=== PATIENT | male | born 1975 | race Caucasian/White ===

== ENCOUNTER → 2016-11-10 | Emergency (ER) | payer BC, OTHER ==
[~2016-11-10] VITALS: Ht 177.8 cm; Wt 83.0 kg
[~2016-11-10] MED LIST: BSS 15 ML IR ONE; FLUORESCEIN (FLUOR-I-STRIPS) 1 MG STRP OU ONE; TETRACAINE 0.5% OPHTH SOLN 4 ML BTL (SINGLE DOSE ONLY) OP ONE
[2016-11-10 23:15] VITALS: BP 141/96
--- OUTSIDE RECORDS SUMMARY | 2016-11-10 23:17 | XMS REPORT | Continuity of Care Document ---
Author Author [facility] Address Unknown Phone Unavailable Allergies Medications Problems Date Dx Coded Attending Type Code Diagnosis Diagnosed By 02/19/2014 ANGELINE SHEFFIELD APRN 296.90 MOOD DISORDER 02/19/2014 ANGELINE SHEFFIELD APRN 719.41 PAIN- SHOULDER 02/19/2014 ANGELINE SHEFFIELD APRN 296.90 MOOD DISORDER 02/19/2014 ANGELINE SHEFFIELD APRN 719.41 PAIN- SHOULDER Procedures Results Encounters ACCT No. Visit Date/Time Discharge Status Pt. Type Provider Facility Loc./Unit Complaint [id number] 03/23/2014 16:19:00 03/23/2014 23: 59:59 CLS Outpatient ANGELINE SHEFFIELD APRN [id number] 02/19/2014 15:59:00 02/19/2014 23: 59:59 CLS Outpatient ANGELINE SHEFFIELD APRN
--- OUTSIDE RECORDS SUMMARY | 2016-11-10 23:17 | XMS REPORT ---
Author OUSMANE Landaverde [facility] eClinicalWorks Address Unknown Phone Unavailable Care Team Providers Care Community Marketing Manager Name Role Phone OUSMANE LAM CP Unavailable Allergies, Adverse Reactions, Alerts Substance Reaction Event Type N.K.D.A. Info Not Available Non Drug Allergy Problems Problem Type Condition Code Onset Dates Condition Status Problem Pain in joint, shoulder region 719.41 Active Assessment Unspecified mood [affective] disorder F39 Active Problem Unspecified episodic mood disorder 296.90 Active Assessment Joint pain M25.50 Active Medications Medication Code System Code Instructions Start Date End Date Status Dosage Prozac [facility] [address]-04 20 mg Once a day Jun 28, 2014 1 capsule by Oral route 1 time per day Meloxicam [facility] [address]-63 15 MG Orally Once a day Jun 28, 2014 take 1 tablet by Oral route 1 time per day Procedures Procedure Coding System Code Date Office Visit, Est Pt., Level 4 CPT-4 33037 August 26, 2015 Vital Signs Date/Time: August 26, 2015 Temperature 98.0 F Weight 205 lbs Height 70 in BMI 29.41 Index Blood Pressure Diastolic 62 mmHg Blood Pressure Systolic 118 mmHg Cardiac Monitoring Heart Rate 72 bpm Results No Known Results Summary Purpose eClinicalWorks Submission
--- NOTE | 2016-11-10 23:59 | ED EENT ---
History of Present Illness General Chief Complaint: Eye Problems Stated Complaint: F O IN RT EYE Nursing Triage Note: PT TO ED 5 W/ C/O POSS FB TO RT EYE ONSET TODAY WHILE WORKING ON HIS TRUCK AT HOME. REPORTS HE ATTEMPTED TO FLUSH HIS EYE BUT DENIES IMPROVEMENT Source: patient Exam Limitations: no limitations History of Present Illness Time seen by provider: 23:38 Initial Comments This 41-year-old gentleman presents to the emergency room with complaints of foreign-body sensation in the right eye. Patient was working on his car when a piece of brittle plastic broke off and debris hit his eye. He attempted flushing the eye out with tap water. However, he still has a foreign body sensation. He denies any significant sensitivity to light or changes in vision. Sensation is migratory but seems to be focused behind the upper eyelid. The incident happened around 17:00. Allergies and Home Medications Allergies Coded Allergies: No Known Drug Allergies (Unverified , 11/10/16) Review of Systems Constitutional: no symptoms reported Eyes: See HPI Ears: No Symptoms Reported Nose: no symptoms reported Mouth: no symptoms reported Skin: no symptoms reported Neurological: No Symptoms Reported Past Srqciyt-Tsqlmh-Ftxehx Hx Patient Social History Alcohol Use: Denies Use Recreational Drug Use: No Smoking Status: Current Everyday Smoker Type Used: Cigarettes Recent Foreign Travel: No Contact w/Someone Who Travel: No Recent Infectious Disease Expo: No Recent Hopitalizations: No Surgeries HX Surgeries: No Respiratory Hx Respiratory Disorders: No Cardiovascular Hx Cardiac Disorders: No Neurological Hx Neurological Disorders: No Genitourinary Hx Genitourinary Disorders: No Gastrointestinal Hx Gastrointestinal Disorders: No Musculoskeletal Hx Musculoskeletal Disorders: No Endocrine Hx Endocrine Disorders: No HEENT HX ENT Disorders: No Cancer Hx Cancer: No Psychosocial Hx Psychiatric Problems: No Physical Exam Vital Signs Vital Sign - Last 12Hours 11/10/16 23:15 Temp 98.3 Pulse 75 Resp 20 B/P (MAP) 141/96 Pulse Ox 99 O2 Delivery Room Air General Appearance: WD/WN, no apparent distress Eyes: right eye other (Minor conjunctival edema), left eye normal inspection, bilateral eye EOMI, bilateral eye PERRL Nose: normal inspection Neck: normal inspection Cardiovascular: regular rate, rhythm, no edema, no murmur Respiratory: lungs clear, normal breath sounds, no respiratory distress, no accessory muscle use Neurologic/Psychiatric: credit representative II-XII nml as tested, no motor/sensory deficits, alert, normal mood/affect, oriented x 3 Skin: normal color, warm/dry Additional Procedures : Progress Fluorescein exam was performed on the right eye. Tetracaine was first applied for anesthesia. No foreign bodies or corneal abrasions were identified with exam. The eye was irrigated with balanced saline. Progress/Results/Core Measures Results/Orders My Orders Orders - REUBEN CHAVARRIA MD Fluorescein Strips (Fcnwy-X-Hauabg) (11/10/16 23:45) Balanced Salt Irrigation Soln (Bss Irrig (11/10/16 23:45) Tetracaine 0.5% Ophth Matilda Sdv (Tetracai (11/10/16 23:45) Medications Given in ED Current Medications Medications Dose Ordered Sig/Yu Route Start Time Stop Time Status Last Admin Dose Admin Balanced Salt Solution 15 ml ONCE ONCE IR 11/10/16 23:45 11/10/16 23:46 DC 11/10/16 23:45 15 ML Fluorescein Sodium 1 mg ONCE ONCE OU 11/10/16 23:45 11/10/16 23:46 DC 11/10/16 23:45 1 MG Tetracaine HCl 1 OR 2 DROPS INTO AFFEC... ONCE ONCE OP 11/10/16 23:45 11/10/16 23:46 DC 11/10/16 23:45 4 ML Vital Signs/I&O Vital Sign - Last 12Hours 11/10/16 23:15 Temp 98.3 Pulse 75 Resp 20 B/P (MAP) 141/96 Pulse Ox 99 O2 Delivery Room Air Blood Pressure Mean: 111 Departure Impression Impression: Primary Impression: Irritation of right eye Disposition: HOME, SELF-CARE Condition: Improved Departure-Patient Inst. Decision time for Depature: 23:57 Referrals: [facility] (PCP) Primary Care Physician WANDA GALAN OD Patient Instructions: NO INSTRUCTIONS GIVEN Add. Discharge Instructions: You may use artificial tears purchased [id number] for moisturizing comfort. You may use Tylenol and/or ibuprofen for pain if needed. Contact Dr. Galan's office or the eye doctor of your choice tomorrow morning if symptoms are still present. Return to the ER if you have worsening symptoms. All discharge instructions reviewed with patient and/or family. Voiced understanding. REUBEN CHAVARRIA MD Nov 10, 2016 23:59
== END | disposition home or self-care (01) ==
LOC: ER 23:14
DX: H57.8 Other specified disorders of eye and adnexa (principal); F17.210 Nicotine dependence, cigarettes, uncomplicated
CPT/HCPCS: 99282

== ENCOUNTER → 2016-11-29 | Outpatient (CLI) | payer BC ==
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
== END ==
LOC: RAD 14:58
PROVIDERS: ATTEND Nurse Practitioner Family
DX: R07.81 Pleurodynia (principal)
CPT/HCPCS: 71100

== ENCOUNTER 2019-03-01 09:04 | Emergency (ER) | payer BC, OTHER ==
[~2019-03-01] VITALS: Ht 177.8 cm; Wt 95.4 kg
[2019-03-01] MEDS ORDERED: NS IV 1000 ML 1,000 ML IV ONE (09:17)
[2019-03-01 09:24] LABS: BASOPHILS % (AUTO) 0 % (0-10); EOSINOPHILS # (AUTO) 0.3 10^3/uL (0.0-0.3); EOSINOPHILS % (AUTO) 1 % (0-10); HEMATOCRIT 47 % (40-54); HEMOGLOBIN 15.5 G/DL (13.3-17.7); LYMPHOCYTES # (AUTO) 2.6 X 10^3 (1.0-4.0); LYMPHOCYTES % (AUTO) 13 % (12-44); MEAN CORPUSCULAR HEMOGLOBIN 29 PG (25-34); MEAN CORPUSCULAR HGB CONC 33 G/DL (32-36); MEAN CORPUSCULAR VOLUME 87 FL (80-99); MEAN PLATELET VOLUME 11.1 FL (7.4-10.4); MONOCYTES # (AUTO) 1.4 X 10^3 (0.0-1.0); MONOCYTES % (AUTO) 7 % (0-12); NEUTROPHILS # (AUTO) 15.3 X 10^3 (1.8-7.8); NEUTROPHILS % (AUTO) 78 % (42-75); PLATELET COUNT 246 10^3/uL (130-400); RED CELL DISTRIBUTION WIDTH 12.8 % (10.0-14.5); WHITE BLOOD COUNT 19.6 10^3/uL (4.3-11.0)
[2019-03-01] MEDS ORDERED: DILTIAZEM 25 MG/5 ML INJ (CARDIZEM) VIAL IVP ONE (09:30)
[2019-03-01] MEDS ORDERED: DILTIAZEM IV FOR DRIP 125 MG in NS (IVPB) 100 ML IV SCH (09:30)
[2019-03-01] MEDS ORDERED: LORazepam INJ 2 MG/ML (ATIVAN) VIAL IVP ONE ×3 (09:30→12:00)
[2019-03-01] MEDS ORDERED: ONDANSETRON 4 MG/2 ML (SDV) Z0FRAN IVP ONE (09:30)
[2019-03-01] MEDS ORDERED: fentaNYL INJECTION 100 MCG/2 ML AMP IVP ONE (09:30)
[2019-03-01 09:40] LABS: PROTHROMBIN TIME PATIENT 13.4 SEC (12.2-14.7)
[2019-03-01 09:48] LABS: ALANINE AMINOTRANSFERASE 82 U/L (0-55); ALBUMIN 4.5 GM/DL (3.2-4.5); ALKALINE PHOSPHATASE 148 U/L (40-136); BILIRUBIN,TOTAL 0.7 MG/DL (0.1-1.0); BUN/CREATININE RATIO 10; CALCIUM 9.8 MG/DL (8.5-10.1); CARBON DIOXIDE 18 MMOL/L (21-32); CHLORIDE 104 MMOL/L (98-107); CREATININE SERUM 1.03 MG/DL (0.60-1.30); GFR ESTIMATED > 60; GLUCOSE 182 MG/DL (70-105); MAGNESIUM 1.8 MG/DL (1.6-2.4); POTASSIUM 3.5 MMOL/L (3.6-5.0); SODIUM 140 MMOL/L (135-145); TOTAL PROTEIN 7.9 GM/DL (6.4-8.2)
--- NOTE | 2019-03-01 09:53 | NUR ---
TO CT ACCOMPIED BY CT NURSE COOKIE
[2019-03-01] MEDS ORDERED: FLUO40CA (10:05)
--- NOTE | 2019-03-01 10:05 | NUR ---
BACK FROM CT.
--- NOTE | 2019-03-01 10:14 | NUR ---
PATIENT CON'T TO C/O HEADACHE. NOTIFIED.
--- NOTE | 2019-03-01 10:21 | NUR ---
CONVERTED TO NSR.
--- NOTE | 2019-03-01 10:37 | Diagnostic Imaging Report ---
PROCEDURE: CT head wo r/o stroke. TECHNIQUE: Multiple contiguous axial images were obtained through the brain without the use of intravenous contrast. Auto Exposure Controls were utilized during the CT exam to meet ALARA standards for radiation dose reduction. INDICATION: Weakness and headache. No prior studies are available for comparison. Lateral ventricles are normal in size. There is some mild prominence of the temporal horns bilaterally. Acute subarachnoid hemorrhage is present. There is acute subarachnoid blood identified in the suprasellar cistern as well as the pre-pontine cistern. There is a small amount of acute blood identified within the 4th ventricle as well as the 3rd ventricle. There is a small focus of hyperdensity in the region of the basilar tip. No midline shift is identified. No intraparenchymal hemorrhage is detected. There is some mucosal thickening of the ethmoid air cells. IMPRESSION: Findings consistent with acute subarachnoid hemorrhage, as described. Findings favor ruptured aneurysm. There is a small focus of hyperdensity in the region of the basilar tip and this could be secondary to basilar tip aneurysm. Correlation with conventional or CT angiography is recommended for further evaluation. Findings were discussed Dr. Martínez of the emergency Department prior to this dictation. Dictated by: Dictated on workstation # [id number]
--- NOTE | 2019-03-01 10:38 | Diagnostic Imaging Report ---
INDICATION: Nausea and vomiting and headache. Time of exam 10:07 AM The heart size is normal. The pulmonary vascularity is unremarkable. The lungs are clear. No infiltrate, effusion or pneumothorax is detected. Impression: No acute cardiopulmonary process is detected. Dictated by: Dictated on workstation # [id number]
[2019-03-01] MEDS ORDERED: morphine INJ 10 MG/ML 1ML (SYR OR VIAL) IVP STA (10:48)
--- NOTE | 2019-03-01 10:48 | ED General ---
General Chief Complaint: Head/Cervical Problems Stated Complaint: WEAKNESS;N/V;ANDINO Nursing Triage Note: TO ED PER EMS C/O HEAD AND NECK PAIN FOR 3 DAYS DENIES CHEST PAIN.ALSO REPORTS FEEING NUMB ALL OVER. MONITOR SHOW'S A FIB WITH RATE OF 150 DENIES ANY HX OF A FIB. PALE AND DIAPHORETIC. PMH OF DRINKING DAILY LAST DRINK YESTERDAY. Nursing Sepsis Screen: No Definite Risk Source of Information: Patient Exam Limitations: No Limitations History of Present Illness Date Seen by Provider: Mar 01, 2019 Time Seen by Provider: 09:05 Initial Comments This 43-year-old gentleman presents to the emergency room with atrial fibrillation with RVR. He presents via EMS due to generally feeling quite ill and nausea and vomiting. He complains of feeling ill for a couple of weeks. Illness included a dry cough. He denies any fever. He has had head and neck pain over the past 2 days without any focal neurologic deficits. Patient's heart rate on arrival was around 150 and rhythm appears to be atrial fibrillation. Patient also admits to consuming alcohol daily. He has not had any alcohol since yesterday. He denies any prior history of atrial fibrillation. He denies any chest pain. Patient denies any trauma. Allergies and Home Medications Allergies Coded Allergies: No Known Drug Allergies (Unverified , 11/10/16) Patient Home Medication List Home Medication List Reviewed: Yes Review of Systems Review of Systems Constitutional: see HPI EENTM: no symptoms reported Respiratory: see HPI Cardiovascular: see HPI Gastrointestinal: no symptoms reported Genitourinary: no symptoms reported Musculoskeletal: no symptoms reported Skin: other (diaphoretic) Psychiatric/Neurological: See HPI, Headache Hematologic/Lymphatic: No Symptoms Reported Immunological/Allergic: no symptoms reported Past Godolyh-Uxakjy-Zjxhld Hx Past Med/Social Hx: Reviewed and Corrections made Patient Social History Alcohol Use: Regular Use Alcohol Beverage of Choice: Beer Recreational Drug Use: No Smoking Status: Current Everyday Smoker Type Used: Cigarettes Recent Foreign Travel: No Contact w/Someone Who Travel: No Recent Infectious Disease Expo: No Recent Hopitalizations: No Past Medical History Surgeries: No Respiratory: No Cardiac: No Neurological: No Genitourinary: No Gastrointestinal: No Musculoskeletal: No Endocrine: No HEENT: No Cancer: No Psychosocial: No Integumentary: No Blood Disorders: No Physical Exam Vital Signs Vital Signs - First Documented 03/01/19 03/01/19 09:05 12:05 Temp 36.4 Pulse 158 Resp 18 B/P (MAP) 150/95 (113) Pulse Ox 100 O2 Delivery Nasal Cannula O2 Flow Rate 2.00 Capillary Refill : Less Than 3 Seconds Height, Weight, BMI Height: 5'10.00" Weight: 183lbs. oz. 83.282822jf; 30.00 BMI Method:Stated General Appearance: WD/WN, Moderate Distress HEENT: PERRL/EOMI, Normal ENT Inspection, Pharynx Normal Neck: Normal Inspection Respiratory: Lungs Clear, Normal Breath Sounds, No Accessory Muscle Use, No Respiratory Distress Cardiovascular: No Edema, No Murmur, Irregularly Irregular, Tachycardia Gastrointestinal: Normal Bowel Sounds, Non Tender, Soft Extremity: Normal Inspection, No Pedal Edema Neurologic/Psychiatric: Alert, Oriented x3, No Motor/Sensory Deficits, safety trainer II- XII Norm as Tested, Other (cognition dulled but alert and oriented) Skin: Diaphoresis, Pallor Progress/Results/Core Measures Suspected Sepsis Recent Fever Within 48 Hours: No Infection Criteria Present: Suspected New Infection New/Unexplained Altered Menta: No Sepsis Screen: No Definite Risk SIRS Temperature: Pulse: 158 Respiratory Rate: 18 Laboratory Tests 03/01/19 09:15: White Blood Count 19.6H Blood Pressure 143 /109 Mean: 120 Laboratory Tests 03/01/19 09:15: Creatinine 1.03, INR Comment 1.0, Platelet Count 246, Total Bilirubin 0.7 Results/Orders Lab Results Laboratory Tests Test 03/01/19 09:15 03/01/19 11:12 Range/Units White Blood Count 19.6 H 4.3-11.0 10^3/uL Red Blood Count 5.36 4.35-5.85 10^6/uL Hemoglobin 15.5 13.3-17.7 G/DL Hematocrit 47 40-54 % Mean Corpuscular Volume 87 80-99 FL Mean Corpuscular Hemoglobin 29 25-34 PG Mean Corpuscular Hemoglobin Concent 33 32-36 G/DL Red Cell Distribution Width 12.8 10.0-14.5 % Platelet Count 246 130-400 10^3/uL Mean Platelet Volume 11.1 H 7.4-10.4 FL Neutrophils (%) (Auto) 78 H 42-75 % Lymphocytes (%) (Auto) 13 12-44 % Monocytes (%) (Auto) 7 0-12 % Eosinophils (%) (Auto) 1 0-10 % Basophils (%) (Auto) 0 0-10 % Neutrophils # (Auto) 15.3 H 1.8-7.8 X 10^3 Lymphocytes # (Auto) 2.6 1.0-4.0 X 10^3 Monocytes # (Auto) 1.4 H 0.0-1.0 X 10^3 Eosinophils # (Auto) 0.3 0.0-0.3 10^3/uL Basophils # (Auto) 0.0 0.0-0.1 10^3/uL Neutrophils % (Manual) 74 % Lymphocytes % (Manual) 13 % Monocytes % (Manual) 6 % Eosinophils % (Manual) 2 % Basophils % (Manual) 0 % Band Neutrophils 5 % Blood Morphology Comment NORMAL Erythrocyte Sedimentation Rate 4 0-15 MM/HR Prothrombin Time 13.4 12.2-14.7 SEC INR Comment 1.0 0.8-1.4 Activated Partial Thromboplast Time 33 24-35 SEC Sodium Level 140 135-145 MMOL/L Potassium Level 3.5 L 3.6-5.0 MMOL/L Chloride Level 104 98-107 MMOL/L Carbon Dioxide Level 18 L 21-32 MMOL/L Anion Gap 18 H 5-14 MMOL/L Blood Urea Nitrogen 10 7-18 MG/DL Creatinine 1.03 0.60-1.30 MG/DL Estimat Glomerular Filtration Rate > 60 BUN/Creatinine Ratio 10 Glucose Level 182 H 70-105 MG/DL Calcium Level 9.8 8.5-10.1 MG/DL Corrected Calcium 9.4 8.5-10.1 MG/DL Magnesium Level 1.8 1.6-2.4 MG/DL Total Bilirubin 0.7 0.1-1.0 MG/DL Aspartate Amino Transf (AST/SGOT) 38 H 5-34 U/L Alanine Aminotransferase (ALT/SGPT) 82 H 0-55 U/L Alkaline Phosphatase 148 H 40-136 U/L Myoglobin 48.4 10.0-92.0 NG/ML Troponin I < 0.028 <0.028 NG/ML C-Reactive Protein High Sensitivity 1.08 H 0.00-0.50 MG/DL Total Protein 7.9 6.4-8.2 GM/DL Albumin 4.5 3.2-4.5 GM/DL Serum Alcohol < 10 <10 MG/DL Urine Color YELLOW Urine Clarity CLEAR Urine pH 8 5-9 Urine Specific [place] 1.010 L 1.016-1.022 Urine Protein 1+ H NEGATIVE Urine Glucose (UA) 4+ H NEGATIVE Urine Ketones 3+ H NEGATIVE Urine Nitrite NEGATIVE NEGATIVE Urine Bilirubin NEGATIVE NEGATIVE Urine Urobilinogen NORMAL NORMAL MG/DL Urine Leukocyte Esterase NEGATIVE NEGATIVE Urine RBC (Auto) NEGATIVE NEGATIVE Urine RBC NONE /HPF Urine WBC 0-2 /HPF Urine Crystals NONE /LPF Urine Bacteria NEGATIVE /HPF Urine Casts NONE /LPF Urine Mucus NEGATIVE /LPF Urine Culture Indicated NO Urine Opiates Screen NEGATIVE NEGATIVE Urine Oxycodone Screen NEGATIVE NEGATIVE Urine Methadone Screen NEGATIVE NEGATIVE Urine Propoxyphene Screen NEGATIVE NEGATIVE Urine Barbiturates Screen NEGATIVE NEGATIVE Ur Tricyclic Antidepressants Screen NEGATIVE NEGATIVE Urine Phencyclidine Screen NEGATIVE NEGATIVE Urine Amphetamines Screen NEGATIVE NEGATIVE Urine Methamphetamines Screen NEGATIVE NEGATIVE Urine Benzodiazepines Screen NEGATIVE NEGATIVE Urine Cocaine Screen NEGATIVE NEGATIVE Urine Cannabinoids Screen POSITIVE H NEGATIVE Micro Results Microbiology 03/01/19 Influenza Types A,B Antigen (GEETA) - Final, Complete My Orders Orders - REUBEN MARTÍNEZ MD Cbc With Automated Diff (03/01/19 09:16) Magnesium (03/01/19 09:16) Chest 1 View, Ap/Pa Only (03/01/19 09:16) Ekg Tracing (03/01/19 09:16) Cardiac Profile 1 (03/01/19 09:16) Comprehensive Metabolic Panel (03/01/19 09:16) Myoglobin Serum (03/01/19 09:16) Protime With Inr (03/01/19 09:16) Partial Thromboplastin Time (03/01/19 09:16) O2 (03/01/19 09:16) Monitor-Rhythm Ecg Trace Only (03/01/19 09:16) Ed Iv/Invasive Line Start (03/01/19 09:16) Ct Head Wo-R/O Stroke (03/01/19 09:16) Hs C Reactive Protein (03/01/19 09:16) Ua Culture If Indicated (03/01/19 09:16) Erythrocyte Sedimentation Rate (03/01/19 09:16) Fentanyl Injection (Sublimaze Injection (03/01/19 09:30) Ondansetron Injection (Zofran Injectio (03/01/19 09:30) Ns Iv 1000 Ml (Sodium Chloride 0.9%) (03/01/19 09:17) Ns (Ivpb) (Sodium C... W/Diltiazem Iv Fo (03/01/19 09:30) Diltiazem Injection (Cardizem Injection) (03/01/19 09:30) Influenza A And B Antigens (03/01/19 09:17) Alcohol (03/01/19 09:20) Drug Screen Stat (Urine) (03/01/19 09:20) Lorazepam Injection (Ativan Injection) (03/01/19 09:30) Manual Differential (03/01/19 09:15) Lorazepam Injection (Ativan Injection) (03/01/19 10:15) Ekg Tracing (03/01/19 10:26) Morphine Injection (Morphine Injection (03/01/19 10:48) Tranexamic Acid Injection (Cyklokapron I (03/01/19 11:45) Tranexamic Acid Injection (Cyklokapron I (03/01/19 11:45) Lorazepam Injection (Ativan Injection) (03/01/19 12:00) Hydromorphone Injection (Dilaudid Inject (03/01/19 12:00) Ns (Ivpb) (Sodium C... W/Tranexamic Acid (03/01/19 12:00) Labetalol Injection (Normodyne Injection (03/01/19 12:30) Medications Given in ED Current Medications Medications Dose Ordered Sig/Yu Route Start Time Stop Time Status Last Admin Dose Admin Diltiazem HCl 10 mg ONCE ONCE IVP 03/01/19 09:30 03/01/19 09:31 DC 03/01/19 09:30 10 MG Fentanyl Citrate 50 mcg ONCE ONCE IVP 03/01/19 09:30 03/01/19 09:31 DC 03/01/19 09:34 50 MCG Hydromorphone HCl 0.5 mg ONCE ONCE IV 03/01/19 12:00 03/01/19 12:01 DC 03/01/19 12:05 0.5 MG Lorazepam 1 mg ONCE ONCE IVP 03/01/19 09:30 03/01/19 09:31 DC 03/01/19 09:32 1 MG Lorazepam 1 mg ONCE ONCE IVP 03/01/19 10:15 03/01/19 10:16 DC 03/01/19 10:21 1 MG Lorazepam 1 mg ONCE ONCE IVP 03/01/19 12:00 03/01/19 12:01 DC 03/01/19 12:06 1 MG Ondansetron HCl 4 mg ONCE ONCE IVP 03/01/19 09:30 03/01/19 09:31 DC 03/01/19 09:29 4 MG Sodium Chloride 1,000 ml @ 0 mls/hr Q0M ONCE IV 03/01/19 09:17 03/01/19 09:20 DC 03/01/19 09:35 1,000 MLS/HR Tranexamic Acid 1000 mg/Sodium Chloride 110 ml @ 330 mls/hr ONCE ONCE IV 03/01/19 11:45 03/01/19 12:04 DC 03/01/19 11:49 330 MLS/HR Vital Signs/I&O 03/01/19 03/01/19 03/01/19 03/01/19 09:05 09:46 12:05 12:42 Temp 36.4 Pulse 158 58 Resp 18 18 B/P (MAP) 150/95 (113) 143/109 124/62 Pulse Ox 100 97 97 O2 Delivery Nasal Cannula O2 Flow Rate 2.00 Capillary Refill : Less Than 3 Seconds Blood Pressure Mean: 120 POS Progress Note #1: Time: 10:59 Progress Note Patient's atrial fibrillation with RVR was treated with Cardizem 10 mg bolus followed by a drip. He has since converted to sinus rhythm with a rate between 50 and 100. Headache was evaluated with CT scan and revealed a subarachnoid bleed. This is symmetrical and is likely from the basilar artery. He is neurologically intact. Pain has been treated with fentanyl and morphine. EMS administered Zofran 4 mg in route. We have administered an additional 4 mg of Zofran. There is concern for alcohol withdrawal as well. 2 doses of Ativan 1 mg each have been administered. Arrangements are currently being made for transfer to [facility] which is the nearest facility felt to have comprehensive services including IR therapy appropriate for this patient. A leukocytosis of 19,000 was noted on the CBC. However, ESR and CRP are low suggesting infectious complication is unlikely. Patient is stable at this time and normotensive. Progress Note #2: Time: 12:09 Progress Note Transfer was accepted by Dr. Lee, neurosurgeon at [facility]. He recommends systolic blood pressure he kept below 140. Patient's blood pressure has elevated again as his pain is rebounding. We will give another dose of Ativan 1 mg and treat pain with Dilaudid 0.5 mg. If this does not improve his blood pressure, we will treat with labetalol. We are awaiting EMS for transport. He continues on the Cardizem drip. Progress Note #3: Time: 12:25 Progress Note Blood pressure is still elevated at 161/97 after the Dilaudid and Ativan. Labetalol 10 mg IV is being administered for treatment of hypertension. Progress Note #4: Progress Note Blood pressure actually trended down into the 120s systolic before labetalol could be given. Labetalol was not administered. Patient was then transferred to [facility]. ECG EKG #1: EKG Time: 09:16 Rate: 58 Rhythm: A Fib/Flutter Comment Atrial fibrillation or flutter with a heart rate of 157. Possibly atrial flutter with a 2-1 conduction. Repolarization abnormality could suggest ischemia. EKG #2: EKG Time: 11:01 Rate: 58 Rhythm: Normal Sinus Intervals: Normal ECG Impression: Normal Comment Normal sinus rhythm with no ST elevation or depression. No abnormal intervals or axis deviation. This is a conversion to sinus rhythm from an atrial tachycardia. Diagnostic Imaging Diagonstic Imaging: Xray Plain Films/CT/US/NM/MRI: chest Comments Chest x-ray viewed by me and report reviewed. See report below: NAME: SUSAN WARNER [facility] REC#: [id number] PT STATUS: REG ER : 1975 PHYSICIAN: REUBEN MARTÍNEZ MD ADMIT DATE: 03/01/19/ER Draft Date of Exam:03/01/19 CHEST 1 VIEW, AP/PA ONLY INDICATION: Nausea and vomiting and headache. Time of exam 10:07 AM The heart size is normal. The pulmonary vascularity is unremarkable. The lungs are clear. No infiltrate, effusion or pneumothorax is detected. Impression: No acute cardiopulmonary process is detected. Dictated on workstation # [id number] Dict: 03/01/19 1035 Trans: 03/01/19 1037 [id number] Interpreted by: JORGE L GATICA MD Diagonstic Imaging: CT Plain Films/CT/US/NM/MRI: head Comments CT head viewed by me, discussed with the radiologist, and report reviewed. See report below: NAME: SUSAN WARNER [facility] REC#: [id number] PT STATUS: REG ER : 1975 PHYSICIAN: REUBEN MARTÍNEZ MD ADMIT DATE: 03/01/19/ER Draft Date of Exam:03/01/19 CT HEAD WO-R/O STROKE PROCEDURE: CT head wo r/o stroke. TECHNIQUE: Multiple contiguous axial images were obtained through the brain without the use of intravenous contrast. Auto Exposure Controls were utilized during the CT exam to meet ALARA standards for radiation dose reduction. INDICATION: Weakness and headache. No prior studies are available for comparison. Lateral ventricles are normal in size. There is some mild prominence of the temporal horns bilaterally. Acute subarachnoid hemorrhage is present. There is acute subarachnoid blood identified in the suprasellar cistern as well as the pre-pontine cistern. There is a small amount of acute blood identified within the 4th ventricle as well as the 3rd ventricle. There is a small focus of hyperdensity in the region of the basilar tip. No midline shift is identified. No intraparenchymal hemorrhage is detected. There is some mucosal thickening of the ethmoid air cells. IMPRESSION: Findings consistent with acute subarachnoid hemorrhage, as described. Findings favor ruptured aneurysm. There is a small focus of hyperdensity in the region of the basilar tip and this could be secondary to basilar tip aneurysm. Correlation with conventional or CT angiography is recommended for further evaluation. Findings were discussed Dr. Martínez of the emergency Department prior to this dictation. Dictated on workstation # [id number] Dict: 03/01/19 1018 Trans: 03/01/19 1037 [id number] [id number] Interpreted by: JORGE L GATICA MD Departure Impression Primary Impression: Subarachnoid hemorrhage Additional Impressions: Atrial fibrillation with RVR Alcohol withdrawal Qualified Codes: F10.239 - Alcohol dependence with withdrawal, unspecified Leukocytosis Qualified Codes: D72.829 - Elevated white blood cell count, unspecified Disposition: SHT-TRM HOSP Condition: Stable Transfer Transfer Reason: Exceeds level of care Time Spoke to Accepting Phy: 10:52 Transfer Time: 12:47 Transfer Facility: [facility] Method of Transfer: EMS Departure-Patient Inst. Referrals: [facility] (PCP/Family) Primary Care Physician REUBEN MARTÍNEZ MD Mar 01, 2019 10:48 POS
--- NOTE | 2019-03-01 10:53 | NUR ---
[facility] NOTIFIED OF TRANSFER.
--- NOTE | 2019-03-01 11:04 | NUR ---
MONITOR SR RATE 46
--- NOTE | 2019-03-01 11:04 | NUR ---
CT REPORT FAXED TO [facility]
--- NOTE | 2019-03-01 11:06 | NUR ---
DR LUNDBERG HAS TALKED TO WAITING FOR CALL BACK.
[2019-03-01 11:18] LABS: BILIRUBIN,URINE NEGATIVE (NEGATIVE); CLARITY,URINE CLEAR; COLOR,URINE YELLOW; GLUCOSE, URINE (UA) 4+ (NEGATIVE); KETONES,URINE 3+ (NEGATIVE); LEUKOCYTE ESTERASE ,URINE NEGATIVE (NEGATIVE); NITRITE,URINE NEGATIVE (NEGATIVE); PH,URINE 8 (5-9); PROTEIN,URINE 1+ (NEGATIVE)
--- NOTE | 2019-03-01 11:24 | NUR ---
REMAINS IN SR GCS 15
[2019-03-01 11:34] LABS: AMPHETAMINE SCREEN, URINE NEGATIVE (NEGATIVE); BARBITURATE SCREEN URINE NEGATIVE (NEGATIVE); BENZODIAZEPINES SCREEN URINE NEGATIVE (NEGATIVE); CANNABINOID SCREEN, URINE POSITIVE (NEGATIVE); COCAINE SCREEN URINE NEGATIVE (NEGATIVE); METHADONE STAT NEGATIVE (NEGATIVE); METHAMPHETAMINE SCREEN URINE S NEGATIVE (NEGATIVE); OPIATE SCREEN URINE NEGATIVE (NEGATIVE); OXYCODONE STAT NEGATIVE (NEGATIVE); PROPOXYPHENE STAT NEGATIVE (NEGATIVE); TRICYCLIC ANTIDEPRESSANTS SCRE NEGATIVE (NEGATIVE)
[2019-03-01 11:36] LABS: BACTERIA,URINE NEGATIVE /HPF; WBC,URINE 0-2 /HPF
[2019-03-01] MEDS ORDERED: TRANEXAMIC ACID INJECTION 1,000 MG in NS (IVPB) 100 ML IV ONE (11:45)
[2019-03-01] MEDS ORDERED: TRANEXAMIC ACID 100 MG/ML 10 ML INJECTION IV ONE (11:45)
[2019-03-01 12:00] LABS: BAND NEUTROPHILS 5 %; BASOPHILS % (MANUAL) 0 %; EOSINOPHILS % (MANUAL) 2 %; LYMPHOCYTES % (MANUAL) 13 %; MONOCYTES % (MANUAL) 6 %; NEUTROPHILS % (MANUAL) 74 %
[2019-03-01] MEDS ORDERED: TRANEXAMIC ACID INJECTION 1,000 MG in NS (IVPB) 250 ML IV SCH (12:00)
[2019-03-01] MEDS ORDERED: HYDROmorphone 2 MG/ML VIAL (DILAUDID) IV ONE (12:00)
[2019-03-01 12:01] LABS: RBC MORPH NORMAL
[2019-03-01] MEDS ORDERED: LABETALOL HCL 20 MG/4 ML VIAL IV ONE (12:30)
--- NOTE | 2019-03-01 12:35 | NUR ---
EMS HERE. FOR TRANSFER
[2019-03-01 12:42] VITALS: BP 124/62
== END 2019-03-01 12:47 | disposition short-term general hospital (02) ==
LOC: EDUNIT# 09:04 → ER 09:05
DX: I60.9 Nontraumatic subarachnoid hemorrhage, unspecified (principal); I48.91 Unspecified atrial fibrillation; F10.239 Alcohol dependence with withdrawal, unspecified; D72.829 Elevated white blood cell count, unspecified; F17.210 Nicotine dependence, cigarettes, uncomplicated
CPT/HCPCS: 36415; 70450; 71045; 80053; 80306; 80320; 81000; 83735; 83874; 84484; 85007; 85027; 85610; 85652; 85730; 86141; 87804; 93005; 93041; 96361; 96365; 96366; 96367; 96375; 96376

== ENCOUNTER 2019-03-23 09:22 | Inpatient (IN) | payer OTHER ==
[~2019-03-23] VITALS: Ht 177.8 cm; Wt 88.1 kg
[~2019-03-23 09:22] MED LIST changes: -BSS 15 ML IR ONE; +FLUO40CA; -FLUORESCEIN (FLUOR-I-STRIPS) 1 MG STRP OU ONE; -TETRACAINE 0.5% OPHTH SOLN 4 ML BTL (SINGLE DOSE ONLY) OP ONE
[2019-03-23] MEDS ORDERED: LOPERAMIDE 2 MG (IMODIUM) TABLET PO PRN (10:30)
[2019-03-23] MEDS ORDERED: CALCIUM CARBONATE 500 MG (TUMS) TAB.CHEW PO PRN (10:30)
[2019-03-23] MEDS ORDERED: DOCUSATE SODIUM 100 MG (COLACE) CAP PO PRN (10:30)
[2019-03-23] MEDS ORDERED: ALPRAZolam 0.25 MG (XANAX) TAB PO PRN (10:30)
[2019-03-23] MEDS ORDERED: BISACODYL 10 MG SUPP (DULCOLAX) PR PRN (10:30)
[2019-03-23] MEDS ORDERED: ONDANSETRON 4 MG (ZOFRAN) ORAL DISSOLVE TAB PO PRN (10:30)
[2019-03-23] MEDS ORDERED: MELATONIN 3 MG TABLET PO PRN (10:30)
[2019-03-23] MEDS ORDERED: FLEET ENEMA ADULT 1 EA BTL PR PRN (10:30)
[2019-03-23] MEDS ORDERED: diphenhydrAMINE 25 MG TAB (BENADRYL) PO PRN (10:30)
[2019-03-23] MEDS ORDERED: LACTULOSE SYRUP 10GM/15ML (ENULOSE) 30ML UDC PO PRN (10:30)
[2019-03-23] MEDS ORDERED: guaiFENesin/CODEINE (ROBITUSSIN AC) 10ML UDC PO PRN (10:30)
--- NOTE | 2019-03-23 12:40 | NUR ---
Received pt information on current EN order. As we do not carry Isosource, would recommend the following: Jevity 1.5 @ goal rate of 55 ml/hr. As pt had been receiving TF at a higher rate, recommend beginning at 30 ml and increase by 10 ml/hr q6h as tolerated. Add 2 packets of Beneprotein (1 in AM, 1 in PM) per day for added protein. At goal rate, provides 2130 kcal (23 kcal/kg); 96 g Pro (1.0 g Pro/kg), and 1003 ml free water. Flush with 150 ml H2O q4h. With flushes, provides 1903 ml free water. Will continue to follow and reassess as pt needs and status change. Ric Gregg MS, RD, LD [phone]
[2019-03-23 12:50] VITALS: BP 126/85
--- NOTE | 2019-03-23 12:50 | NUR ---
TIMMYSUSAN Saravia admitted to room 227-1, with an admitting diagnosis of SUBARACHNOID HEMORRHAGE, on 03/23/19 from [facility] via EMS, accompanied by EMS STAFF AND X-. SUSAN WARNER introduced to surroundings, call light, bed controls, phone, TV, temperature control, lights, meal times, smoking policy, visitor policy, side rail policy, bathrooms and showers. Patient Rights given to patient in the handbook. SUSAN WARNER verbalizes understanding that [facility] is not responsible for the loss or damage to any personal effects or valuables that are kept in the patients posession during their hospitalization. The following Patient Care Plans were discussed with the PATIENT: Discharge Planning and DYSPHAGIA. SUSAN WARNER verbalizes understanding of Interdisciplinary Patient Education. Patient received Patient Rights Booklet, which includes Privacy Act Statement and Data Collection Information Summary.
[2019-03-23] MEDS ORDERED: MAG355OR16 PO (13:27)
[2019-03-23] MEDS ORDERED: FLUO20CA42 PO (13:27)
[2019-03-23] MEDS ORDERED: FOLI1TAB24 PO (13:27)
[2019-03-23] MEDS ORDERED: MELA3TAB PO (13:27)
[2019-03-23] MEDS ORDERED: DOCU50LI NG (13:27)
[2019-03-23] MEDS ORDERED: HEPA50002 SC (13:27)
[2019-03-23] MEDS ORDERED: MECL-106 PO (13:27)
[2019-03-23] MEDS ORDERED: OXC5T PO (13:27)
[2019-03-23] MEDS ORDERED: LEVE100S16 NG (13:27)
[2019-03-23] MEDS ORDERED: PANTOPRAZOLE NG (13:27)
[2019-03-23] MEDS ORDERED: DOXA4TAB2 NG (13:27)
[2019-03-23] MEDS ORDERED: GUAI100L13 PO (13:27)
[2019-03-23] MEDS ORDERED: ACET160L29 PO (13:27)
[2019-03-23] MEDS ORDERED: METH500T7 PO (13:27)
--- NOTE | 2019-03-23 13:32 | NUR ---
UPDATED MED REC WITH DISCHARGE ORDERS FROM . THERE WERE 13 NEW MEDS ORDERED AT DISCHARGE AND HE WAS TO CHANGE HIS FLUOXETINE 40M DAILY TO 20MG DAILY. I WILL UPDATE THE MED REC BACK TO THE HOME MEDICATIONS THE PATIENT WAS TAKING PRIOR TO DISCHARGE FROM FOR PROPER DISCHARGE TO HOME ORDERS AT A LATER DATE. Addendum: 03/23/19 at 1635 by DOUG MORAN [facility] REMOVED THE 13 NEW MEDICATIONS THAT WERE ORDERED UPON DISCHARGE FROM . I CHANGED THE FLUOXETINE 20MG DAILY BACK TO THE 40MG DAILY HOME DOSE THE PATIENT WAS TAKING UPON ADMISSION TO .
--- NOTE | 2019-03-23 14:59 | ST Cognitive Linguistic Eval ---
Speech Evaluation-General Medical Diagnosis Subarrachnoid Hemorrhage Onset Date: Mar 23, 2019 Therapy Diagnosis Therapy Diagnosis: Cognitive-communication Referral Referring Physician: Dr. Garcia Medical History Reviewed History: Yes Social History Home: Single Level Current Living Status: Friend Speech PLF-Current Status Prior Level of Function The patient lived in a home with a roomate. 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 Patient was independent with all of his daily needs. Subjective Patient was pleasant and cooperative with the cognitive assessment. Language Eval: Auditory Comprehends Simple Yes/No Ques: Functional Indent/Objects Multiple Estrada: Functional Ident/Pics in Multiple Estrada: Functional Follows 1-Step Commands: Functional Follows Complex Directions: Mild Follows General Conversations: Functional Language Eval: Verbal Language Completes Spontaneous Greeting: Functional Produces Auto, Serial Info: Functional Imitates Simple Words/Phrases: Functional Word Finding: Mild Requests Basic Needs: Functional States Basic Personal Info: Functional Expresses Complex Ideas: Mild Objective Cognitive Domain Attention: WNL Memory: Mild Problem Solving: Mild Executive Functions: Mild Visuospatial Skills: WNL Composite Severity Rating: WNL Clock Drawing Severity Rating: WNL Objective Formal/Standardized Tests [facility] Status ([facility]) Results /, Mild Neurocognitive Disorder range of function Oral Motor/Speech Production WIthin Functional Limits Impression The patient is a pleasant 44 year old male who was transferred to the ARU from due to Subarrachnoid Hemorrhage. Patient was given the SLUMS with a score of 21/30 obtained. The patient will receive skilled ST for cognitive improvement with focus on safety awareness and independence. The patient will also be followed with dysphagia due to having a PEG placed on 03/20/19. Speech Patient Assess Expression of Ideas/Wants: Exhibits (3) Understanding Verbal Content: Usually Understands (3) Brief Interview-Mental Status: Yes Repetition of Three Words: Three (3) Temporal Orientation: Year: Correct (3) Temporal Orientation: Month: Accurate within 5 days(2) Temporal Orientation: Day: Correct (1) Recall : Wear to say "Sock": Yes, no cue required (2) Recall : Color: Yes, after cueing (1) Recall : Bed: No, could not recall (0) Memory/Recall Ability: Current season, That he or she is in a hsp/hsp unit Speech Short Term Goals Short Term Goals Short Term Goals 1) The patient will complete memory tasks related to his daily needs at 90% or greater. 2) The patient will complete safety awareness tasks related to his daily needs at 90% or greater. 3) The patient will complete problem solving tasks related to his daily needs at 90% or greater. Speech Files Supervisor Goals Mcc Goals The patient will improve cognitive-communication necessary for safety and daily living tasks with minimal assist. Speech-Plan Patient/Family Goals Patient/Family Goals: The patient plans on moving in with his ex- upon discharge until he is able to safely return to his home. Treatment Plan Speech Therapy Treatment Plan: Continue Plan of Care Patient will receive skilled ST services for cognition and dysphagia as indicated. Treatment Duration: Mar 31, 2019 Frequency: 5 times per week Estimated Hrs Per Day: .5 hour per day Rehab Potential: Good Barriers to Learning: Patient has residual affects of Subarrachnoid Hemmorhage Pt/Family Agrees to Plan: Yes Safety Risks/Education Teaching Recipient: Patient Teaching Methods: Discussion Response to Teaching: Verbalize Understanding Education Topics Provided: Safety within his room and communication of his wants/needs. Time Speech Therapy Time In: 14:40 Speech Therapy Time Out: 14:55 Total Billed Time: 15 Billed Treatment Time 1, SPSNDCOMELIZABETH Morales Mar 23, 2019 14:59 POS
[2019-03-23] MEDS ORDERED: ACETAMINOPHEN PO SCH (15:00)
[2019-03-23] MEDS ORDERED: NON-FORMULARY MEDICATION 1 EA EA (Mag Hydrox/Aluminum Hyd/Simeth (Maalox Advanced Suspensi PO PRN (15:00)
[2019-03-23] MEDS ORDERED: MECLIZINE 25 MG (ANTIVERT) TAB PO PRN (15:00)
[2019-03-23] MEDS ORDERED: guaiFENesin SYRUP 100 MG/5 ML 10 ML (ROBITUSSIN SF) PO PRN (15:00)
[2019-03-23] MEDS ORDERED: NON-FORMULARY MEDICATION 1 EA EA (Heparin Sodium,Porcine/Pf (Heparin Sod 5,000 Unit/0.5 ml SC SCH (15:00)
[2019-03-23] MEDS ORDERED: ANTACID SUSP 30 ML UDC (MYLANTA) PO PRN (15:15)
--- NOTE | 2019-03-23 15:26 | Physical Therapy Evaluation ---
PT Evaluation-General Medical Diagnosis Admission Date Mar 23, 2019 at 12:24 Medical Diagnosis: Subarrachnoid Hemorrhage Onset Date: Mar 23, 2019 Therapy Diagnosis Therapy Diagnosis: abnormal gait Height/Weight Height (Feet): 5 Height (Inches): 10.00 Weight (Pounds): 183 Precautions Precautions/Isolations: Standard Precautions Referral Physician: Radha Reason for Referral: Evaluation/Treatment Medical History Additional Medical History anxiety, depression Current History Pt transferred to this facility after a 3 week stay at [facility] due to a subara chnoid hemorrhage. He had a lengthy and complicated medical stay that included being ventilated and subsequent peg tube placement. He has transferred to this facility for continued medical management and skilled therapy services to return to home as before and work. Reviewed History: Yes Social History Home: Single Level Current Living Status: Friend Entry Into Home: Stairs With Railing PT Steps Into Home: 3 Prior Prior Level of Function SCALE: Activities may be completed with or without assistive devices. 5-Svpgcghhva-fisywbc completes the activity by him/herself with no assistance from a helper. 5-Set-up or Clean-up Assistance-helper sets up or cleans up; patient completes activity. Redwood assists only prior to or following the activity. 4-Supervision or Touching Assistance-helper provides verbal cues and/or touching/steadying and/or contact guard assistance as patient completes activity. Assistance may be provided throughout the activity or intermittently. 3-Partial/Moderate Assistance-helper does LESS THAN HALF the effort. Redwood lifts, holds or supports trunk or limbs, but provides less than half the effort. 2-Substantial/Maximal Assistance-helper does MORE THAN HALF the effort. Redwood lifts or holds trunk or limbs and provides more than half the effort. 2-Cmhmzneez-suvhgp does ALL the effort. Patient does none of the effort to complete the activity. Or, the assistance of 2 or more helpers is required for the patient to complete the activity. If activity was not attempted, code reason: 7-Patient Refused. 9-Not Applicable-not attempted and the patient did not perform the activity before the current illness, exacerbation or injury. 10-Not Attempted due to Environmental Limitations-(lack of equipment, weather restraints, etc.). 88-Not Attempted due to Medical Conditions or Safety Concerns. 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 PT Evaluation-Current Subjective Pt agreeable to PT. Reports he has been walking on his own at . Reports he is anxious to start therapy to improve his functional balance and activity tolerance. Pain Numeric Pain Scale: 0-No Pain Objective Patient Orientation: Person, Place, Time, Situation Attachments: PEG Tube ROM/Strength ROM Lower Extremities WNL Strength Lower Extremities WNL Integumentary/Posture Integumentary intact Bowel Incontinence: No Bladder Incontinence: No Posture normal and symmetrical Neuromuscular (Tone, Coordination, Reflexes) no noted functional deficits Sensory Vision: Functional (reports eye fatigue/achey at times. ) Hearing: Functional Hand Dominance: Right Sensation Right Lower Extremit: Intact Sensation Left Lower Extremity: Intact Transfers Roll Left to Right (QC): 6 Sit to Lying (QC): 6 Lying to Sitting/Side of Bed(Q: 6 Sit to Stand (QC): 6 Chair/Nik-ri-Odzhe Xfer(QC): 6 Car Transfer (QC): 5 Pt is indep with all functional transfers and completes safely Pt scored a 5 on toilet transfer Gait Does the Patient Walk?: Yes Mode of Locomotion: Walk Anticipated Mode of Locomotion: Walk Walk 10 feet (QC): 5 Walk 50 ft with 2 Turns(QC): 5 Walk 150 ft (QC): 5 Walking 10ft/uneven surface-QC: 5 Distance: >200 ft Gait Assistive Device: None Comments/Gait Description Patient's gait is safe and steady with a normal pattern. Wheelchair Training Does the Pt Use a Wheelchair?: No Wheel 50 ft with 2 turns (QC): 9 Wheel 150 ft (QC): 9 Type of Wheelchair: Manual Stairs 1 Step (curb) (QC): 5 4 Steps (QC): 5 12 Steps (QC): 5 Balance Sitting Static: Normal Sitting Dynamic: Normal Standing Dynamic: Fair Picking up an Object (QC): 4 Special Test Comments Pt completed the FAIR balance test and scored 46/56 Treatment Co treatment with OT due to the need of 2 skilled clinicians to complete thorough assessment; as OT addressed self care and functional needs PT addressed functional safety, static and dynamic balance in standing and with transfers as well as joint discussion on safety and optimal skills needed to return home safely. Assessment/Needs Pt presents post lengthy acute hospital stay due to a subarachnoid hemorrhage. 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 He has good potential and expect him to make excellent progress. 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 [employer] Goals Nursing Home Goals PT Supervisor [employer] Goals Time Frame: Apr 03, 2019 Roll Left & Right (QC): 6 Sit to Lying (QC): 6 Lying-Sitting on Side/Bed(QC): 6 Sit to Stand (QC): 6 Chair/Qyt-uv-Taysj Xfer(QC): 6 Toilet Transfer (QC): 6 Car Transfer (QC): 6 Does the Patient Walk: Yes Walk 10 feet (QC): 6 Walk 50ft with 2 Turns (QC): 6 Walk 150 ft (QC): 6 Walking 10ft on Uneven Surface: 6 1 Step (curb) (QC): 6 4 Steps (QC): 6 12 Steps (QC): 6 Picking up an Object (QC): 6 Does the Pt use WC or Scooter?: No Type: N/A Type: N/A PT to score 52/56 on the FAIR PT Plan Problem List Problem List: Activity Tolerance, Functional Strength, Safety, Balance, Gait, Transfer Treatment/Plan Treatment Plan: Continue Plan of Care Treatment Plan: Bed Mobility, Education, Functional Activity Karo, Functional Strength, Group Therapy, Gait, Safety, Therapeutic Exercise, Transfers Treatment Duration: Apr 03, 2019 Frequency: Modified Program (IRF) Estimated Hrs Per Day: 1.5 hours per day Patient and/or Family Agrees t: Yes Safety Risks/Education Patient Education: Safety Issues Teaching Recipient: Patient Teaching Methods: Discussion Response to Teaching: Verbalize Understanding Time/GCodes Time In: 1255 Time Out: 1305 ([id number] (co treat with OT)) Total Billed Treatment Time: 65 Total Billed Treatment visit EVM 10 Visit FA 55 (co treat with OT) TARA CARVALHO PT Mar 23, 2019 15:26 POS
--- NOTE | 2019-03-23 15:49 | Occupational Therapy Eval ---
OT Evaluation-General/PLF Medical Diagnosis Admission Date Mar 23, 2019 at 12:24 Medical Diagnosis: Subarrachnoid Hemorrhage Onset Date: Mar 01, 2019 Therapy Diagnosis Therapy Diagnosis: Weakness Height/Weight Height (Feet): 5 Height (Inches): 10.00 Weight (Pounds): 183 Precautions Precautions/Isolations: Standard Precautions Weight Bear Status Weight Bearing Restriction: Weight Bearing/Tolerated Referral Physician: Radha Referral Reason: Activity Tolerance, Self Care, Evaluation/Treatment, Strengthening/ROM Medical History Additional Medical History Anxiety, depression Current History Pt. began having a headache that progressed. Came to ER and found to have an intracranial subarachnoid hemorrhage. Reviewed History: Yes Social History Home: Single Level Current Living Status: Friend Entry Into Home: Stairs With Railing Steps Into Home: 3 ADL-Prior Level of Function SCALE: Activities may be completed with or without assistive devices. 9-Jxyfmurswz-jfknawv completes the activity by him/herself with no assistance from a helper. 5-Set-up or Clean-up Assistance-helper sets up or cleans up; patient completes activity. [place]oggon assists only prior to or following the activity. 4-Supervision or Touching Assistance-helper provides verbal cues and/or touching/steadying and/or contact guard assistance as patient completes activity. Assistance may be provided throughout the activity or intermittently. 3-Partial/Moderate Assistance-helper does LESS THAN HALF the effort. Coggon lifts, holds or supports trunk or limbs, but provides less than half the effort. 2-Substantial/Maximal Assistance-helper does MORE THAN HALF the effort. Coggon lifts or holds trunk or limbs and provides more than half the effort. 1-Emrkipefg-wcmihw does ALL the effort. Patient does none of the effort to complete the activity. Or, the assistance of 2 or more helpers is required for the patient to complete the activity. If activity was not attempted, code reason: 7-Patient Refused. 9-Not Applicable-not attempted and the patient did not perform the activity before the current illness, exacerbation or injury. 10-Not Attempted due to Environmental Limitations-(lack of equipment, weather restraints, etc.). 88-Not Attempted due to Medical Conditions or Safety Concerns. ADL PLOF Comments Pt. was independent with daily tasks. 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 Lives with a roommate but plans to stay with his ex- at discharge. 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 Appearance Pt. sitting on chair. Alert and oriented. Mental Status/Objective Patient Orientation: Person, Place, Time, Situation Current Hand Dominance: Right Upper Extremity ROM WFL Upper Extremity Strength Not tested due to fresh PEG tube placement. ADL-Treatment Eating (QC): 88 (PEG tube) Oral Hygiene (QC): 7 Shower/Bathe Self (QC): 7 Upper Body Dressing (QC): 6 (Independent while seated in chair to doff/don shirt.) Lower Body Dressing (QC): 7 On/Off Footwear (QC): 5 (Set up) Toileting Hygiene (QC): 7 Toilet Transfer (QC): 7 Pt. dressed when he arrived and declined bathing and further dressing at this time. Agreed to work with OT/PT for co-treatment due to fatigue level of transport from . OT facilitated UE ROM testing, ADL skills, and visual assessment. PT focused on transfers, balance, and functional mobility testing. Pt. verbalizes that his eyes "fatigue" easily. Does not wear glasses. Pt's ex with him and reports that she has noticed that he is quicker to anger than usual. Pt. and friend are educated about rehab goals, OT goals, and overall process including possibly of becoming over stimulated with visitors. Both verbalize understanding. Pt. has PEG tube at this time and is unable to eat by mouth. He is able to have ice chips. All needs met in room. Education OT Patient Education: Correct positioning, Modified ADL techniques, Progress toward Goal/Update tx plan, Purpose of tx/functional activities, Reviewed precautions, Rehab process, Transfer techniques Teaching Recipient: Patient Teaching Methods: Demonstration, Discussion Response to Teaching: Verbalize Understanding, Return Demonstration OT Chcf Goals Chcf Goals Time Frame: Apr 06, 2019 Eating (QC): 6 Oral Hygiene (QC): 6 Toileting Hygiene (QC): 6 Shower/Bathe Self (QC): 6 Upper Body Dressing (QC): 6 Lower Body Dressing (QC): 6 On/Off Footwear (QC): 6 Additional Goals: 1-Demonstrate ADL Tasks, 2-Verbalize Understanding, 3- ImproveStrength/Karo 1=Demonstrate adherence to instructed precautions during ADL tasks. 2=Patient will verbalize/demonstrate understanding of assistive devices/modifications for ADL. 3=Patient will improve strength/tolerance for activity to enable patient to perform ADL's. OT Education/Plan Problem List/Assessment Assessment: Decreased Activ Tolerance, Impaired I ADL's, Impaired Self-Care Skills Discharge Recommendations Plan/Recommendations: Continue POC Comment Equipment needs to be determined. OT will also complete visual assessment with goals to be determined and follow up to be completed as necessary. Treatment Plan/Plan of Care Treatment,Training & Education: Yes Patient would benefit from OT for education, treatment and training to promote independence in ADL's, mobility, safety and/or upper extremity function for ADL's. Plan of Care: ADL Retraining, Functional Mobility, UE Funct Exercise/Act Treatment Duration: Apr 06, 2019 Frequency: At least 5 of 7 days/Wk (IRF) Estimated Hrs Per Day: 1.5 hours per day Agreement: Yes Rehab Potential: Good Time/GCodes Start Time: 12:45 Stop Time: 14:00 Total Time Billed (hr/min): 65 Billed Treatment Time [id number] 1, EVL x 10minutes [id number] PT eval, no charge [id number] ADL x 20minutes, FA x 35minutes SHAYY WINKLER OT Mar 23, 2019 15:49 POS
[2019-03-23 15:53] VITALS: BP 126/85
--- NOTE | 2019-03-23 16:02 | Progress Note ---
[facility]AR[facility] 03/23/19 1602: Progress Note CC: SAH, Dysphagia HPI: 43yo male with a history of subarachnoid hemorrhage, intraventricular hemorrhage, obstructive hydrocephalous, and dysphagia. 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 He also required an external ventricular drain placement for the obstructive hydrocephalus. He had a long recovery period associated with some cognitive decline and oral dysphagia to solids and liquids with high risk for aspiration. He underwent EGD with placement of percutaneous gastrotomy tube on 03/20/19 after having failed trial of liquid diet indicated by video swallow assessment on 03/14/19. He currently reports having to clear hi s throat often, but states his pain around the G-tube is much better not requiring as much pain medication. He denies any headache, throat pain, dizziness, double vision, chest pain, trouble breathing, nausea, vomiting, diarrhea, but has positives for coughing mouth secretions stuck in his throat, some blurry vision in his peripheral visions randomly, and he denies bowel movements due to limited amount of oral food intake. He reports that he had trouble initially with bladder retention, but states this has improved. He states he was on Prozac prior to admission and would like to begin taking that for his anxiety and depression. 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[employer], that does require some multitasking, customer service, and memory in daily tasks * SLUMS: 21 (mild cognitive impairment) * Primarily appeared to be difficulty with short term memory (remembering 5 items, details of short story, etc) He does not complain about any difficulty with walking or mobility currently, but does feel shaky at times He is planning to live with his Ex- for a short period after his stay in rehab because she works director of partner marketing and would be able to help him get adjusted before returning to live with his roommate and his roommates two 10yo children as he was before the SAH His house with the roommate does have about 10 steps that would be required, but he stated he was not as concerned about the steps AMBREEN RODRIGUEZ DO 03/23/199: Supervisory-Addendum Brief Verification & Attestation Participated in pt care: history, MDM, physical Personally performed: exam, history, MDM, supervision of care Care discussed with: Medical Student Procedures: n/a Results interpretation: Verified all documentation Verification and Attestation of Medical Student E/M Service A medical student performed and documented this service in my presence. I reviewed and verified all information documented by the medical student and made modifications to such information, when appropriate. I personally performed the physical exam and medical decision making. Ambreen Rodriguez, Mar 23, 2019,21:39 [facility] Mar 23, 2019 16:02 AMBREEN MATHEWS DO Mar 23, 2019 21:39 POS
[2019-03-23 16:33] VITALS: BP 109/68
[2019-03-23] MEDS ORDERED: FLUO40CA12 PO (16:33)
[2019-03-23] MEDS: APAP 325 MG/10.15 ML LIQ (TYLENOL) UDC PO SCH ×2 (17:34→23:17)
[2019-03-23] MEDS: DOCUSATE SODIUM 10 MG/ML 10 ML UDC (COLACE) NG SCH (19:28)
[2019-03-23] MEDS: POLYETHYLENE GLYCOL 17 GM (MIRALAX) PACK PO SCH (19:28)
[2019-03-23] MEDS: SENNA W/DOCUSATE (SENOKOT S) TABLET PO SCH (19:28)
[2019-03-23] MEDS ORDERED: METHOCARBAMOL 500 MG PO SCH (21:00)
[2019-03-23] MEDS ORDERED: NON-FORMULARY MEDICATION 1 EA EA (Melatonin 6 MG) PO SCH (21:00)
[2019-03-23] MEDS ORDERED: LEVETIRACETAM 1000 MG NG SCH (21:00)
--- NOTE | 2019-03-23 21:05 | NUR ---
Pt kemar tube feeding with no c/o's nausea and only 10cc residual. Rate increased to 40cc/hr.
[2019-03-23] MEDS: METHOCARBAMOL 500 MG (ROBAXIN) TABLET PO SCH (21:12)
[2019-03-23] MEDS: MELATONIN 3 MG TABLET PO SCH (21:12)
[2019-03-23] MEDS: LEVETIRACETAM 500 MG/ 5 ML UDC ORAL SOLN (KEPPRA) NG SCH (21:12)
--- NOTE | 2019-03-23 21:46 | PM&R Post Admission Assessment ---
PM&R HP Date of Visit: Mar 23, 2019 Time of Visit: 12:45 History of Present Illness Chief complaint: Subarachnoid hemorrhage debility HPI: This is a 43yoWM clinic Pt of [facility] who presented following a hospital stay for subarachnoid hemorrhage with subsequent cognitive deficits along with ADL deficits. Pt does have a supportive family and is currently in need of aggressive therapies in order to return home. 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 He is previously ambulating without assistive devices and did not require any assistance with ADLs. Per medical student Marek Martin,, MSIII CC: SAH, Dysphagia HPI: 43yo male with a history of subarachnoid hemorrhage, intraventricular hemorrhage, obstructive hydrocephalous, and dysphagia. 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 He also required an external ventricular drain placement for the obstructive hydrocephalus. He had a long recovery period associated with some cognitive decline and oral dysphagia to solids and liquids with high risk for aspiration. He underwent EGD with placement of percutaneous gastrotomy tube on 03/20/19 after having failed trial of liquid diet indicated by video swallow assessment on 03/14/19. He currently reports having to clear his throat often, but states his pain around the G-tube is much better not requiring as much pain medication. He denies any headache, throat pain, dizziness, double vision, chest pain, trouble breathing, nausea, vomiting, diarrhea, but has positives for coughing mouth secretions stuck in his throat, some blurry vision in his peripheral visions randomly, and he denies bowel movements due to limited amount of oral food intake. He reports that he had trouble initially with bladder retention, but states this has improved. He states he was on Prozac prior to admission and would like to begin taking that for his anxiety and depression. 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, that does require some multitasking, customer service, and memory in daily tasks * SLUMS: 21 (mild cognitive impairment) * Primarily appeared to be difficulty with short term memory (remembering 5 items, details of short story, etc) He does not complain about any difficulty with walking or mobility currently, but does feel shaky at times He is planning to live with his Ex- for a short period after his stay in rehab because she works plastic parts designer and would be able to help him get adjusted before returning to live with his roommate and his roommates two 10yo children as he was before the [facility] His house with the roommate does have about 10 steps that would be required, but he stated he was not as concerned about the steps Past Qaxpspk-Vmzqbc-Zafunv Hx Past Med/Social Hx: Reviewed Nursing Past Med/Soc Hx, Reviewed and Corrections made Patient Social History Marrital Status: Employed/Student: employed Alcohol Beverage of Choice: Beer Smoking Status: Former Smoker Type Used: Cigarettes Recent Foreign Travel: No Contact w/other who traveled: No Recent Hopitalizations: Yes Recent Infectious Disease Expo: No Immunizations Up To Date Date of Pneumonia Vaccine: Mar 03, 2018 Past Medical History Neurological: Stroke Psychosocial: Depression History of Blood Disorders: No Prior Level of Function Bed Mobility: 6 Transfers: 6 Gait: 6 Stairs: 6 Wheelchair Mobility: 9 Indoor Mobility (Ambulation): Independent Stairs: Independent Self Care: Independent Functional Cognition: Independent 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 Drive Self: Yes Current Level of Fuctioning Roll Left to Right: 6 Sit to Lyin Lying to Sitting/Side of Bed: 6 Sit to Stand: 6 Chair/Vby-kb-Mmqdm Xfer: 6 Car Transfer: 5 Does the Patient Walk: Yes Mode of Locomotion: Walk Anticipated Mode of Locomotion: Walk Walk 10 feet: 5 Walk 50 ft with 2 Turns: 5 Walk 150 ft: 5 Walking 10ft on uneven surface: 5 Gait Assistive Device: None Does the Pt Use a Wheelchair: No Wheel 50 ft with 2 turns: 9 Wheel 150 ft: 9 Type of Wheelchair: Manual 1 Step (curb): 5 4 Steps: 5 12 Steps: 5 Picking up an Object: 4 Eatin (PEG tube) Oral Hygiene: 7 Shower/Bathe Self: 7 Upper Body Dressin (Independent while seated in chair to doff/don shirt.) Lower Body Dressin On/Off Footwear: 5 (Set up) Toileting Hygiene: 7 Toilet Transfer: 7 PM&R Allergy/Meds/Data Review Allergies Coded Allergies: No Known Drug Allergies (Unverified , 11/10/16) Home Medications Scheduled Fluoxetine HCl (Prozac), 40 MG PO DAILY, (Reported) Discontinued Medications Fluoxetine HCl (Fluoxetine HCl), (Reported) Discontinued Reason: No Longer Taking Current Medications Current Medications Reviewed Review of Systems Constitutional: see HPI, malaise, weakness EENTM: throat pain, throat swelling Respiratory: no symptoms reported Cardiovascular: no symptoms reported Gastrointestinal: no symptoms reported Genitourinary: no symptoms reported Musculoskeletal: no symptoms reported Skin: no symptoms reported Psychiatric/Neurological: Anxiety, Depressed, Emotional Problems, Headache, Numbness, Paresthesia, Tingling, Tremors, Weakness All Other Systems Reviewed Negative Unless Noted: Yes Physical Exam Physical Exam Vital Signs Vital Signs - First Documented 03/23/19 12:50 Temp 36.6 Pulse 74 Resp 18 B/P (MAP) 126/85 (99) Pulse Ox 100 O2 Delivery Room Air Capillary Refill : Height, Weight, BMI Height: 5'10.00" Weight: 183lbs. oz. 83.748814ix; 28.97 BMI Method:Stated General Appearance: No Apparent Distress, WD/WN Eyes: Bilateral Eye Normal Inspection, Bilateral Eye PERRL HEENT: PERRL/EOMI, Normal ENT Inspection, Pharynx Normal Neck: Full Range of Motion, Normal Inspection, Non Tender, Supple, Carotid Bruit Respiratory: Chest Non Tender, Lungs Clear, Normal Breath Sounds, No Accessory Muscle Use, No Respiratory Distress Cardiovascular: Regular Rate, Rhythm, No Edema, No Gallop, No JVD, No Murmur, Normal Peripheral Pulses Gastrointestinal: Normal Bowel Sounds, No Organomegaly, No Pulsatile Mass, Non Tender, Soft Back: Normal Inspection, No CVA Tenderness, No Vertebral Tenderness Extremity: Normal Capillary Refill, Normal Inspection, Normal Range of Motion, Non Tender, No Calf Tenderness, No Pedal Edema Neurologic/Psychiatric: Alert, Oriented x3, No Motor/Sensory Deficits, fish icer II- XII Norm as Tested, Depressed Affect, Motor Weakness (fine motor skills), Other (memory loss noted) Skin: Normal Color, Warm/Dry Lymphatic: No Adenopathy PM&R Medical Assessment & Plan REHAB/MEDICAL ASSESSMENT AND PLAN: REHAB IMPAIRMENT GROUP: SAH ETIOLOGIC DIAGNOSIS: SAH The comorbidities that impact the patients function and/or functional outcome by: PEG due to dysphagia and aspiration risk, memory loss, depression REHAB PLAN: The patient is being admitted to our comprehensive inpatient rehabilitation facility and can tolerate the intensity of service consisting of at least: 180 minutes of therapy a day, 5 out of 7 days a week Rehab treatment will consist of: PT/OT will focus on increasing independence with focused therapy to improve ability to live independently The patient/family has a good understanding of our discharge process and will benefit from an interdisciplinary inpatient rehabilitation program. The patient has potential to make improvement and is in need of at least two of the following multidisciplinary therapies including but not limited to physical, occupational, speech, and prosthetics and orthotics. Additionally the patient will need services from respiratory, nutritional services, wound care, psychology, etc. (Customize this to each patient). Given the patients complex condition and risk of further medical complications, rehabilitation services cannot be safely or effectively provided at a lower level of care such as a assisted facility. BARRIERS TO DISCHARGE: Dysphagia, ex- will help ESTIMATED LOS: 10 days DISPOSITION: Home RELEVANT CHANGES SINCE PREADMISSION SCREENING: I have compared the patients medical and functional status at the time of the preadmission screening and there are: no changes PROGNOSIS: Good REHABILITATION GOALS: 1. PT/OT will help regain independence with focused therapy along with ST to help cognition and dysphagia All the above goals were reviewed with the patient and he/she is in agreement. By signing this document, I acknowledge that I have personally performed a full physical examination on this patient within 24 hours of admission to this inpatient rehabilitation facility and have determined the patient to be able to tolerate the above course of treatment at an intensive level for a reasonable period of time. I will be completing a detailed individualized Plan of Care for this patient by day #4 of the patients stay based upon the Preadmission Screen, the Post-Admission Evaluation, and the therapy evaluations. 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
--- NOTE | 2019-03-23 21:58 | Individualized Plan of Care ---
Individualized Plan of Care Rehab Nursing IPOC Order Admission Date Mar 23, 2019 at 12:24 Current Orders Orders Admission Order(Inpt,Obs,Sdc) (03/23/19 10:30) Vital Signs: Per Unit Policy ( 08,16,00 (03/23/19 10:30) Roney Spaulding (03/23/19 10:30) Sequential Compression Device Q4H (03/23/19 10:30) Board Liner Operator-Inpt Rehab Con (03/23/19 10:30) Rehab Nursing Orders-Ipoc (03/23/19 10:30) Physical Therapy Rehab Orders (03/23/19 10:30) Occupational Therapy Rehab Ord (03/23/19 10:30) Speech Therapy Rehab Orders (03/23/19 10:30) Cbc With Automated Diff (03/24/19 06:00) Comprehensive Metabolic Panel (03/24/19 06:00) Intake & Output 06,14,22 (03/23/19 10:30) Precautions (Aru) (03/23/19 10:30) Weekly Weight WEEK (03/23/19 10:30) Rehab-Intensity Of Therapy (03/23/19 10:30) Initiate Admission Nursing Pro .admission (03/23/19 10:30) Alprazolam Tablet (Xanax Tablet) (03/23/19 10:30) Calcium Carbonate Chew Tablet (Antacid C (03/23/19 10:30) Diphenhydramine Tablet (Benadryl Tablet) (03/23/19 10:30) Docusate Sodium Capsule (Colace Capsule) (03/23/19 10:30) Bisacodyl Suppository (Dulcolax Supposit (03/23/19 10:30) Lactulose Oral Solution (Enulose Oral So (03/23/19 10:30) Na Phos/Na Biphos Enema (Fleet Enema [place] (03/23/19 10:30) Guaifenesin/Codeine Syrup (Robitussin Ac (03/23/19 10:30) Loperamide Tablet (Imodium Tablet) (03/23/19 10:30) Melatonin Tablet (Melatonin Tablet) (03/23/19 10:30) Polyethylene Glycol Powder Pkt (Miralax (03/23/19 21:00) Ondansetron Oral Dissolve Tab (Zofran (03/23/19 10:30) Senna S Tablet (Senokot S Tablet) (03/23/19 21:00) Code/Resuscitation (03/23/19 10:30) Initiate Admission Nursing Pro .admission (03/23/19 10:30) Ambulate 08,12,20 (03/23/19 13:09) Follow-Up Appointment (03/23/19 13:40) Nothing By Mouth (03/23/19 Lunch) Patient Visit (03/23/19 ) Speech Sound Lang Comp (03/23/19 ) Tube Feeding (Diet) (03/23/19 13:52) Docusate Sodium Oral Solution (Colace Or (03/23/19 21:00) Doxazosin Tablet (Cardura Tablet) (03/24/19 09:00) Folic Acid Tablet (Folic Acid Tablet) (03/24/19 09:00) Guaifenesin Sf Syrup (Robitussin Sf Syru (03/23/19 15:00) Meclizine Tablet (Antivert Tablet) (03/23/19 15:00) Oxycodone Immediate Rel Tablet (Oxyir Ta (03/23/19 15:00) (Nf) Acetaminophen (03/23/19 15:00) (Nf) Fluoxetine Hcl (Prozac) (03/24/19 09:00) (Nf) Heparin Sodium,Porcine/Pf (Heparin (03/23/19 15:00) (Nf) Levetiracetam (Keppra) (03/23/19 21:00) (Nf) Mag Hydrox/Aluminum Hyd/Simeth (Maa (03/23/19 15:00) (Nf) Melatonin (03/23/19 21:00) (Nf) Methocarbamol (03/23/19 21:00) (Nf) [Pantoprazole 2mg/Ml] (03/24/19 09:00) Melatonin Tablet (Melatonin Tablet) (03/23/19 21:00) Fluoxetine Capsule (Prozac Capsule) (03/24/19 09:00) Levetiracetam Oral Solution (Keppra Oral (03/23/19 21:00) Methocarbamol Tablet (Robaxin Tablet) (03/23/19 21:00) Heparin Injection (Heparin Injection) (03/23/19 15:00) Antacid Suspension (Mylanta Suspension (03/23/19 15:15) Water, Sterile For Irrigation (Sterile W (03/24/19 07:00) Patient Visit (03/23/19 ) Pt Eval Moderate Complexity (03/23/19 ) Functional Activities, Ea 15 (03/23/19 ) Acetaminophen Oral Solution (Tylenol Ora (03/23/19 18:00) Beneprotein (03/24/19 Dinner) (Nf) Fluoxetine Hcl (Prozac) (03/24/19 09:00) Rehab Nursing Orders: Ongoing Assess. of Cognitive Status, Ongoing Assess. of Function Status, Bladder Training, Bowel Management, Disease Management & Educaiton, DVT Prophylaxis, Fall Prevention, Fluid/Electrolyte/Nutrition Mgmt, Infection Prevention, Medication Management & Education, Management of Risks & Complications, Nutrition Management, Pain Management, Patient/Family Support, Safety Management, Swallow Precautions Intensity of Therapy to be met Patient to be seen: Min.3h per day/5 of 7d PT IPOC Problem List: Activity Tolerance, Functional Strength, Safety, Balance, Gait, Transfer Treatment Plan: Continue Plan of Care Bed Mobility, Education, Functional Activity [place], Functional Strength, Group Therapy, Gait, Safety, Therapeutic Exercise, Transfers Treatment Duration: Apr 03, 2019 Frequency: Modified Program (IRF) Estimated Hrs Per Day: 1.5 hours per day OT IPOC Problems: Decreased Activ Tolerance, Impaired I ADL's, Impaired Self-Care Skills OT Treatment, Training and Edu: Yes Plan of Care: ADL Retraining, Functional Mobility, UE Funct Exercise/Act Treatment Duration: Apr 06, 2019 Frequency: At least 5 of 7 days/Wk (IRF) Estimated Hrs Per Day: 1.[address] IPOC Speech Therapy Treatment Plan: Continue Plan of Care Treatment Duration: Mar 31, 2019 Frequency: 5 times per week Estimated Hrs Per Day: .5 hour per day Board Liner Operator/Case Mgmt Board Liner Operator/Case Managemen: Discharge Planning Dietitian/Game Trapper Dietitian/Game Trapper to monitor nutritional status and make changes and/or recommendations as needed and work with speech pathology on dietary upgrades as the occur. Physician IPOC Medical Issues being managed closely and that require the 24 hour availability of a physician: Patient with severe dysphagia with aspiration risk and in need of slow titration of tube feedings to maintain tolerability will require close observation Medical Issues: Bowel/Bladder Function, DVT Prophylaxis, Falls Precautions, Fluid/Electrolyte/Nutrition Balance, Infection Protection, Pain Management, Swallowing Precautions Brief Synthesis of Preadmission Screen, Post-Admission Evaluation, and Therapy Evaluations: PT will help maintain strength and ambulation OT will help provide ADL skills to compensate for cognitive deficit from subarachnoid hemorrhage Speech therapy will focus on swallowing techniques in order to regain the ability to swallow nutrition Medical Prognosis: Good Anticipated Length of Stay: 10 days MERRY RODRIGUEZ DO Mar 23, 2019 21:58 POS
--- NOTE | 2019-03-24 01:50 | NUR ---
Pt currently c/o's nausea. TF residual 100cc. Rate decreased back to 30cc/hr. Zofran given at this time also.
[2019-03-24 05:55] VITALS: BP 96/65
[2019-03-24] MEDS: APAP 325 MG/10.15 ML LIQ (TYLENOL) UDC PO SCH ×4 (06:01→23:02)
[2019-03-24 06:10] LABS: BASOPHILS % (AUTO) 0 % (0-10); EOSINOPHILS # (AUTO) 0.2 10^3/uL (0.0-0.3); EOSINOPHILS % (AUTO) 2 % (0-10); HEMATOCRIT 36 % (40-54); HEMOGLOBIN 11.7 G/DL (13.3-17.7); LYMPHOCYTES # (AUTO) 1.8 X 10^3 (1.0-4.0); LYMPHOCYTES % (AUTO) 24 % (12-44); MEAN CORPUSCULAR HGB CONC 33 G/DL (32-36); MEAN CORPUSCULAR VOLUME 94 FL (80-99); MEAN PLATELET VOLUME 11.4 FL (7.4-10.4); MONOCYTES # (AUTO) 0.8 X 10^3 (0.0-1.0); MONOCYTES % (AUTO) 11 % (0-12); NEUTROPHILS # (AUTO) 4.7 X 10^3 (1.8-7.8); NEUTROPHILS % (AUTO) 63 % (42-75); PLATELET COUNT 232 10^3/uL (130-400); RED CELL DISTRIBUTION WIDTH 12.8 % (10.0-14.5); WHITE BLOOD COUNT 7.5 10^3/uL (4.3-11.0)
[2019-03-24 06:14] LABS: MEAN CORPUSCULAR HEMOGLOBIN 30 PG (25-34)
--- NOTE | 2019-03-24 06:15 | NUR ---
Pt kemar tube feeding at 30cc/hr with residual of 50cc. Rate increased to 40cc/hr. Cont to monitor.
[2019-03-24] MEDS: PANTOPRAZOLE 2 MG/ML LIQUID 200 ML (PROTONIX) NG SCH ×3 (06:25)
[2019-03-24 06:37] LABS: ALANINE AMINOTRANSFERASE 86 U/L (0-55); ALBUMIN 3.6 GM/DL (3.2-4.5); ALKALINE PHOSPHATASE 106 U/L (40-136); BILIRUBIN,TOTAL 0.2 MG/DL (0.1-1.0); BUN/CREATININE RATIO 11; CALCIUM 9.4 MG/DL (8.5-10.1); CARBON DIOXIDE 28 MMOL/L (21-32); CHLORIDE 106 MMOL/L (98-107); CREATININE SERUM 0.73 MG/DL (0.60-1.30); GFR ESTIMATED > 60; GLUCOSE 122 MG/DL (70-105); POTASSIUM 3.7 MMOL/L (3.6-5.0); SODIUM 143 MMOL/L (135-145); TOTAL PROTEIN 6.1 GM/DL (6.4-8.2)
[2019-03-24] MEDS ORDERED: PANTOPRAZOLE NG SCH (09:00)
[2019-03-24] MEDS ORDERED: NON-FORMULARY MEDICATION 1 EA EA (Fluoxetine HCl (Prozac) 40 MG) PO SCH (09:00)
[2019-03-24] MEDS ORDERED: NON-FORMULARY MEDICATION 1 EA EA (Fluoxetine HCl (Prozac) 20 MG) PO SCH (09:00)
[2019-03-24 09:22] VITALS: BP 122/74
[2019-03-24] MEDS: doxAzosin 4 MG (CARDURA) TAB NG SCH (09:24)
[2019-03-24] MEDS: FLUoxetine HCL 20 MG (PROzac) CAP PO SCH (09:25)
[2019-03-24] MEDS: FOLIC ACID 1 MG TAB PO SCH (09:25)
[2019-03-24] MEDS: POLYETHYLENE GLYCOL 17 GM (MIRALAX) PACK PO SCH ×2 (09:25→21:17)
[2019-03-24] MEDS: METHOCARBAMOL 500 MG (ROBAXIN) TABLET PO SCH ×2 (09:25→21:17)
[2019-03-24] MEDS: LEVETIRACETAM 500 MG/ 5 ML UDC ORAL SOLN (KEPPRA) NG SCH ×2 (09:25→21:17)
[2019-03-24] MEDS: SENNA W/DOCUSATE (SENOKOT S) TABLET PO SCH ×2 (09:25→10:31)
[2019-03-24] MEDS: DOCUSATE SODIUM 10 MG/ML 10 ML UDC (COLACE) NG SCH ×2 (09:26→10:31)
--- NOTE | 2019-03-24 10:15 | PM&R Progress Note ---
Subjective HPI/CC On Admission Date Seen by Provider: Mar 24, 2019 Time Seen by Provider: 08:30 Subjective/Events-last exam Pt had a pretty good night Will set up a suction device because the saliva bag appears to be unsanitary Swallowing is a major issues Zofran was given at 2 am Tube feedings are at 30ccs now due to 100cc residual last night, now its going up to 40 and goal is 50 Last BM was 03/24/19 Conferred with RN Reviewed therapy notes Checked meds and labs Review of Systems General: Fatigue HEENT: Dysphasia Neurological: Confusion Objective Exam Vital Signs Vital Signs Date Time Temp Pulse Resp B/P (MAP) Pulse Ox O2 Delivery O2 Flow Rate FiO2 03/24/19 16:32 36.6 70 16 101/60 (74) 97 Room Air Capillary Refill : General Appearance: No Apparent Distress, WD/WN HEENT: PERRL/EOMI, Normal ENT Inspection, Pharynx Normal Neck: Full Range of Motion, Normal Inspection, Non Tender, Supple, Carotid Bruit Respiratory: Chest Non Tender, Lungs Clear, Normal Breath Sounds, No Accessory Muscle Use, No Respiratory Distress Cardiovascular: Regular Rate, Rhythm, No Edema, No Gallop, No JVD, No Murmur, Normal Peripheral Pulses Gastrointestinal: Normal Bowel Sounds, No Organomegaly, No Pulsatile Mass, Non Tender, Soft Back: Normal Inspection, No CVA Tenderness, No Vertebral Tenderness Extremity: Normal Capillary Refill, Normal Inspection, Normal Range of Motion, Non Tender, No Calf Tenderness, No Pedal Edema Neurologic/Psychiatric: Alert, Oriented x3, No Motor/Sensory Deficits, real estate accountant II- XII Norm as Tested, Depressed Affect, Motor Weakness (fine motor skills), Other (memory loss noted) Skin: Normal Color, Warm/Dry Lymphatic: No Adenopathy Results/Procedures Lab Laboratory Tests 03/24/19 05:40 Patient resulted labs reviewed. FIM Transfers Therapy Code Descriptions/Definitions Functional [place] Measure: 0=Not Assessed/NA 4=Minimal Assistance 1=Total Assistance 5=Supervision or Setup 2=Maximal Assistance 6=Modified [place] 3=Moderate Assistance 7=Complete IndependenceSCALE: Activities may be completed with or without assistive devices. 5-Fxnnhpaqqw-vgectkl completes the activity by him/herself with no assistance from a helper. 5-Set-up or Clean-up Assistance-helper sets up or cleans up; patient completes activity. [place] assists only prior to or following the activity. 4-Supervision or Touching Assistance-helper provides verbal cues and/or touching/steadying and/or contact guard assistance as patient completes activity. Assistance may be provided throughout the activity or intermittently. 3-Partial/Moderate Assistance-helper does LESS THAN HALF the effort. [place] lifts, holds or supports trunk or limbs, but provides less than half the effort. 2-Substantial/Maximal Assistance-helper does MORE THAN HALF the effort. [place] lifts or holds trunk or limbs and provides more than half the effort. 9-Smawugsba-myqxgb does ALL the effort. Patient does none of the effort to complete the activity. Or, the assistance of 2 or more helpers is required for the patient to complete the activity. If activity was not attempted, code reason: 7-Patient Refused. 9-Not Applicable-not attempted and the patient did not perform the activity before the current illness, exacerbation or injury. 10-Not Attempted due to Environmental Limitations-(lack of equipment, weather restraints, etc.). 88-Not Attempted due to Medical Conditions or Safety Concerns. Roll Left to Right (QC): 6 Sit to Lying (QC): 6 Sit to Stand (QC): 6 Chair/Hso-rt-Qgilm Xfer(QC): 6 Car Transfer (QC): 5 Gait Training Does the Patient Walk?: Yes Walk 10 feet (QC): 5 Walk 50 ft with 2 Turns(QC): 5 Walk 150 ft (QC): 5 Walking 10ft/uneven surface-QC: 5 Gait Assistive Device: None Wheelchair Training Does the Pt Use a Wheelchair?: No Wheel 50 ft with 2 turns (QC): 9 Wheel 150 ft (QC): 9 Type of Wheelchair: Manual Stair Training 1 Step (curb) (QC): 5 4 Steps (QC): 5 12 Steps (QC): 5 Balance Picking up an Object (QC): 4 ADL-Treatment Eating (QC): 88 (PEG tube) Oral Hygiene (QC): 7 Shower/Bathe Self (QC): 7 Upper Body Dressing (QC): 6 (Independent while seated in chair to doff/don dexter t.) Lower Body Dressing (QC): 7 On/Off Footwear (QC): 5 (Set up) Toileting Hygiene (QC): 7 Toilet Transfer (QC): 7 Assessment/Plan Assessment and Plan Assess & Plan/Chief Complaint Assessment: SAH Dysphagia Aspiration risk PEG Depression Former smoker Plan: IRF protocol ST Suction device (1) Nontraumatic subarachnoid hemorrhage, unspecified (2) S/P percutaneous endoscopic gastrostomy (PEG) tube placement (3) Dysphagia (4) At risk for aspiration (5) 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
--- NOTE | 2019-03-24 11:45 | Physical Therapy Daily Note ---
PT Daily Note-Current Subjective pt in recliner with ex , ex father in-law, and daughter and agrees to therapy. Pt denies pain at this time. Appearance pt in recliner with family still present. call light, room phone, tray table in reach with all needs met at this time. Mental Status Patient Orientation: Person, Place, Time, Situation Attachments: PEG Tube RN disconnected tube feed for duration of therapy. Transfers SCALE: Activities may be completed with or without assistive devices. 4-Uyoebabfuu-tfzsvfc completes the activity by him/herself with no assistance from a helper. 5-Set-up or Clean-up Assistance-helper sets up or cleans up; patient completes activity. [place] assists only prior to or following the activity. 4-Supervision or Touching Assistance-helper provides verbal cues and/or touching/steadying and/or contact guard assistance as patient completes activity. Assistance may be provided throughout the activity or intermittently. 3-Partial/Moderate Assistance-helper does LESS THAN HALF the effort. [place] lifts, holds or supports trunk or limbs, but provides less than half the effort. 2-Substantial/Maximal Assistance-helper does MORE THAN HALF the effort. [place] lifts or holds trunk or limbs and provides more than half the effort. 1-Gzkvgspkq-rywsae does ALL the effort. Patient does none of the effort to complete the activity. Or, the assistance of 2 or more helpers is required for the patient to complete the activity. If activity was not attempted, code reason: 7-Patient Refused. 9-Not Applicable-not attempted and the patient did not perform the activity before the current illness, exacerbation or injury. 10-Not Attempted due to Environmental Limitations-(lack of equipment, weather restraints, etc.). 88-Not Attempted due to Medical Conditions or Safety Concerns. Sit to Stand (QC): 6 Gait Training Does the Patient Walk?: Yes Distance: 1200' Walk 10 feet (QC): 6 Walk 50 ft with 2 Turns(QC): 6 Walk 150 ft (QC): 6 Gait Assistive Device: None Wheelchair Training Does the Pt Use a Wheelchair?: No Exercises Standing: Step-ups (onto aerex) Standing Reps: 20 NuStep Minutes: 10 NuStep Workload: 4 Neuromuscular For NMR and balance training, pt stood on Aerex balancing for 30 seconds with feet apart, then eyes closed, then feet together, and then eyes closed. with ankle strategy but no LOB. Pt stood on Aerex and played catch with daughter for 3 minutes for each sets with: feet apart, then feet close, then feet close and throwing back over head. Treatments pt performed skilled ambulation training, transfer training, balance training, and education. Assessment Current Status: Good Progress Pt demonstrates high use of ankle strategy when challenging balance with eyes closed. Pt choosing safety by letting balls pass him instead of reaching too far and putting himself in unsafe positions. Pt has once instance of coughing up mucus and needing to spit it out. PT Short Term Goals Short Term Goals Time Frame: Mar 27, 2019 Walk 150 feet: 5 12 steps: 5 PT Skilled Nursing Goals Wire Wrapper Machine Operator Goals PT Skilled Nursing Goals Time Frame: Apr 03, 2019 Roll Left & Right (QC): 6 Sit to Lying (QC): 6 Lying-Sitting on Side/Bed(QC): 6 Sit to Stand (QC): 6 Chair/Akb-fu-Lfghe Xfer(QC): 6 Toilet Transfer (QC): 6 Car Transfer (QC): 6 Does the Patient Walk: Yes Walk 10 feet (QC): 6 Walk 50ft with 2 Turns (QC): 6 Walk 150 ft (QC): 6 Walking 10ft on Uneven Surface: 6 1 Step (curb) (QC): 6 4 Steps (QC): 6 12 Steps (QC): 6 Picking up an Object (QC): 6 Does the Pt use WC or Scooter?: No Type: N/A Type: N/A PT Plan Problem List Problem List: Activity Tolerance, Functional Strength, Safety, Balance, Gait Treatment/Plan Treatment Plan: Continue Plan of Care Treatment Plan: Bed Mobility, Education, Functional Activity Karo, Functional Strength, Group Therapy, Gait, Safety, Therapeutic Exercise, Transfers Treatment Duration: Apr 03, 2019 Frequency: Modified Program (IRF) Estimated Hrs Per Day: 1.5 hours per day Patient and/or Family Agrees t: Yes Safety Risks/Education Patient Education: Gait Training, Transfer Techniques, Correct Positioning, Safety Issues Teaching Recipient: Patient Teaching Methods: Demonstration, Discussion Response to Teaching: Return Demonstration, Reinforcement Needed Time/GCodes Time In: 1100 Time Out: 1200 Total Billed Treatment Time: 60 Total Billed Treatment 1 visit GT 15' FA 45' ADILENE YU PT Mar 24, 2019 11:45 POS
--- NOTE | 2019-03-24 13:01 | Occupational Ther Daily Note ---
OT Current Status-Daily Note Subjective Pt in bed, states he is "exhausted". Agrees to therapy. Mental Status/Objective Attachments: PEG Tube ADL-Treatment Pt supine to sit without assist. Agrees to shower this morning. Sit to stand without assist. Pt ambulated to restroom without assist. Transferred to toilet and completed toileting independently. RN present and disconnected tube feeding for shower. Pt gathered clothing and performed gait to shower room without LOB. Transfer to shower chair without assist. Pt doffed clothing independently. Pt c ompleted all bathing tasks after set up. Increased time for shower. Don pullover shirt without assist. Pt donned underwear, pants, and slip on shoes without assist. Pt returned to room and completed oral care without assist. Pt transferred to chair, sitting with needs met after session. Therapy Code Descriptions/Definitions Functional [place] Measure: 0=Not Assessed/NA 4=Minimal Assistance 1=Total Assistance 5=Supervision or Setup 2=Maximal Assistance 6=Modified [place] 3=Moderate Assistance 7=Complete IndependenceSCALE: Activities may be completed with or without assistive devices. 6-Qcishrcjqb-fozgkbv completes the activity by him/herself with no assistance from a helper. 5-Set-up or Clean-up Assistance-helper sets up or cleans up; patient completes activity. [place] assists only prior to or following the activity. 4-Supervision or Touching Assistance-helper provides verbal cues and/or touching /steadying and/or contact guard assistance as patient completes activity. Assistance may be provided throughout the activity or intermittently. 3-Partial/Moderate Assistance-helper does LESS THAN HALF the effort. [place] lifts, holds or supports trunk or limbs, but provides less than half the effort. 2-Substantial/Maximal Assistance-helper does MORE THAN HALF the effort. [place] lifts or holds trunk or limbs and provides more than half the effort. 3-Qpqakjztq-inzqzz does ALL the effort. Patient does none of the effort to complete the activity. Or, the assistance of 2 or more helpers is required for the patient to complete the activity. If activity was not attempted, code reason: 7-Patient Refused. 9-Not Applicable-not attempted and the patient did not perform the activity before the current illness, exacerbation or injury. 10-Not Attempted due to Environmental Limitations-(lack of equipment, weather restraints, etc.). 88-Not Attempted due to Medical Conditions or Safety Concerns. Oral Hygiene (QC): 6 Shower/Bathe Self (QC): 5 (set up) Upper Body Dressing (QC): 6 Lower Body Dressing (QC): 6 (Footwear QC:6) Toileting Hygiene (QC): 6 Toilet Transfer (QC): 6 OT Turbine Room Attendant Goals Senior Care Goals Time Frame: Apr 06, 2019 Eating (QC): 6 Oral Hygiene (QC): 6 Toileting Hygiene (QC): 6 Shower/Bathe Self (QC): 6 Upper Body Dressing (QC): 6 Lower Body Dressing (QC): 6 On/Off Footwear (QC): 6 Additional Goals: 1-Demonstrate ADL Tasks, 2-Verbalize Understanding, 3- ImproveStrength/Karo 1=Demonstrate adherence to instructed precautions during ADL tasks. 2=Patient will verbalize/demonstrate understanding of assistive devices/modifications for ADL. 3=Patient will improve strength/tolerance for activity to enable patient to perform ADL's. OT Education/Plan Discharge Recommendations Plan/Recommendations: Continue POC Treatment Plan/Plan of Care Patient would benefit from OT for education, treatment and training to promote independence in ADL's, mobility, safety and/or upper extremity function for ADL's. Plan of Care: ADL Retraining, Functional Mobility, UE Funct Exercise/Act Treatment Duration: Apr 06, 2019 Frequency: At least 5 of 7 days/Wk (IRF) Estimated Hrs Per Day: 1.5 hours per day Agreement: Yes Rehab Potential: Good Time/GCodes Start Time: 09:00 Stop Time: 10:15 Total Time Billed (hr/min): 75 Billed Treatment Time 1 visit, ADLx5(75minutes) SANNA BATES OT Mar 24, 2019 13:01 POS
--- NOTE | 2019-03-24 14:14 | Speech Therapy Daily Note ---
Speech Daily Progress Note Subjective Date Seen by Provider: Mar 24, 2019 Time Seen by Provider: 00:30 Patient was watching a movie on his computer with his ex present when I entered his room. Objective Patient completed memory tasks at 80% with 20% verbal cues. Assessment Assessment Current Status: Good Progress Treatment Plan Continue Plan of Care Speech Short Term Goals Short Term Goals Short Term Goals 1) The patient will complete memory tasks related to his daily needs at 90% or greater. 2) The patient will complete safety awareness tasks related to his daily needs at 90% or greater. 3) The patient will complete problem solving tasks related to his daily needs at 90% or greater. Speech Residential Goals Instrument Maintenance Supervisor Goals The patient will improve cognitive-communication necessary for safety and daily living tasks with minimal assist. Speech-Plan Patient/Family Goals Patient/Family Goals: Patient plans on moving in with his ex upon rehab discharge. Treatment Plan Speech Therapy Treatment Plan: Continue Plan of Care The patient and ex were educated on his MBS we will be scheduling prior to his discharge. Treatment Duration: Mar 31, 2019 Frequency: 5 times per week Estimated Hrs Per Day: .5 hour per day Rehab Potential: Good Barriers to Learning: Patient has mild cognitive deficits. Pt/Family Agrees to Plan: Yes Safety Risks/Education Teaching Recipient: Patient, Friend Teaching Methods: Discussion Response to Teaching: Verbalize Understanding Education Topics Provided: Continued safety with intake of ice chips and using the tooth sponge for oral care. Time Speech Therapy Time In: 13:30 Speech Therapy Time Out: 14:00 Total Billed Time: 30 Billed Treatment Time [address] Mar 24, 2019 14:14 POS
--- NOTE | 2019-03-24 14:37 | NUR ---
RD ASSESSMENT IMPRESSION: Pt was awake and pleasant during nutrition assessment. Note pt PMH of SAH and dysphagia, per chart review. Note pt currently TF order of Jevity 1.5 at goal rate of 55 ml/hr. Pt currently at 40 ml/hr and tolerating it well. Pt states some recent issues with n/v over the last few weeks, and had a recent episode of diarrhea. Pt states last BM was 2 days ago. Note pt currently on bowel regimen of miralax BID; senna BID; colace BID; and bisacodyl PRN, per chart review. Pt states he feels his swallow function returning and states he tolerates ice chips. INTERVENTION: Continue with current TF order of Jevity 1.5 at goal rate of 55 ml/hr. Continue increasing by 10 ml/hr as tolerated. Will continue to follow and reassess as pt needs and status change. Ric Gregg, MS, RD, LD
--- NOTE | 2019-03-24 14:46 | Physical Therapy Daily Note ---
PT Daily Note-Current Subjective pt in recliner pre-tx with ex in room. pt denies pain. agrees to therapy. Appearance pt in recliner post-tx with call light, room phone, tray table in reach with all needs met. Mental Status Patient Orientation: Person, Place, Time, Situation Attachments: PEG Tube Transfers SCALE: Activities may be completed with or without assistive devices. 4-Clhsfpppil-qkzovap completes the activity by him/herself with no assistance from a helper. 5-Set-up or Clean-up Assistance-helper sets up or cleans up; patient completes activity. [place] assists only prior to or following the activity. 4-Supervision or Touching Assistance-helper provides verbal cues and/or touching/steadying and/or contact guard assistance as patient completes activity. Assistance may be provided throughout the activity or intermittently. 3-Partial/Moderate Assistance-helper does LESS THAN HALF the effort. [place] lifts, holds or supports trunk or limbs, but provides less than half the effort. 2-Substantial/Maximal Assistance-helper does MORE THAN HALF the effort. [place] lifts or holds trunk or limbs and provides more than half the effort. 7-Rndiuxvns-jgwbmk does ALL the effort. Patient does none of the effort to complete the activity. Or, the assistance of 2 or more helpers is required for the patient to complete the activity. If activity was not attempted, code reason: 7-Patient Refused. 9-Not Applicable-not attempted and the patient did not perform the activity before the current illness, exacerbation or injury. 10-Not Attempted due to Environmental Limitations-(lack of equipment, weather restraints, etc.). 88-Not Attempted due to Medical Conditions or Safety Concerns. Sit to Stand (QC): 6 Gait Training Distance: 200' Walk 10 feet (QC): 6 Walk 50 ft with 2 Turns(QC): 6 Walk 150 ft (QC): 6 Gait Assistive Device: None pt ambulates obstacle course for balance training. Pt asked to kick 8 cones over for SLS, bend a chart picker 8 [place] bags for suspension strategy, ambulate across 2 foam surfaces, and step on 1 step. Exercises Seated Therapy Exercises: Ankle pumps, Long arc quads, Hip flexion Seated Reps: 30 (15reps 2 sets) LE strengthening with 2# ankle weights. Treatments balance training, functional LE strengthening, transfer training, skilled ambulation training. Assessment Current Status: Excellent Progress pt has no LOB with obstacle course this session and is able to complete indep. Pt states he is worn out after therapy today but isn't too tired. PT Short Term Goals Short Term Goals Time Frame: Mar 27, 2019 Walk 150 feet: 5 12 steps: 5 PT Manager Language Goals Senior Living Goals PT Manager Language Goals Time Frame: Apr 03, 2019 Roll Left & Right (QC): 6 Sit to Lying (QC): 6 Lying-Sitting on Side/Bed(QC): 6 Sit to Stand (QC): 6 Chair/Hno-xr-Prdhm Xfer(QC): 6 Toilet Transfer (QC): 6 Car Transfer (QC): 6 Does the Patient Walk: Yes Walk 10 feet (QC): 6 Walk 50ft with 2 Turns (QC): 6 Walk 150 ft (QC): 6 Walking 10ft on Uneven Surface: 6 1 Step (curb) (QC): 6 4 Steps (QC): 6 12 Steps (QC): 6 Picking up an Object (QC): 6 Does the Pt use WC or Scooter?: No Type: N/A Type: N/A PT Plan Problem List Problem List: Activity Tolerance, Functional Strength, Safety, Balance, Gait Treatment/Plan Treatment Plan: Continue Plan of Care Treatment Plan: Bed Mobility, Education, Functional Activity Karo, Functional Strength, Group Therapy, Gait, Safety, Therapeutic Exercise, Transfers Treatment Duration: Apr 03, 2019 Frequency: Modified Program (IRF) Estimated Hrs Per Day: 1.5 hours per day Patient and/or Family Agrees t: Yes Safety Risks/Education Patient Education: Gait Training, Transfer Techniques, Correct Positioning, Safety Issues Teaching Recipient: Patient Teaching Methods: Demonstration, Discussion Response to Teaching: Return Demonstration, Reinforcement Needed Time/GCodes Time In: 1400 Time Out: 1415 Total Billed Treatment Time: 15 Total Billed Treatment 1 visit EX Marlene RAHMANADILENE CHA PT Mar 24, 2019 14:46 POS
--- NOTE | 2019-03-24 15:58 | NUR ---
Initial assessment completed for patient admitted to ARU from [facility] 03/23/19 for subarachnoid Hemorrhage. 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 Patient identifies his primary support as his ex-, Beverly Oquendo, who is at bedside. Patient will return home with her upon discharge to stay until recovered enough to return to his prior living arrangement. DME: Patient had no impairment or disabilities prior to acute onset, he has no DME. He does not require a FWW at this time. Ex-/caregiver will explore tub transfer bench and hand held shower wand. HOME SERVICES: Home parenteral services may be required for nutrition through PEG. Patient states he is on continuous at this time. OTHER: Caregiver has requested exploration of a handicap placard, will see if patient meets criteria. INSURANCE: Through employer, [employer]. Patient and caregiver understand purpose of the weekly team conference. Answered questions to their satisfaction, continue process of post hospital care planning.
[2019-03-24 16:32] VITALS: BP 101/60
--- NOTE | 2019-03-24 19:45 | NUR ---
Pt in good spirits after family brought in his small dog to visit him. Smiling, walking in avendaño w steady gait. Tolerating ice chips well.
[2019-03-24] MEDS: MELATONIN 3 MG TABLET PO SCH (21:17)
[2019-03-25 06:00] VITALS: BP 103/68
[2019-03-25] MEDS: APAP 325 MG/10.15 ML LIQ (TYLENOL) UDC PO SCH ×4 (06:17→23:19)
[2019-03-25] MEDS: PANTOPRAZOLE 2 MG/ML LIQUID 200 ML (PROTONIX) NG SCH ×3 (06:18)
[2019-03-25] MEDS: doxAzosin 4 MG (CARDURA) TAB NG SCH (09:45)
[2019-03-25] MEDS: LEVETIRACETAM 500 MG/ 5 ML UDC ORAL SOLN (KEPPRA) NG SCH ×2 (09:49→21:03)
[2019-03-25] MEDS: FLUoxetine HCL 20 MG (PROzac) CAP PO SCH (09:50)
[2019-03-25] MEDS: FOLIC ACID 1 MG TAB PO SCH (09:51)
[2019-03-25] MEDS: DOCUSATE SODIUM 10 MG/ML 10 ML UDC (COLACE) NG SCH ×2 (09:52→21:04)
[2019-03-25] MEDS: SENNA W/DOCUSATE (SENOKOT S) TABLET PO SCH ×2 (09:53→21:04)
[2019-03-25] MEDS: POLYETHYLENE GLYCOL 17 GM (MIRALAX) PACK PO SCH ×2 (09:53→21:04)
[2019-03-25] MEDS: METHOCARBAMOL 500 MG (ROBAXIN) TABLET PO SCH ×2 (09:53→21:02)
--- NOTE | 2019-03-25 10:52 | Occupational Ther Daily Note ---
OT Current Status-Daily Note Subjective Pt seen in room up in bed, agreeable to OT. No pain mentioned. Appearance Alert, cooperative ADL-Treatment Therapy Code Descriptions/Definitions Functional [place] Measure: 0=Not Assessed/NA 4=Minimal Assistance 1=Total Assistance 5=Supervision or Setup 2=Maximal Assistance 6=Modified [place] 3=Moderate Assistance 7=Complete IndependenceSCALE: Activities may be completed with or without assistive devices. 0-Kpuyhnmyjk-jzcwepu completes the activity by him/herself with no assistance from a helper. 5-Set-up or Clean-up Assistance-helper sets up or cleans up; patient completes activity. [place] assists only prior to or following the activity. 4-Supervision or Touching Assistance-helper provides verbal cues and/or touching/steadying and/or contact guard assistance as patient completes activity. Assistance may be provided throughout the activity or intermittently. 3-Partial/Moderate Assistance-helper does LESS THAN HALF the effort. [place] lifts, holds or supports trunk or limbs, but provides less than half the effort. 2-Substantial/Maximal Assistance-helper does MORE THAN HALF the effort. [place] lifts or holds trunk or limbs and provides more than half the effort. 5-Vuyfecany-atpglp does ALL the effort. Patient does none of the effort to complete the activity. Or, the assistance of 2 or more helpers is required for the patient to complete the activity. If activity was not attempted, code reason: 7-Patient Refused. 9-Not Applicable-not attempted and the patient did not perform the activity before the current illness, exacerbation or injury. 10-Not Attempted due to Environmental Limitations-(lack of equipment, weather restraints, etc.). 88-Not Attempted due to Medical Conditions or Safety Concerns. Other Treatment Pt got up out of bed without assistance and walked to bathroom, managing tube feeding pole himself. Transferred on/off toilet without assistance, managed clothing and hygiene and stood at sink to wash hands without help. Pt walked to gym, managing pole himself, and with no observable LOB. Pt completed 12 minutes bilat UE exercise on arm bike set at 15W resistance, taking gone brief recovery break at midpoint. To strengthen arms to help with safe transfers and ADLs and help increase activity tolerance. Pt walked back to room, managing pole and with no LOB. Pt left up in recliner, all needs met. Education OT Patient Education: Exercise program, Progress toward Goal/Update tx plan, Purpose of tx/functional activities Teaching Recipient: Patient Teaching Methods: Discussion Response to Teaching: Verbalize Understanding OT Half-Way Goals Half-Way Goals Time Frame: Apr 06, 2019 Eating (QC): 6 Oral Hygiene (QC): 6 Toileting Hygiene (QC): 6 Shower/Bathe Self (QC): 6 Upper Body Dressing (QC): 6 Lower Body Dressing (QC): 6 On/Off Footwear (QC): 6 Additional Goals: 1-Demonstrate ADL Tasks, 2-Verbalize Understanding, 3-ImproveStrength/Karo 1=Demonstrate adherence to instructed precautions during ADL tasks. 2=Patient will verbalize/demonstrate understanding of assistive devices/modifications for ADL. 3=Patient will improve strength/tolerance for activity to enable patient to perform ADL's. OT Education/Plan Discharge Recommendations Plan/Recommendations: Continue POC Treatment Plan/Plan of Care Patient would benefit from OT for education, treatment and training to promote independence in ADL's, mobility, safety and/or upper extremity function for ADL's. Plan of Care: ADL Retraining, Functional Mobility, UE Funct Exercise/Act Treatment Duration: Apr 06, 2019 Frequency: At least 5 of 7 days/Wk (IRF) Estimated Hrs Per Day: 1.5 hours per day Agreement: Yes Rehab Potential: Good Time/GCodes Start Time: 10:00 Stop Time: 10:31 Total Time Billed (hr/min): 31 Billed Treatment Time visit, 5 minutes ADL, 26 minutes exercise TUNDE COLON OT Mar 25, 2019 10:52 POS
--- NOTE | 2019-03-25 11:12 | Physical Therapy Daily Note ---
PT Daily Note-Current Subjective Pt agreeable to PT session Pain Numeric Pain Scale: 0-No Pain Appearance Pt sitting up in chair awake and alert upon arrival. pt sitting up in recliner at end of session, call light, phone and bedside table within reach. Mental Status Patient Orientation: Person, Place, Time, Eyes Open, Situation, Normal For Age Attachments: NG Tube Transfers SCALE: Activities may be completed with or without assistive devices. 5-Krmibezzle-fkwzjpk completes the activity by him/herself with no assistance from a helper. 5-Set-up or Clean-up Assistance-helper sets up or cleans up; patient completes activity. [place] assists only prior to or following the activity. 4-Supervision or Touching Assistance-helper provides verbal cues and/or touching/steadying and/or contact guard assistance as patient completes activity. Assistance may be provided throughout the activity or intermittently. 3-Partial/Moderate Assistance-helper does LESS THAN HALF the effort. [place] lifts, holds or supports trunk or limbs, but provides less than half the effort. 2-Substantial/Maximal Assistance-helper does MORE THAN HALF the effort. [place] lifts or holds trunk or limbs and provides more than half the effort. 0-Ghyblbvug-ptjvcn does ALL the effort. Patient does none of the effort to complete the activity. Or, the assistance of 2 or more helpers is required for the patient to complete the activity. If activity was not attempted, code reason: 7-Patient Refused. 9-Not Applicable-not attempted and the patient did not perform the activity before the current illness, exacerbation or injury. 10-Not Attempted due to Environmental Limitations-(lack of equipment, weather restraints, etc.). 88-Not Attempted due to Medical Conditions or Safety Concerns. Sit to Stand (QC): 6 Gait Training Does the Patient Walk?: Yes Distance: >1200 Walk 10 feet (QC): 6 Walk 50 ft with 2 Turns(QC): 6 Walk 150 ft (QC): 6 Walking 10ft/uneven surface-QC: 4 Gait Assistive Device: None good pace, able to push iv pole I, no LOB or unsteadiness Stair Training 1 Step (curb) (QC): 6 Exercises NuStep Minutes: 15 NuStep Workload: 7 (seat 9, arms 9) Neuromuscular obstacle course, stepping over various sized objects, onto air disc, step, Airex with pillow under, area rug with pillow under, weaving while dribbling ball with feet x13 min Treatments education, safety, transfers, gait, high balance activities, strength, functi onal mobility, activity tolerance Assessment Current Status: Excellent Progress PT Short Term Goals Short Term Goals Time Frame: Mar 27, 2019 Walk 150 feet: 5 12 steps: 5 PT [facility] Goals Digital Director Goals PT [facility] Goals Time Frame: Apr 03, 2019 Roll Left & Right (QC): 6 Sit to Lying (QC): 6 Lying-Sitting on Side/Bed(QC): 6 Sit to Stand (QC): 6 Chair/Ldd-xl-Dgjce Xfer(QC): 6 Toilet Transfer (QC): 6 Car Transfer (QC): 6 Does the Patient Walk: Yes Walk 10 feet (QC): 6 Walk 50ft with 2 Turns (QC): 6 Walk 150 ft (QC): 6 Walking 10ft on Uneven Surface: 6 1 Step (curb) (QC): 6 4 Steps (QC): 6 12 Steps (QC): 6 Picking up an Object (QC): 6 Does the Pt use WC or Scooter?: No Type: N/A Type: N/A PT Plan Treatment/Plan Treatment Plan: Continue Plan of Care Treatment Plan: Bed Mobility, Education, Functional Activity [place], Functional Strength, Group Therapy, Gait, Safety, Therapeutic Exercise, Transfers Treatment Duration: Apr 03, 2019 Frequency: Modified Program (IRF) Estimated Hrs Per Day: 1.5 hours per day Patient and/or Family Agrees t: Yes Safety Risks/Education Patient Education: Gait Training, Transfer Techniques, Safety Issues Teaching Recipient: Patient Teaching Methods: Discussion Response to Teaching: Verbalize Understanding Time/GCodes Time In: 1043 Time Out: 1121 Total Billed Treatment Time: 38 Total Billed Treatment 1 visit, GT x10 min, NM x13 min, EX x15 min ZEFERINO COTTER [employer]AN Mar 25, 2019 11:12 POS
[2019-03-25] MEDS: SCOPOLAMINE 1.5 MG (TRANSDERM-SCOP) PATCH TD SCH (11:29)
--- NOTE | 2019-03-25 12:28 | PM&R Progress Note ---
Subjective HPI/CC On Admission Date Seen by Provider: Mar 25, 2019 Time Seen by Provider: 10:30 Subjective/Events-last exam Pt had a pretty good night last night the best he is slept for many weeks Maintain a suction device because the saliva bag appears to be unsanitary Swallowing is a major issue Zofran is available as needed Tube feedings are increasing per protocol Last BM was normal [place] will be held due to blood pressure less than 130 Will try scopolamine patch every 72 hours to dry up secretions Conferred with RN Reviewed therapy notes Checked meds and labs Review of Systems General: Fatigue HEENT: Dysphasia Neurological: Confusion Objective Exam Vital Signs Vital Signs Date Time Temp Pulse Resp B/P (MAP) Pulse Ox O2 Delivery O2 Flow Rate FiO2 03/25/19 09:00 Room Air 03/25/19 06:00 36.3 65 16 103/68 (80) 99 Capillary Refill : General Appearance: No Apparent Distress, WD/WN HEENT: PERRL/EOMI, Normal ENT Inspection, Pharynx Normal Neck: Full Range of Motion, Normal Inspection, Non Tender, Supple, Carotid Bruit Respiratory: Chest Non Tender, Lungs Clear, Normal Breath Sounds, No Accessory Muscle Use, No Respiratory Distress Cardiovascular: Regular Rate, Rhythm, No Edema, No Gallop, No JVD, No Murmur, Normal Peripheral Pulses Gastrointestinal: Normal Bowel Sounds, No Organomegaly, No Pulsatile Mass, Non Tender, Soft Back: Normal Inspection, No CVA Tenderness, No Vertebral Tenderness Extremity: Normal Capillary Refill, Normal Inspection, Normal Range of Motion, Non Tender, No Calf Tenderness, No Pedal Edema Neurologic/Psychiatric: Alert, Oriented x3, No Motor/Sensory Deficits, 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 FIM Transfers Therapy Code Descriptions/Definitions Functional [place] Measure: 0=Not Assessed/NA 4=Minimal Assistance 1=Total Assistance 5=Supervision or Setup 2=Maximal Assistance 6=Modified [place] 3=Moderate Assistance 7=Complete IndependenceSCALE: Activities may be completed with or without assistive devices. 1-Gdbctzsmei-wtpjsld completes the activity by him/herself with no assistance from a helper. 5-Set-up or Clean-up Assistance-helper sets up or cleans up; patient completes activity. [place] assists only prior to or following the activity. 4-Supervision or Touching Assistance-helper provides verbal cues and/or touching/steadying and/or contact guard assistance as patient completes activity. Assistance may be provided throughout the activity or intermittently. 3-Partial/Moderate Assistance-helper does LESS THAN HALF the effort. [place] lifts, holds or supports trunk or limbs, but provides less than half the effort. 2-Substantial/Maximal Assistance-helper does MORE THAN HALF the effort. [place] lifts or holds trunk or limbs and provides more than half the effort. 6-Iswochgmz-ntfosy does ALL the effort. Patient does none of the effort to complete the activity. Or, the assistance of 2 or more helpers is required for the patient to complete the activity. If activity was not attempted, code reason: 7-Patient Refused. 9-Not Applicable-not attempted and the patient did not perform the activity before the current illness, exacerbation or injury. 10-Not Attempted due to Environmental Limitations-(lack of equipment, weather restraints, etc.). 88-Not Attempted due to Medical Conditions or Safety Concerns. Roll Left to Right (QC): 6 Sit to Lying (QC): 6 Sit to Stand (QC): 6 Chair/Eza-gf-Rdxgg Xfer(QC): 6 Car Transfer (QC): 5 Gait Training Does the Patient Walk?: Yes Distance: >1200 Walk 10 feet (QC): 6 Walk 50 ft with 2 Turns(QC): 6 Walk 150 ft (QC): 6 Walking 10ft/uneven surface-QC: 4 Gait Assistive Device: None Wheelchair Training Does the Pt Use a Wheelchair?: No Wheel 50 ft with 2 turns (QC): 9 Wheel 150 ft (QC): 9 Type of Wheelchair: Manual Stair Training 1 Step (curb) (QC): 6 4 Steps (QC): 5 12 Steps (QC): 5 Balance Picking up an Object (QC): 4 ADL-Treatment Eating (QC): 88 (PEG tube) Oral Hygiene (QC): 6 Shower/Bathe Self (QC): 5 (set up) Upper Body Dressing (QC): 6 Lower Body Dressing (QC): 6 (Footwear QC:6) On/Off Footwear (QC): 5 (Set up) Toileting Hygiene (QC): 6 Toilet Transfer (QC): 6 Assessment/Plan Assessment and Plan Assess & Plan/Chief Complaint Assessment: SAH Dysphagia Aspiration risk PEG Depression Former smoker Plan: IRF protocol ST Suction device for excessive saliva Scopolamine patch trial Advance tube feedings (1) Nontraumatic subarachnoid hemorrhage, unspecified (2) S/P percutaneous endoscopic gastrostomy (PEG) tube placement (3) Dysphagia (4) At risk for aspiration (5) 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
[2019-03-25 16:14] VITALS: BP 118/71
[2019-03-25 18:00] VITALS: BP 98/58
[2019-03-25] MEDS: MELATONIN 3 MG TABLET PO SCH (21:05)
[2019-03-26] MEDS: APAP 325 MG/10.15 ML LIQ (TYLENOL) UDC PO SCH ×4 (05:24→23:18)
[2019-03-26] MEDS: PANTOPRAZOLE 2 MG/ML LIQUID 200 ML (PROTONIX) NG SCH ×3 (05:27)
[2019-03-26 05:50] VITALS: BP 89/54
[2019-03-26] MEDS: METHOCARBAMOL 500 MG (ROBAXIN) TABLET PO SCH ×2 (08:47→20:44)
[2019-03-26] MEDS: LEVETIRACETAM 500 MG/ 5 ML UDC ORAL SOLN (KEPPRA) NG SCH ×2 (08:47→20:44)
[2019-03-26] MEDS: FOLIC ACID 1 MG TAB PO SCH (08:47)
[2019-03-26] MEDS: FLUoxetine HCL 20 MG (PROzac) CAP PO SCH (08:48)
[2019-03-26] MEDS: DOCUSATE SODIUM 10 MG/ML 10 ML UDC (COLACE) NG SCH ×2 (09:05→20:45)
[2019-03-26] MEDS: SENNA W/DOCUSATE (SENOKOT S) TABLET PO SCH ×2 (09:05→20:45)
[2019-03-26] MEDS: POLYETHYLENE GLYCOL 17 GM (MIRALAX) PACK PO SCH ×2 (09:05→20:45)
[2019-03-26] MEDS: doxAzosin 4 MG (CARDURA) TAB NG SCH (09:05)
[2019-03-26 10:17] VITALS: BP 92/56
--- NOTE | 2019-03-26 11:48 | PM&R Progress Note ---
Subjective HPI/CC On Admission Date Seen by Provider: Mar 26, 2019 Time Seen by Provider: 11:45 Subjective/Events-last exam Pt had a pretty good night last night Maintained a suction device rather than the saliva bag Swallowing is a major issue and he is very concerned about this and will be working very hard to resolve this issue Zofran is available as needed Tube feedings are increasing per protocol and he is tolerating that well Last BM was normal [place] will be held due to blood pressure less than 130 Trial of scopolamine patch every 72 hours to dry up secretions of which he doesn't know if it is helping or not Conferred with RN Reviewed therapy notes Checked meds and labs Review of Systems General: Fatigue Gastrointestinal: Nausea Objective Exam Vital Signs Vital Signs Date Time Temp Pulse Resp B/P (MAP) Pulse Ox O2 Delivery O2 Flow Rate FiO2 03/26/19 10:17 81 92/56 (68) 03/26/19 09:00 Room Air 03/26/19 05:50 36.6 18 95 Capillary Refill : General Appearance: No Apparent Distress, WD/WN HEENT: PERRL/EOMI, Normal ENT Inspection, Pharynx Normal Neck: Full Range of Motion, Normal Inspection, Non Tender, Supple, Carotid Bruit Respiratory: Chest Non Tender, Lungs Clear, Normal Breath Sounds, No Accessory Muscle Use, No Respiratory Distress Cardiovascular: Regular Rate, Rhythm, No Edema, No Gallop, No JVD, No Murmur, Normal Peripheral Pulses Gastrointestinal: Normal Bowel Sounds, No Organomegaly, No Pulsatile Mass, Non Tender, Soft Back: Normal Inspection, No CVA Tenderness, No Vertebral Tenderness Extremity: Normal Capillary Refill, Normal Inspection, Normal Range of Motion, Non Tender, No Calf Tenderness, No Pedal Edema Neurologic/Psychiatric: Alert, Oriented x3, No Motor/Sensory Deficits, milieu coordinator II- XII Norm as Tested, Depressed Affect, Motor Weakness (fine motor skills), Other (memory loss noted) Skin: Normal Color, Warm/Dry Lymphatic: No Adenopathy Results/Procedures Lab Patient resulted labs reviewed. FIM Transfers Therapy Code Descriptions/Definitions Functional [place] Measure: 0=Not Assessed/NA 4=Minimal Assistance 1=Total Assistance 5=Supervision or Setup 2=Maximal Assistance 6=Modified [place] 3=Moderate Assistance 7=Complete IndependenceSCALE: Activities may be completed with or without assistive devices. 5-Qypoxhmflr-bqsvtex completes the activity by him/herself with no assistance from a helper. 5-Set-up or Clean-up Assistance-helper sets up or cleans up; patient completes activity. [place] assists only prior to or following the activity. 4-Supervision or Touching Assistance-helper provides verbal cues and/or touching/steadying and/or contact guard assistance as patient completes activity. Assistance may be provided throughout the activity or intermittently. 3-Partial/Moderate Assistance-helper does LESS THAN HALF the effort. [place] lifts, holds or supports trunk or limbs, but provides less than half the effort. 2-Substantial/Maximal Assistance-helper does MORE THAN HALF the effort. [place] lifts or holds trunk or limbs and provides more than half the effort. 9-Zdzreztrr-jaedyk does ALL the effort. Patient does none of the effort to complete the activity. Or, the assistance of 2 or more helpers is required for the patient to complete the activity. If activity was not attempted, code reason: 7-Patient Refused. 9-Not Applicable-not attempted and the patient did not perform the activity before the current illness, exacerbation or injury. 10-Not Attempted due to Environmental Limitations-(lack of equipment, weather restraints, etc.). 88-Not Attempted due to Medical Conditions or Safety Concerns. Roll Left to Right (QC): 6 Sit to Lying (QC): 6 Sit to Stand (QC): 6 Chair/Oky-ot-Twxjo Xfer(QC): 6 Car Transfer (QC): 5 Gait Training Does the Patient Walk?: Yes Distance: >1200 Walk 10 feet (QC): 6 Walk 50 ft with 2 Turns(QC): 6 Walk 150 ft (QC): 6 Walking 10ft/uneven surface-QC: 4 Gait Assistive Device: None Wheelchair Training Does the Pt Use a Wheelchair?: No Wheel 50 ft with 2 turns (QC): 9 Wheel 150 ft (QC): 9 Type of Wheelchair: Manual Stair Training 1 Step (curb) (QC): 6 4 Steps (QC): 5 12 Steps (QC): 5 Balance Picking up an Object (QC): 4 ADL-Treatment Eating (QC): 88 (PEG tube) Oral Hygiene (QC): 6 Shower/Bathe Self (QC): 5 (set up) Upper Body Dressing (QC): 6 Lower Body Dressing (QC): 6 (Footwear QC:6) On/Off Footwear (QC): 5 (Set up) Toileting Hygiene (QC): 6 Toilet Transfer (QC): 6 Assessment/Plan Assessment and Plan Assess & Plan/Chief Complaint Assessment: SAH Dysphagia Aspiration risk PEG Depression Former smoker Plan: IRF protocol ST Suction device for excessive saliva Scopolamine patch trial Advance tube feedings (1) Nontraumatic subarachnoid hemorrhage, unspecified (2) S/P percutaneous endoscopic gastrostomy (PEG) tube placement (3) Dysphagia (4) At risk for aspiration (5) 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
[2019-03-26 17:25] VITALS: BP 105/69
[2019-03-26] MEDS: MELATONIN 3 MG TABLET PO SCH (20:44)
[2019-03-27 05:17] LABS: BASOPHILS % (AUTO) 0 % (0-10); EOSINOPHILS # (AUTO) 0.1 10^3/uL (0.0-0.3); EOSINOPHILS % (AUTO) 2 % (0-10); HEMATOCRIT 40 % (40-54); HEMOGLOBIN 12.2 G/DL (13.3-17.7); LYMPHOCYTES # (AUTO) 1.5 X 10^3 (1.0-4.0); LYMPHOCYTES % (AUTO) 22 % (12-44); MEAN CORPUSCULAR HEMOGLOBIN 30 PG (25-34); MEAN CORPUSCULAR HGB CONC 31 G/DL (32-36); MEAN CORPUSCULAR VOLUME 95 FL (80-99); MEAN PLATELET VOLUME 11.6 FL (7.4-10.4); MONOCYTES # (AUTO) 0.9 X 10^3 (0.0-1.0); MONOCYTES % (AUTO) 14 % (0-12); NEUTROPHILS # (AUTO) 4.2 X 10^3 (1.8-7.8); NEUTROPHILS % (AUTO) 62 % (42-75); PLATELET COUNT 204 10^3/uL (130-400); RED CELL DISTRIBUTION WIDTH 12.6 % (10.0-14.5); WHITE BLOOD COUNT 6.8 10^3/uL (4.3-11.0)
[2019-03-27 05:37] VITALS: BP 118/74
[2019-03-27 05:46] LABS: ALANINE AMINOTRANSFERASE 72 U/L (0-55); ALBUMIN 3.8 GM/DL (3.2-4.5); ALKALINE PHOSPHATASE 111 U/L (40-136); BILIRUBIN,TOTAL 0.2 MG/DL (0.1-1.0); BUN/CREATININE RATIO 13; CALCIUM 9.2 MG/DL (8.5-10.1); CARBON DIOXIDE 28 MMOL/L (21-32); CHLORIDE 105 MMOL/L (98-107); CREATININE SERUM 0.77 MG/DL (0.60-1.30); GFR ESTIMATED > 60; GLUCOSE 70 MG/DL (70-105); POTASSIUM 4.4 MMOL/L (3.6-5.0); SODIUM 142 MMOL/L (135-145); TOTAL PROTEIN 6.4 GM/DL (6.4-8.2)
[2019-03-27] MEDS: APAP 325 MG/10.15 ML LIQ (TYLENOL) UDC PO SCH ×4 (06:28→23:16)
[2019-03-27] MEDS: PANTOPRAZOLE 2 MG/ML LIQUID 200 ML (PROTONIX) NG SCH ×3 (06:30)
[2019-03-27 08:31] VITALS: BP 128/78
[2019-03-27] MEDS: FOLIC ACID 1 MG TAB PO SCH (08:32)
[2019-03-27] MEDS: METHOCARBAMOL 500 MG (ROBAXIN) TABLET PO SCH ×2 (08:32→21:48)
[2019-03-27] MEDS: FLUoxetine HCL 20 MG (PROzac) CAP PO SCH (08:32)
[2019-03-27] MEDS: LEVETIRACETAM 500 MG/ 5 ML UDC ORAL SOLN (KEPPRA) NG SCH ×2 (08:32→21:48)
[2019-03-27] MEDS: doxAzosin 4 MG (CARDURA) TAB NG SCH (09:00)
--- NOTE | 2019-03-27 09:44 | PM&R Progress Note ---
Subjective HPI/CC On Admission Date Seen by Provider: Mar 27, 2019 Time Seen by Provider: 08:15 Subjective/Events-last exam Pt doing pretty well BP a bit low, systolic of 114 Scopolamine patch is difficult to say whether it is helping or not will maintain it every 3 days Denies any significant pain Tube feedings leaked last night onto his bed Conferred with RN Reviewed therapy notes Checked meds and labs Review of Systems General: Fatigue HEENT: Dysphasia Objective Exam Vital Signs Vital Signs Date Time Temp Pulse Resp B/P (MAP) Pulse Ox O2 Delivery O2 Flow Rate FiO2 03/27/19 16:01 35.4 83 16 108/71 (83) 98 Room Air Capillary Refill : General Appearance: No Apparent Distress, WD/WN HEENT: PERRL/EOMI, Normal ENT Inspection, Pharynx Normal Neck: Full Range of Motion, Normal Inspection, Non Tender, Supple, Carotid Bruit Respiratory: Chest Non Tender, Lungs Clear, Normal Breath Sounds, No Accessory Muscle Use, No Respiratory Distress Cardiovascular: Regular Rate, Rhythm, No Edema, No Gallop, No JVD, No Murmur, Normal Peripheral Pulses Gastrointestinal: Normal Bowel Sounds, No Organomegaly, No Pulsatile Mass, Non Tender, Soft Back: Normal Inspection, No CVA Tenderness, No Vertebral Tenderness Extremity: Normal Capillary Refill, Normal Inspection, Normal Range of Motion, Non Tender, No Calf Tenderness, No Pedal Edema Neurologic/Psychiatric: Alert, Oriented x3, No Motor/Sensory Deficits, 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 FIM Transfers Therapy Code Descriptions/Definitions Functional [place] Measure: 0=Not Assessed/NA 4=Minimal Assistance 1=Total Assistance 5=Supervision or Setup 2=Maximal Assistance 6=Modified [place] 3=Moderate Assistance 7=Complete IndependenceSCALE: Activities may be completed with or without assistive devices. 7-Bmsfutovry-ceovtaf completes the activity by him/herself with no assistance from a helper. 5-Set-up or Clean-up Assistance-helper sets up or cleans up; patient completes activity. [place] assists only prior to or following the activity. 4-Supervision or Touching Assistance-helper provides verbal cues and/or touching/steadying and/or contact guard assistance as patient completes activity. Assistance may be provided throughout the activity or intermittently. 3-Partial/Moderate Assistance-helper does LESS THAN HALF the effort. [place] lifts, holds or supports trunk or limbs, but provides less than half the effort. 2-Substantial/Maximal Assistance-helper does MORE THAN HALF the effort. [place] lifts or holds trunk or limbs and provides more than half the effort. 5-Qnypkfilv-gmnvxj does ALL the effort. Patient does none of the effort to complete the activity. Or, the assistance of 2 or more helpers is required for the patient to complete the activity. If activity was not attempted, code reason: 7-Patient Refused. 9-Not Applicable-not attempted and the patient did not perform the activity before the current illness, exacerbation or injury. 10-Not Attempted due to Environmental Limitations-(lack of equipment, weather restraints, etc.). 88-Not Attempted due to Medical Conditions or Safety Concerns. Roll Left to Right (QC): 6 Sit to Lying (QC): 6 Sit to Stand (QC): 6 Chair/Xdg-ld-Lqrzq Xfer(QC): 6 Car Transfer (QC): 5 Gait Training Does the Patient Walk?: Yes Distance: >1200 Walk 10 feet (QC): 6 Walk 50 ft with 2 Turns(QC): 6 Walk 150 ft (QC): 6 Walking 10ft/uneven surface-QC: 4 Gait Assistive Device: None Wheelchair Training Does the Pt Use a Wheelchair?: No Wheel 50 ft with 2 turns (QC): 9 Wheel 150 ft (QC): 9 Type of Wheelchair: Manual Stair Training 1 Step (curb) (QC): 6 4 Steps (QC): 5 12 Steps (QC): 5 Balance Picking up an Object (QC): 4 ADL-Treatment Eating (QC): 88 (PEG tube) Oral Hygiene (QC): 6 Shower/Bathe Self (QC): 5 (set up) Upper Body Dressing (QC): 6 Lower Body Dressing (QC): 6 (Footwear QC:6) On/Off Footwear (QC): 5 (Set up) Toileting Hygiene (QC): 6 Toilet Transfer (QC): 6 Assessment/Plan Assessment and Plan Assess & Plan/Chief Complaint Assessment: SAH Dysphagia Aspiration risk PEG Depression Former smoker Plan: IRF protocol ST Suction device for excessive saliva Scopolamine patch trial Advance tube feedings and transition to bolus feeds (1) Nontraumatic subarachnoid hemorrhage, unspecified (2) S/P percutaneous endoscopic gastrostomy (PEG) tube placement (3) Dysphagia (4) At risk for aspiration (5) 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
[2019-03-27] MEDS: DOCUSATE SODIUM 10 MG/ML 10 ML UDC (COLACE) NG SCH ×2 (09:48→21:48)
[2019-03-27] MEDS: SENNA W/DOCUSATE (SENOKOT S) TABLET PO SCH ×2 (09:49→21:48)
[2019-03-27] MEDS: POLYETHYLENE GLYCOL 17 GM (MIRALAX) PACK PO SCH ×2 (09:49→21:48)
--- NOTE | 2019-03-27 10:30 | Occupational Ther Daily Note ---
OT Current Status-Daily Note Subjective Pt alert and willing to participate with OT services. No complains of pain or dizziness. Mental Status/Objective Attachments: PEG Tube ADL-Treatment Therapy Code Descriptions/Definitions Functional [place] Measure: 0=Not Assessed/NA 4=Minimal Assistance 1=Total Assistance 5=Supervision or Setup 2=Maximal Assistance 6=Modified [place] 3=Moderate Assistance 7=Complete IndependenceSCALE: Activities may be completed with or without assistive devices. 5-Srlldipvqa-iiugyua completes the activity by him/herself with no assistance from a helper. 5-Set-up or Clean-up Assistance-helper sets up or cleans up; patient completes activity. [place] assists only prior to or following the activity. 4-Supervision or Touching Assistance-helper provides verbal cues and/or touching/steadying and/or contact guard assistance as patient completes activity. Assistance may be provided throughout the activity or intermittently. 3-Partial/Moderate Assistance-helper does LESS THAN HALF the effort. [place] lifts, holds or supports trunk or limbs, but provides less than half the effort. 2-Substantial/Maximal Assistance-helper does MORE THAN HALF the effort. [place] lifts or holds trunk or limbs and provides more than half the effort. 9-Rvemxzazo-iuhsai does ALL the effort. Patient does none of the effort to complete the activity. Or, the assistance of 2 or more helpers is required for the patient to complete the activity. If activity was not attempted, code reason: 7-Patient Refused. 9-Not Applicable-not attempted and the patient did not perform the activity before the current illness, exacerbation or injury. 10-Not Attempted due to Environmental Limitations-(lack of equipment, weather restraints, etc.). 88-Not Attempted due to Medical Conditions or Safety Concerns. Shower/Bathe Self (QC): 5 (Pt performed bathing tasks with SBA for safety. ) Upper Body Dressing (QC): 5 (SBA for safety. ) Lower Body Dressing (QC): 5 (SBA for safety.) Toileting Hygiene (QC): 5 (SBA for safety. ) Toilet Transfer (QC): 5 (SBA for safety. ) Pt participated in functional mobility throughout his environment, with SBA for safety without use of UE support. Pt demonstrated good safety awareness and did not experience LOB. Following ADLs, the pt participated in BUE ther ex with use of 6# free weight, through gross UE planes of motion, 1x15 reps. Pt required rest breaks and experienced mild shortness of breath, however pt was able to complete UE ther ex without difficulty. Education OT Patient Education: Exercise program Teaching Recipient: Patient Teaching Methods: Demonstration Response to Teaching: Verbalize Understanding, Return Demonstration OT [employer] Goals [facility] Goals Time Frame: Apr 06, 2019 Eating (QC): 6 Oral Hygiene (QC): 6 Toileting Hygiene (QC): 6 Shower/Bathe Self (QC): 6 Upper Body Dressing (QC): 6 Lower Body Dressing (QC): 6 On/Off Footwear (QC): 6 Additional Goals: 1-Demonstrate ADL Tasks, 2-Verbalize Understanding, 3- ImproveStrength/[place] 1=Demonstrate adherence to instructed precautions during ADL tasks. 2=Patient will verbalize/demonstrate understanding of assistive devices/modifications for ADL. 3=Patient will improve strength/tolerance for activity to enable patient to perform ADL's. OT Education/Plan Discharge Recommendations Plan/Recommendations: Continue POC Treatment Plan/Plan of Care Patient would benefit from OT for education, treatment and training to promote independence in ADL's, mobility, safety and/or upper extremity function for ADL' s. Plan of Care: ADL Retraining, Functional Mobility, UE Funct Exercise/Act Treatment Duration: Apr 06, 2019 Frequency: At least 5 of 7 days/Wk (IRF) Estimated Hrs Per Day: 1.5 hours per day Agreement: Yes Rehab Potential: Good Time/GCodes Start Time: 09:30 Stop Time: 10:30 Total Time Billed (hr/min): 60 Billed Treatment Time 1, ADL3, TE1 [place] OT Mar 27, 2019 10:29 POS
--- NOTE | 2019-03-27 11:54 | Physical Therapy Daily Note ---
PT Daily Note-Current Subjective pt in recliner pre-tx agrees to therapy, denies pain. RN in room holds Peg feeding for therapy. Appearance pt in recliner post-tx with call light, room phone, tray table in reach with all needs met at this time. Mental Status Patient Orientation: Person, Place, Time, Situation Attachments: PEG Tube Transfers SCALE: Activities may be completed with or without assistive devices. 6-Mwstkpkjpr-dfhoxly completes the activity by him/herself with no assistance from a helper. 5-Set-up or Clean-up Assistance-helper sets up or cleans up; patient completes activity. [place] assists only prior to or following the activity. 4-Supervision or Touching Assistance-helper provides verbal cues and/or touching/steadying and/or contact guard assistance as patient completes activity. Assistance may be provided throughout the activity or intermittently. 3-Partial/Moderate Assistance-helper does LESS THAN HALF the effort. [place] lifts, holds or supports trunk or limbs, but provides less than half the effort. 2-Substantial/Maximal Assistance-helper does MORE THAN HALF the effort. [place] lifts or holds trunk or limbs and provides more than half the effort. 5-Xvscrfnwe-kruqeh does ALL the effort. Patient does none of the effort to complete the activity. Or, the assistance of 2 or more helpers is required for the patient to complete the activity. If activity was not attempted, code reason: 7-Patient Refused. 9-Not Applicable-not attempted and the patient did not perform the activity before the current illness, exacerbation or injury. 10-Not Attempted due to Environmental Limitations-(lack of equipment, weather restraints, etc.). 88-Not Attempted due to Medical Conditions or Safety Concerns. Sit to Stand (QC): 6 Gait Training Distance: 4000' Walk 10 feet (QC): 6 Walk 50 ft with 2 Turns(QC): 6 Walk 150 ft (QC): 6 Gait Assistive Device: FWW pt ambulates up and down ramps outside, up and down stairs, around curves, and up and down curbs. Stair Training Stair Training: Handrails/: 1 handrail 1 Step (curb) (QC): 6 4 Steps (QC): 6 12 Steps (QC): 6 Stairs: Pattern: Reciprocal Exercises Standing: Braiding (20' B/L), Retro gait (20'), Step-ups (20x up onto curb) NuStep Minutes: 20 NuStep Workload: 7 Treatments pt performed transfer training, skilled ambulation training, high level balance training, step training, and education. Assessment Current Status: Excellent Progress pt has minor LOB with braiding but is able to self correct. Pt reports that he it feels very good to be outside for therapy and to get out in the sun. Pt feels like he is happy with where he is except for his fatigue after session and his high level balance. PT Short Term Goals Short Term Goals Time Frame: Mar 27, 2019 Walk 150 feet: 5 12 steps: 5 PT Group Home Goals Group Home Goals PT Program Medical Director Goals Time Frame: Apr 03, 2019 Roll Left & Right (QC): 6 Sit to Lying (QC): 6 Lying-Sitting on Side/Bed(QC): 6 Sit to Stand (QC): 6 Chair/Dbd-hv-Ekmnp Xfer(QC): 6 Toilet Transfer (QC): 6 Car Transfer (QC): 6 Does the Patient Walk: Yes Walk 10 feet (QC): 6 Walk 50ft with 2 Turns (QC): 6 Walk 150 ft (QC): 6 Walking 10ft on Uneven Surface: 6 1 Step (curb) (QC): 6 4 Steps (QC): 6 12 Steps (QC): 6 Picking up an Object (QC): 6 Does the Pt use WC or Scooter?: No Type: N/A Type: N/A PT Plan Problem List Problem List: Activity Tolerance, Functional Strength, Safety, Balance, Gait Treatment/Plan Treatment Plan: Continue Plan of Care Treatment Plan: Education, Functional Activity Karo, Functional Strength, Group Therapy, Gait, Safety, Therapeutic Exercise, Transfers Treatment Duration: Apr 03, 2019 Frequency: Modified Program (IRF) Estimated Hrs Per Day: 1.5 hours per day Patient and/or Family Agrees t: Yes Safety Risks/Education Patient Education: Gait Training, Transfer Techniques, Steps, Correct Positioning, Safety Issues Teaching Recipient: Patient Teaching Methods: Demonstration, Discussion Response to Teaching: Return Demonstration, Reinforcement Needed Time/GCodes Time In: 1100 Time Out: 1200 Total Billed Treatment Time: 60 Total Billed Treatment 1 visit GT 25' FA 35' SHARLA FISHMAN LABOR TRAINING MANAGER Mar 27, 2019 11:54 POS
--- NOTE | 2019-03-27 12:44 | NUR ---
After Peg tube being clamped for an hour for therapy, Residual volume is at [address] and Speech Therapy notified. Per Dr. Garcia, will get recommendation from RD and Speech Therapy and trial bolus feedings.
--- NOTE | 2019-03-27 12:56 | Physical Therapy Daily Note ---
PT Daily Note-Current Subjective pt in bed pre-tx agrees to therapy. Pt reports he is having a headache at this time with unrated pain. Appearance pt in bed post-tx with call light, room phone and tray in reach with all needs met at this time. Mental Status Patient Orientation: Person, Place, Time, Situation Attachments: PEG Tube Transfers SCALE: Activities may be completed with or without assistive devices. 9-Xafdfzpdtr-yrnwttx completes the activity by him/herself with no assistance from a helper. 5-Set-up or Clean-up Assistance-helper sets up or cleans up; patient completes activity. [place] assists only prior to or following the activity. 4-Supervision or Touching Assistance-helper provides verbal cues and/or touching/steadying and/or contact guard assistance as patient completes activity. Assistance may be provided throughout the activity or intermittently. 3-Partial/Moderate Assistance-helper does LESS THAN HALF the effort. [place] lifts, holds or supports trunk or limbs, but provides less than half the effort. 2-Substantial/Maximal Assistance-helper does MORE THAN HALF the effort. [place] lifts or holds trunk or limbs and provides more than half the effort. 0-Wynfxealg-hhrcvs does ALL the effort. Patient does none of the effort to complete the activity. Or, the assistance of 2 or more helpers is required for the patient to complete the activity. If activity was not attempted, code reason: 7-Patient Refused. 9-Not Applicable-not attempted and the patient did not perform the activity before the current illness, exacerbation or injury. 10-Not Attempted due to Environmental Limitations-(lack of equipment, weather restraints, etc.). 88-Not Attempted due to Medical Conditions or Safety Concerns. Roll Left & Right (QC): 6 Sit to Lying (QC): 6 Lying to Sitting/Side of Bed(Q: 6 Sit to Stand (QC): 6 Gait Training Distance: 2000' Walk 10 feet (QC): 6 Walk 50 ft with 2 Turns(QC): 6 Walk 150 ft (QC): 6 Walking 10ft/uneven surface-QC: 6 Gait Assistive Device: None pt ambulated outside the hospital where he encountered uneven surfaces (grass) with small hills, ramps, steps in which the pt has no difficulty. pt performed tandem walking for 75'x3 with no LOB. Stair Training Stair Training: Handrails/: No handrail #of Steps: 5 1 Step (curb) (QC): 6 4 Steps (QC): 6 Stairs: Pattern: Reciprocal Balance Picking up an Object (QC): 6 (pt reaches down to fix shoe and back up) Treatments pt performed high level balance training, skilled ambulation training, transfer training, step training, and education. Assessment Current Status: Excellent Progress pt has no LOB this session with grassy uneven surfaces which had hills, tandem walking, or ramps/stairs. Pt is fatigued after structured therapy. PT Short Term Goals Short Term Goals Time Frame: Mar 27, 2019 Walk 150 feet: 5 12 steps: 5 PT Longterm Goals Longterm Goals PT Longterm Goals Time Frame: Apr 03, 2019 Roll Left & Right (QC): 6 Sit to Lying (QC): 6 Lying-Sitting on Side/Bed(QC): 6 Sit to Stand (QC): 6 Chair/Uds-ic-Gctzt Xfer(QC): 6 Toilet Transfer (QC): 6 Car Transfer (QC): 6 Does the Patient Walk: Yes Walk 10 feet (QC): 6 Walk 50ft with 2 Turns (QC): 6 Walk 150 ft (QC): 6 Walking 10ft on Uneven Surface: 6 1 Step (curb) (QC): 6 4 Steps (QC): 6 12 Steps (QC): 6 Picking up an Object (QC): 6 Does the Pt use WC or Scooter?: No Type: N/A Type: N/A PT Plan Problem List Problem List: Activity Tolerance, Functional Strength, Safety, Balance, Gait, Transfer Treatment/Plan Treatment Plan: Continue Plan of Care Treatment Plan: Education, Functional Activity Karo, Functional Strength, Group Therapy, Gait, Safety, Therapeutic Exercise, Transfers Treatment Duration: Apr 03, 2019 Frequency: Modified Program (IRF) Estimated Hrs Per Day: 1.5 hours per day Patient and/or Family Agrees t: Yes Safety Risks/Education Patient Education: Gait Training, Transfer Techniques, Steps, Correct Positioning, Safety Issues Teaching Recipient: Patient Teaching Methods: Demonstration, Discussion Response to Teaching: Return Demonstration, Reinforcement Needed Time/GCodes Time In: 1235 Time Out: 1250 Total Billed Treatment Time: 15 Total Billed Treatment 1 visit FA 15' SHARLA FISHMAN TABLE GAMES DUAL RATE SUPERVISOR Mar 27, 2019 12:56 POS
--- NOTE | 2019-03-27 12:58 | NUR ---
Received dietary consult for updated TF recommendations for bolus feeds. Would recommend the followin can Jevity 1.5 x6 bolus feeds per day. Provides 2130 kcal (24 kcal/kg); 91 g Pro (1.0 g Pro/kg); 1080 ml free water. Flush with 60 ml H2O before and after bolus feeds. With flushes, provides 1800 ml free water. Will continue to follow and reassess as pt needs and status change. Ric Hess MS, KRISHNA, SHIVANI Addendum: 03/28/19 at [address] Schedule of bolus feeds: q3h (0600, 0900, 1200, 1500, 1800, 2100) Ric Hess MS, KRISHNA, SHIVANI
--- NOTE | 2019-03-27 14:19 | Speech Therapy Daily Note ---
Speech Daily Progress Note Subjective Date Seen by Provider: Mar 27, 2019 Time Seen by Provider: 00:30 Patient was resting in his bed when I entered his room. Objective Patient completed memory tasks with 95% given minimal cues. Assessment Assessment Current Status: Good Progress Treatment Plan Continue Plan of Care Speech Short Term Goals Short Term Goals Short Term Goals 1) The patient will complete memory tasks related to his daily needs at 90% or greater. 2) The patient will complete safety awareness tasks related to his daily needs at 90% or greater. 3) The patient will complete problem solving tasks related to his daily needs at 90% or greater. Speech Loan Funder Goals Skilled Nursing Goals The patient will improve cognitive-communication necessary for safety and daily living tasks with minimal assist. Speech-Plan Patient/Family Goals Patient/Family Goals: Patient plans on moving in with his exwife post rehab until he is strong enough to return home. Treatment Plan Speech Therapy Treatment Plan: Continue Plan of Care Patient is scheduled for an MBS this week prior to returning home. Treatment Duration: Mar 31, 2019 Frequency: 5 times per week Estimated Hrs Per Day: .5 hour per day Rehab Potential: Good Barriers to Learning: Patient has cognitive deficits from his recent illness. Pt/Family Agrees to Plan: Yes Safety Risks/Education Teaching Recipient: Patient Teaching Methods: Demonstration, Discussion Response to Teaching: Verbalize Understanding, Return Demonstration Education Topics Provided: Continued safety within the unit. Time Speech Therapy Time In: 13:00 Speech Therapy Time Out: 13:30 Total Billed Time: 30 Billed Treatment Time 1[address] Mar 27, 2019 14:19 POS
--- NOTE | 2019-03-27 14:50 | Occupational Ther Daily Note ---
OT Current Status-Daily Note Subjective Pt alert and willing to participate with afternoon OT session. Pt requested to remain in his bedroom as he had visitors present. ADL-Treatment Therapy Code Descriptions/Definitions Functional [place] Measure: 0=Not Assessed/NA 4=Minimal Assistance 1=Total Assistance 5=Supervision or Setup 2=Maximal Assistance 6=Modified [place] 3=Moderate Assistance 7=Complete IndependenceSCALE: Activities may be completed with or without assistive devices. 6-Kzlhjogelu-qloiiuo completes the activity by him/herself with no assistance from a helper. 5-Set-up or Clean-up Assistance-helper sets up or cleans up; patient completes activity. [place] assists only prior to or following the activity. 4-Supervision or Touching Assistance-helper provides verbal cues and/or touching/steadying and/or contact guard assistance as patient completes activity. Assistance may be provided throughout the activity or intermittently. 3-Partial/Moderate Assistance-helper does LESS THAN HALF the effort. [place] lifts, holds or supports trunk or limbs, but provides less than half the effort. 2-Substantial/Maximal Assistance-helper does MORE THAN HALF the effort. [place] lifts or holds trunk or limbs and provides more than half the effort. 9-Rbqeaukvo-qaeyqj does ALL the effort. Patient does none of the effort to complete the activity. Or, the assistance of 2 or more helpers is required for the patient to complete the activity. If activity was not attempted, code reason: 7-Patient Refused. 9-Not Applicable-not attempted and the patient did not perform the activity before the current illness, exacerbation or injury. 10-Not Attempted due to Environmental Limitations-(lack of equipment, weather restraints, etc.). 88-Not Attempted due to Medical Conditions or Safety Concerns. Other Treatment Pt participated in BUE ther ex with use of red theraband through gross UE planes of motion, with pt educated on proper movement patterns and techniques. Pt with no complaints of pain or fatigue throughout UE ther ex. Pt participated in high level dynamic standing balance challenge through bending/reaching to floor and overhead to address coordination and balance training. Pt with no LOB, and required SBA for safety throughout high level standing balance challenges. Education OT Patient Education: Exercise program Teaching Recipient: Patient Teaching Methods: Discussion Response to Teaching: Verbalize Understanding OT Mineral Mixer Goals Mineral Mixer Goals Time Frame: Apr 06, 2019 Eating (QC): 6 Oral Hygiene (QC): 6 Toileting Hygiene (QC): 6 Shower/Bathe Self (QC): 6 Upper Body Dressing (QC): 6 Lower Body Dressing (QC): 6 On/Off Footwear (QC): 6 Additional Goals: 1-Demonstrate ADL Tasks, 2-Verbalize Understanding, 3- ImproveStrength/Karo 1=Demonstrate adherence to instructed precautions during ADL tasks. 2=Patient will verbalize/demonstrate understanding of assistive devices/modifications for ADL. 3=Patient will improve strength/tolerance for activity to enable patient to perform ADL's. OT Education/Plan Discharge Recommendations Plan/Recommendations: Continue POC Treatment Plan/Plan of Care Patient would benefit from OT for education, treatment and training to promote independence in ADL's, mobility, safety and/or upper extremity function for ADL's. Plan of Care: ADL Retraining, Functional Mobility, UE Funct Exercise/Act Treatment Duration: Apr 06, 2019 Frequency: At least 5 of 7 days/Wk (IRF) Estimated Hrs Per Day: 1.5 hours per day Agreement: Yes Rehab Potential: Good Time/GCodes Start Time: 14:20 Stop Time: 14:50 Total Time Billed (hr/min): 30 Billed Treatment Time 1, EX1, FA1 [facility] OT Mar 27, 2019 14:50 POS
[2019-03-27 16:01] VITALS: BP 108/71
[2019-03-27] MEDS: MELATONIN 3 MG TABLET PO SCH (21:48)
[2019-03-28 06:08] VITALS: BP 106/74
[2019-03-28] MEDS: APAP 325 MG/10.15 ML LIQ (TYLENOL) UDC PO SCH ×4 (06:11→23:35)
[2019-03-28] MEDS: PANTOPRAZOLE 2 MG/ML LIQUID 200 ML (PROTONIX) NG SCH ×3 (06:11)
[2019-03-28] MEDS: DOCUSATE SODIUM 10 MG/ML 10 ML UDC (COLACE) NG SCH ×2 (09:12→20:42)
[2019-03-28] MEDS: SENNA W/DOCUSATE (SENOKOT S) TABLET PO SCH ×2 (09:13→20:42)
[2019-03-28] MEDS: POLYETHYLENE GLYCOL 17 GM (MIRALAX) PACK PO SCH ×2 (09:13→21:29)
[2019-03-28] MEDS: FOLIC ACID 1 MG TAB PO SCH (09:27)
[2019-03-28] MEDS: METHOCARBAMOL 500 MG (ROBAXIN) TABLET PO SCH ×2 (09:27→20:41)
[2019-03-28] MEDS: LEVETIRACETAM 500 MG/ 5 ML UDC ORAL SOLN (KEPPRA) NG SCH ×2 (09:28→20:41)
[2019-03-28] MEDS: doxAzosin 4 MG (CARDURA) TAB NG SCH (09:29)
[2019-03-28] MEDS: FLUoxetine HCL 20 MG (PROzac) CAP PO SCH (09:29)
--- NOTE | 2019-03-28 09:46 | PM&R Progress Note ---
Subjective HPI/CC On Admission Date Seen by Provider: Mar 28, 2019 Time Seen by Provider: 08:30 Subjective/Events-last exam Pt doing pretty well but seems to have a very flat affect and very difficult to draw out and converse Scopolamine patch is difficult to say whether it is helping or not will maintain it every 3 days Denies any significant pain Tube feedings transition to bolus feeds and that seems to be working pretty well for him and no nausea Wants to go home Conferred with RN Reviewed therapy notes Checked meds and labs Review of Systems HEENT: Dysphasia Objective Exam Vital Signs Vital Signs Date Time Temp Pulse Resp B/P (MAP) Pulse Ox O2 Delivery O2 Flow Rate FiO2 03/28/19 06:08 36.3 69 16 106/74 (85) 97 Room Air Capillary Refill : General Appearance: No Apparent Distress, WD/WN HEENT: PERRL/EOMI, Normal ENT Inspection, Pharynx Normal Neck: Full Range of Motion, Normal Inspection, Non Tender, Supple, Carotid Bruit Respiratory: Chest Non Tender, Lungs Clear, Normal Breath Sounds, No Accessory Muscle Use, No Respiratory Distress Cardiovascular: Regular Rate, Rhythm, No Edema, No Gallop, No JVD, No Murmur, Normal Peripheral Pulses Gastrointestinal: Normal Bowel Sounds, No Organomegaly, No Pulsatile Mass, Non Tender, Soft Back: Normal Inspection, No CVA Tenderness, No Vertebral Tenderness Extremity: Normal Capillary Refill, Normal Inspection, Normal Range of Motion, Non Tender, No Calf Tenderness, No Pedal Edema Neurologic/Psychiatric: Alert, Oriented x3, No Motor/Sensory Deficits, tool salvage worker II- XII Norm as Tested, Depressed Affect, Motor Weakness (fine motor skills), Other (memory loss noted) Skin: Normal Color, Warm/Dry Lymphatic: No Adenopathy Results/Procedures Lab Patient resulted labs reviewed. FIM Transfers Therapy Code Descriptions/Definitions Functional [place] Measure: 0=Not Assessed/NA 4=Minimal Assistance 1=Total Assistance 5=Supervision or Setup 2=Maximal Assistance 6=Modified [place] 3=Moderate Assistance 7=Complete IndependenceSCALE: Activities may be completed with or without assistive devices. 4-Qpakwhqwld-jmerfce completes the activity by him/herself with no assistance from a helper. 5-Set-up or Clean-up Assistance-helper sets up or cleans up; patient completes activity. [place] assists only prior to or following the activity. 4-Supervision or Touching Assistance-helper provides verbal cues and/or touching/steadying and/or contact guard assistance as patient completes activity. Assistance may be provided throughout the activity or intermittently. 3-Partial/Moderate Assistance-helper does LESS THAN HALF the effort. [place] lift s, holds or supports trunk or limbs, but provides less than half the effort. 2-Substantial/Maximal Assistance-helper does MORE THAN HALF the effort. [place] lifts or holds trunk or limbs and provides more than half the effort. 6-Swlpdbnhy-kalzsf does ALL the effort. Patient does none of the effort to complete the activity. Or, the assistance of 2 or more helpers is required for the patient to complete the activity. If activity was not attempted, code reason: 7-Patient Refused. 9-Not Applicable-not attempted and the patient did not perform the activity before the current illness, exacerbation or injury. 10-Not Attempted due to Environmental Limitations-(lack of equipment, weather restraints, etc.). 88-Not Attempted due to Medical Conditions or Safety Concerns. Roll Left to Right (QC): 6 Sit to Lying (QC): 6 Sit to Stand (QC): 6 Chair/Ury-lv-Fpwse Xfer(QC): 6 Car Transfer (QC): 5 Gait Training Does the Patient Walk?: Yes Distance: 2000' Walk 10 feet (QC): 6 Walk 50 ft with 2 Turns(QC): 6 Walk 150 ft (QC): 6 Walking 10ft/uneven surface-QC: 6 Gait Assistive Device: None Wheelchair Training Does the Pt Use a Wheelchair?: No Wheel 50 ft with 2 turns (QC): 9 Wheel 150 ft (QC): 9 Type of Wheelchair: Manual Stair Training Stair Training: Handrails/: No handrail #of Steps: 5 1 Step (curb) (QC): 6 4 Steps (QC): 6 12 Steps (QC): 6 Stairs: Pattern: Reciprocal Balance Picking up an Object (QC): 6 (pt reaches down to fix shoe and back up) ADL-Treatment Eating (QC): 88 (PEG tube) Oral Hygiene (QC): 6 Shower/Bathe Self (QC): 5 (Pt performed bathing tasks with SBA for safety. ) Upper Body Dressing (QC): 5 (SBA for safety. ) Lower Body Dressing (QC): 5 (SBA for safety.) On/Off Footwear (QC): 5 (Set up) Toileting Hygiene (QC): 5 (SBA for safety. ) Toilet Transfer (QC): 5 (SBA for safety. 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
[2019-03-28] MEDS ORDERED: SCOPOLAMINE PATCH REMOVAL TP SCH (11:00)
--- NOTE | 2019-03-28 11:37 | Occupational Ther Daily Note ---
OT Current Status-Daily Note Subjective Pt in bed, agrees to therapy. Pt denies pain. States he wants to go home. ADL-Treatment Pt requests shower this morning, has already gathered supplies and placed in restroom without assist. Pt supine to sit without assist. Gait to restroom without AD, no LOB noted. Pt doffed clothing independently. Transfer to walk in shower without assist. Pt completed all bathing tasks independently. Don pullover shirt independently. Pt donned pants, socks and shoes without assist. Stood at sink to complete oral care without assist. Pt demonstrated ability to perform toilet transfer independently. Pt states he has been completing toileting tasks without assist. Therapy Code Descriptions/Definitions Functional [place] Measure: 0=Not Assessed/NA 4=Minimal Assistance 1=Total Assistance 5=Supervision or Setup 2=Maximal Assistance 6=Modified [place] 3=Moderate Assistance 7=Complete IndependenceSCALE: Activities may be completed with or without assistive devices. 8-Andjrwznxn-eyevxbx completes the activity by him/herself with no assistance from a helper. 5-Set-up or Clean-up Assistance-helper sets up or cleans up; patient completes activity. [place] assists only prior to or following the activity. 4-Supervision or Touching Assistance-helper provides verbal cues and/or touching/steadying and/or contact guard assistance as patient completes activity. Assistance may be provided throughout the activity or intermittently. 3-Partial/Moderate Assistance-helper does LESS THAN HALF the effort. [place] lifts, holds or supports trunk or limbs, but provides less than half the effort. 2-Substantial/Maximal Assistance-helper does MORE THAN HALF the effort. [place] lifts or holds trunk or limbs and provides more than half the effort. 0-Dhcmenqrk-lhfxmq does ALL the effort. Patient does none of the effort to complete the activity. Or, the assistance of 2 or more helpers is required for the patient to complete the activity. If activity was not attempted, code reason: 7-Patient Refused. 9-Not Applicable-not attempted and the patient did not perform the activity before the current illness, exacerbation or injury. 10-Not Attempted due to Environmental Limitations-(lack of equipment, weather restraints, etc.). 88-Not Attempted due to Medical Conditions or Safety Concerns. Eating (QC): 88 (tube feeding) Oral Hygiene (QC): 6 Shower/Bathe Self (QC): 6 Upper Body Dressing (QC): 6 Lower Body Dressing (QC): 6 Toileting Hygiene (QC): 6 Toilet Transfer (QC): 6 Other Treatment Pt requests to go outside, RUPERT bruner. Pt ambulated without assistive device. Pt entered and exited elevator independently. Ambulated outside on sidewalk, grass, and slopes without LOB. Pt went down steps using hand rail and up/down curb independently. Pt did not require rest break during mobility tasks. Pt states it feels good to be outside. Pt returned to therapy gym and completed arm bike x10 minutes to increase overall strength and activity tolerance needed for functional task completion. Pt performed task with moderate resistance and steady pace. One rest break taken. Pt returned to room, sitting in chair with needs met after session. OT Shelter Goals Emergency Medicine Physician Goals Time Frame: Apr 06, 2019 Eating (QC): 6 Oral Hygiene (QC): 6 Toileting Hygiene (QC): 6 Shower/Bathe Self (QC): 6 Upper Body Dressing (QC): 6 Lower Body Dressing (QC): 6 On/Off Footwear (QC): 6 Additional Goals: 1-Demonstrate ADL Tasks, 2-Verbalize Understanding, 3- ImproveStrength/Karo 1=Demonstrate adherence to instructed precautions during ADL tasks. 2=Patient will verbalize/demonstrate understanding of assistive devices/modifications for ADL. 3=Patient will improve strength/tolerance for activity to enable patient to perform ADL's. OT Education/Plan Discharge Recommendations Plan/Recommendations: Continue POC Treatment Plan/Plan of Care Patient would benefit from OT for education, treatment and training to promote independence in ADL's, mobility, safety and/or upper extremity function for ADL's. Plan of Care: ADL Retraining, Functional Mobility, UE Funct Exercise/Act Treatment Duration: Apr 06, 2019 Frequency: At least 5 of 7 days/Wk (IRF) Estimated Hrs Per Day: 1.5 hours per day Agreement: Yes Rehab Potential: Good Time/GCodes Start Time: 09:30 Stop Time: 10:45 Total Time Billed (hr/min): 75 Billed Treatment Time 1 visit, ADLx3(40minutes), FA(20minutes), EX(15minutes) SANNA BATES OT Mar 28, 2019 11:37 POS
--- NOTE | 2019-03-28 12:27 | NUR ---
Speech Tx called & stated that pt passed his swallow study, diet can be advanced to Dysphagia 2 w thin liquids.
[2019-03-28] MEDS: SCOPOLAMINE 1.5 MG (TRANSDERM-SCOP) PATCH TD SCH (13:02)
--- NOTE | 2019-03-28 13:14 | Physical Therapy Daily Note ---
PT Daily Note-Current Subjective Patient sitting EOB pre tx, agrees to PT, no complaints of pain. Appearance Patient in room post tx with nurse call, phone, tray, all needs met, patient ambulates in room independently. Mental Status Patient Orientation: Normal For Age Attachments: PEG Tube Transfers SCALE: Activities may be completed with or without assistive devices. 6-Dihethnsce-wohcztf completes the activity by him/herself with no assistance from a helper. 5-Set-up or Clean-up Assistance-helper sets up or cleans up; patient completes activity. [place] assists only prior to or following the activity. 4-Supervision or Touching Assistance-helper provides verbal cues and/or touching/steadying and/or contact guard assistance as patient completes activity. Assistance may be provided throughout the activity or intermittently. 3-Partial/Moderate Assistance-helper does LESS THAN HALF the effort. [place] lifts, holds or supports trunk or limbs, but provides less than half the effort. 2-Substantial/Maximal Assistance-helper does MORE THAN HALF the effort. [place] lifts or holds trunk or limbs and provides more than half the effort. 6-Wsmyejrui-dcfeuy does ALL the effort. Patient does none of the effort to complete the activity. Or, the assistance of 2 or more helpers is required for the patient to complete the activity. If activity was not attempted, code reason: 7-Patient Refused. 9-Not Applicable-not attempted and the patient did not perform the activity before the current illness, exacerbation or injury. 10-Not Attempted due to Environmental Limitations-(lack of equipment, weather restraints, etc.). 88-Not Attempted due to Medical Conditions or Safety Concerns. Roll Left & Right (QC): 6 Sit to Lying (QC): 6 Lying to Sitting/Side of Bed(Q: 6 Sit to Stand (QC): 6 Chair/Drp-dp-Phbgl Xfer(QC): 6 Toilet Transfer (QC): 6 Car Transfer (QC): 6 No LOB with transfers, good safety awareness. Gait Training Distance: 2000' Walk 10 feet (QC): 6 Walk 50 ft with 2 Turns(QC): 6 Walk 150 ft (QC): 6 Walking 10ft/uneven surface-QC: 6 Gait Assistive Device: None Patient ambulates independently, no LOB or unsteadiness, slight SOB but recovers quickly with standing rest break. Wheelchair Training Does the Pt Use a Wheelchair?: No Stair Training Stair Training: Handrails/: No handrail #of Steps: 12 1 Step (curb) (QC): 6 4 Steps (QC): 6 12 Steps (QC): 6 Stairs: Pattern: Reciprocal Exercises NuStep Minutes: 15 NuStep Workload: 5 Neuromuscular Patient scored a 55/56 on the Henry Balance Scale. Treatments bed mobility and transfers, ambulation, LE exercise, balance Assessment Current Status: Fair Progress Patient is independent with all mobility. PT Short Term Goals Short Term Goals Time Frame: Mar 27, 2019 Walk 150 feet: 5 12 steps: 5 PT Surgical Technician Goals Surgical Technician Goals PT Surgical Technician Goals Time Frame: Apr 03, 2019 Roll Left & Right (QC): 6 Sit to Lying (QC): 6 Lying-Sitting on Side/Bed(QC): 6 Sit to Stand (QC): 6 Chair/Qfy-xr-Gddwg Xfer(QC): 6 Toilet Transfer (QC): 6 Car Transfer (QC): 6 Does the Patient Walk: Yes Walk 10 feet (QC): 6 Walk 50ft with 2 Turns (QC): 6 Walk 150 ft (QC): 6 Walking 10ft on Uneven Surface: 6 1 Step (curb) (QC): 6 4 Steps (QC): 6 12 Steps (QC): 6 Picking up an Object (QC): 6 Does the Pt use WC or Scooter?: No Type: N/A Type: N/A PT Plan Problem List Problem List: Activity Tolerance, Functional Strength, Safety, Balance, Gait, Transfer Treatment/Plan Treatment Plan: Continue Plan of Care Treatment Plan: Education, Functional Activity Karo, Functional Strength, Group Therapy, Gait, Safety, Therapeutic Exercise, Transfers Treatment Duration: Apr 03, 2019 Frequency: Modified Program (IRF) Estimated Hrs Per Day: 1.5 hours per day Patient and/or Family Agrees t: Yes Safety Risks/Education Patient Education: Gait Training, Transfer Techniques, Steps, Correct Positioning, Safety Issues Teaching Recipient: Patient Teaching Methods: Demonstration, Discussion Response to Teaching: Reinforcement Needed Time/GCodes Time In: 1100 Time Out: 1200 Total Billed Treatment Time: 60 Total Billed Treatment 1 visit GT 20' EX 15' NM 15' FA 10' ADILENE YU PT Mar 28, 2019 13:13 POS
--- NOTE | 2019-03-28 13:16 | Diagnostic Imaging Report ---
Modified barium swallow. Indication: Dysphagia, headache. There are no prior studies available for comparison. This exam is performed in the presence of a speech pathologist, Marcela. The patient was given barium in different substances to swallow. This included honey, nectar, thin barium, applesauce, pear, ham and barium on a cracker. The patient was able to swallow the material without difficulty. There is no sign of aspiration or penetration. During the course of the exam a radiopaque rounded density was seen in the region of the suprasellar cistern on the right. Reportedly the patient has had an aneurysm coiling related to the subarachnoid hemorrhage noted on previous CT head exam of 03/01/2019. Impression: The swallowing mechanism is within normal limits. There is no evidence for aspiration or penetration. Dictated by: Dictated on workstation # [id number]
--- NOTE | 2019-03-28 13:33 | ST Mod Barium Swallow ---
Speech Evaluation-General Medical Diagnosis Subarrachnoid Hemorrhage Onset Date: Mar 01, 2019 Therapy Diagnosis Therapy Diagnosis: Oropharyngeal Dysphagia Precautions Precautions: Aspiration Precautions/Isolations: Aspiration Referral Referring Physician: Dr. Garcia Medical History Reviewed History: Yes Social History Home: Single Level Current Living Status: Friend Speech Mod Barium Swallow Prior Level of Function Patient was able to eat/drink anything he wanted prior to the Subarrachnoid Hemmorhage. Patient was placed on a PEG on 03/20/19 due to inability to swallow adequate nutrition/hydration. Oral Motor Skills Dentition Natural Dentures: Full Lingual Protrusion: Normal Lingual ROM: Normal Lingual Strength: Normal Velum: Normal Volitional Dry Swallow: Yes Gag Reflex: Yes Voluntary Cough: Yes Can Clear Throat Volitionally: Yes Textures-Lateral View Lateral View Food Presentation: Thin Liquid via Spoon, Thin Liquid via Straw, [place] Liquid via Spoon, Honey Liquid via Spoon, Pureed Solids, Ground Solids, Mechanial Soft Solids, Regular Solids Oral Phase Labial Closure: No Impairment (WFL) Bolus Formation Pooling L/R: No Impairment (WFL) Bolus Formation Placement: No Impairment (WFL) Mastication Rotary Chew: No Impairment (WFL) A/P Lingual Propulsion: No Impairment (WFL) Lingual Movement: No Impairment (WFL) Oral Phase Residue: No Impairment (WFL) Oral phase is within functional limits. Pharyngeal Phase Swallow Response: No Impairment (WFL) Base of Tongue: No Impairment (WFL) Epiglottic Movement: No Impairment (WFL) Laryngeal Elevation: No Impairment (WFL) Vallecular Residue: Swallow to Clear Pharyngeal Wall Residue: Swallow to Clear Piriform Sinus Residue: Swallow to Clear Laryngeal Penetration: None Aspiration Observations: None Other Pharyngeal Observations: Pharyngeal phase is within normal range of function. Esophageal Phase Peristalsis: WFL A/P Esophageal Propulsion Time: Less Than 5 Seconds Normal Performed-A/P View Not Applicable/Performed Summary/Impressions Patient is a pleasant 44 year old male who was admitted to the ARU s/p Subarrachnoid Hemmorhage. Patient was placed on a PEG at prior to admit on 03/20/19. Patient was unable to sustain adequate nutrition/hydration via safe swallow function. The follow up MBS this date indicated a normal swallow with all consistencies. Patient was noted to be able to clear more efficiently with head turned to the right. Patient also utilized second dry swallow which was effective in clearing residue. Patient is recommended for a Dysphagia II diet level with thin as tolerated. Patient will continue on PEG feedings until he is able to consume adequately for nutrition/hydration. These recommendations were provided for his nurse. Speech Short Term Goals Short Term Goals Short Term Goals 1) The patient will complete memory tasks related to his daily needs at 90% or greater. 2) The patient will complete safety awareness tasks related to his daily needs at 90% or greater. 3) The patient will complete problem solving tasks related to his daily needs at 90% or greater. 4) The patient will tolerate least restrictive diet level without s/s of aspiration at 90% or greater. 5) The patient will utilize compensatory strategies as trained for safety of oral intake given minimal cues at 90% or greater. 6) The patient will progress to oral intake for nutrition/hydration without PEG intake at 90% or greater. Speech [facility] Goals Senior Receptionist Goals The patient will improve cognitive-communication necessary for safety and daily living tasks with minimal assist. The patient will maintain adequate nutrition/hydration via oral and/or PEG. Speech-Plan Patient/Family Goals Patient/Family Goals: The patient plans on returning home upon rehab discharge. Treatment Plan Speech Therapy Treatment Plan: Continue Plan of Care Patient will continue with skilled ST. Treatment Duration: Mar 31, 2019 Frequency: 5 times per week Estimated Hrs Per Day: .5 hour per day Rehab Potential: Good Barriers to Learning: Mild cognitive deficits, however these are resolving very well. Pt/Family Agrees to Plan: Yes Safety Risks/Education Teaching Recipient: Patient Teaching Methods: Demonstration, Discussion Response to Teaching: Verbalize Understanding, Return Demonstration Education Topics Provided: Safety of oral intake and diet level. Time Speech Therapy Time In: 12:00 Speech Therapy Time Out: 12:30 Total Billed Time: 30 Billed Treatment Time 1, MOD No ELIZABETH GUPTA Mar 28, 2019 13:33 POS
--- NOTE | 2019-03-28 14:41 | Physical Therapy Daily Note ---
PT Daily Note-Current Subjective pt sitting EOB pre-tx agrees to therapy and denies pain. Appearance pt standing at sink in room washing his hands. all needs met at this time. Mental Status Patient Orientation: Person, Place, Time, Situation Attachments: PEG Tube Transfers SCALE: Activities may be completed with or without assistive devices. 4-Ylaivalomi-nkngitu completes the activity by him/herself with no assistance from a helper. 5-Set-up or Clean-up Assistance-helper sets up or cleans up; patient completes activity. [place] assists only prior to or following the activity. 4-Supervision or Touching Assistance-helper provides verbal cues and/or touching/steadying and/or contact guard assistance as patient completes activity. Assistance may be provided throughout the activity or intermittently. 3-Partial/Moderate Assistance-helper does LESS THAN HALF the effort. [place] lifts, holds or supports trunk or limbs, but provides less than half the effort. 2-Substantial/Maximal Assistance-helper does MORE THAN HALF the effort. [place] lifts or holds trunk or limbs and provides more than half the effort. 5-Rukkfuquc-bfeclu does ALL the effort. Patient does none of the effort to complete the activity. Or, the assistance of 2 or more helpers is required for the patient to complete the activity. If activity was not attempted, code reason: 7-Patient Refused. 9-Not Applicable-not attempted and the patient did not perform the activity before the current illness, exacerbation or injury. 10-Not Attempted due to Environmental Limitations-(lack of equipment, weather restraints, etc.). 88-Not Attempted due to Medical Conditions or Safety Concerns. Sit to Stand (QC): 6 Gait Training Distance: 5000' Walk 10 feet (QC): 6 Walk 50 ft with 2 Turns(QC): 6 Walk 150 ft (QC): 6 Walking 10ft/uneven surface-QC: 6 Gait Assistive Device: None pt ambulated around the hospital campus outside across terrain including: grass, carpet, concrete, small hills, steps, curbs. Wheelchair Training Does the Pt Use a Wheelchair?: No Treatments pt performed skilled ambulation training, high level balance training, and education Assessment Current Status: Excellent Progress pt continues to ambulate independently with therapy while challenging the pt's balance with high level balance obstacles. Pts diet has been upgraded and pt is very pleased to get to eat food and is motivated to get home. pt reports at this time he thinks that he is still just having problems with his high level balance as well as his usp activity kemar but feels like he is still progressing. PT Short Term Goals Short Term Goals Time Frame: Mar 27, 2019 Walk 150 feet: 5 12 steps: 5 PT Tentmaker Goals Tentmaker Goals PT Tentmaker Goals Time Frame: Apr 03, 2019 Roll Left & Right (QC): 6 Sit to Lying (QC): 6 Lying-Sitting on Side/Bed(QC): 6 Sit to Stand (QC): 6 Chair/Wpj-sl-Qjdqj Xfer(QC): 6 Toilet Transfer (QC): 6 Car Transfer (QC): 6 Does the Patient Walk: Yes Walk 10 feet (QC): 6 Walk 50ft with 2 Turns (QC): 6 Walk 150 ft (QC): 6 Walking 10ft on Uneven Surface: 6 1 Step (curb) (QC): 6 4 Steps (QC): 6 12 Steps (QC): 6 Picking up an Object (QC): 6 Does the Pt use WC or Scooter?: No Type: N/A Type: N/A PT Plan Problem List Problem List: Activity Tolerance, Functional Strength, Safety, Balance, Gait, Transfer, Bed Mobility, ROM Treatment/Plan Treatment Plan: Continue Plan of Care Treatment Plan: Education, Functional Activity [place], Functional Strength, Group Therapy, Gait, Safety, Therapeutic Exercise, Transfers Treatment Duration: Apr 03, 2019 Frequency: Modified Program (IRF) Estimated Hrs Per Day: 1.5 hours per day Patient and/or Family Agrees t: Yes Safety Risks/Education Patient Education: Gait Training, Transfer Techniques, Steps, Correct Positioning, Safety Issues Teaching Recipient: Patient Teaching Methods: Demonstration, Discussion Response to Teaching: Return Demonstration, Reinforcement Needed Time/GCodes Time In: 1330 Time Out: 1345 Total Billed Treatment Time: 15 Total Billed Treatment 1 visit GT 15' ADILENE YU PT Mar 28, 2019 14:41 POS
[2019-03-28 16:11] VITALS: BP 137/81
--- NOTE | 2019-03-28 17:34 | NUR ---
This RN notified Dr. Garcia that patient passed his swallow evaluation and his diet has been advanced to dysphagia II with thin liquids. This RN noted to Dr. garcia that patient is tolerating advance in diet very well and that patient is requesting for his tube feedings to be stopped. Dr. Garcia states, "yes." Will input order into computer and notify patient of orders to stop tube feedings. Will continue to monitor patient.
[2019-03-28] MEDS: MELATONIN 3 MG TABLET PO SCH (20:41)
[2019-03-29 05:40] VITALS: BP 111/73
[2019-03-29] MEDS: APAP 325 MG/10.15 ML LIQ (TYLENOL) UDC PO SCH (06:40)
--- NOTE | 2019-03-29 08:42 | PM&R Progress Note ---
Subjective HPI/CC On Admission Date Seen by Provider: Mar 29, 2019 Time Seen by Provider: 08:45 Subjective/Events-last exam Pt doing pretty well but seems to have a very flat affect and very difficult to draw out and converse Scopolamine patch is difficult to say whether it is helping or not will maintain it every 3 days Denies any significant pain Tube feedings transition to bolus feeds and that seems to be working pretty well for him and no nausea Wants to go home Conferred with RN Reviewed therapy notes Checked meds and labs Objective Exam Vital Signs Vital Signs Date Time Temp Pulse Resp B/P (MAP) Pulse Ox O2 Delivery O2 Flow Rate FiO2 03/29/19 05:40 36.8 59 16 111/73 (86) 99 Room Air Capillary Refill : General Appearance: No Apparent Distress, WD/WN HEENT: PERRL/EOMI, Normal ENT Inspection, Pharynx Normal Neck: Full Range of Motion, Normal Inspection, Non Tender, Supple, Carotid Bruit Respiratory: Chest Non Tender, Lungs Clear, Normal Breath Sounds, No Accessory Muscle Use, No Respiratory Distress Cardiovascular: Regular Rate, Rhythm, No Edema, No Gallop, No JVD, No Murmur, Normal Peripheral Pulses Gastrointestinal: Normal Bowel Sounds, No Organomegaly, No Pulsatile Mass, Non Tender, Soft Back: Normal Inspection, No CVA Tenderness, No Vertebral Tenderness Extremity: Normal Capillary Refill, Normal Inspection, Normal Range of Motion, Non Tender, No Calf Tenderness, No Pedal Edema Neurologic/Psychiatric: Alert, Oriented x3, No Motor/Sensory Deficits, cytology supervisor II- XII Norm as Tested, Depressed Affect, Motor Weakness (fine motor skills), Other (memory loss noted) Skin: Normal Color, Warm/Dry Lymphatic: No Adenopathy Results/Procedures Lab Patient resulted labs reviewed. FIM Transfers Therapy Code Descriptions/Definitions Functional [place] Measure: 0=Not Assessed/NA 4=Minimal Assistance 1=Total Assistance 5=Supervision or Setup 2=Maximal Assistance 6=Modified [place] 3=Moderate Assistance 7=Complete IndependenceSCALE: Activities may be completed with or without assistive devices. 3-Uudlprzrez-tboxyue completes the activity by him/herself with no assistance from a helper. 5-Set-up or Clean-up Assistance-helper sets up or cleans up; patient completes activity. [place] assists only prior to or following the activity. 4-Supervision or Touching Assistance-helper provides verbal cues and/or touching/steadying and/or contact guard assistance as patient completes activity. Assistance may be provided throughout the activity or intermittently. 3-Partial/Moderate Assistance-helper does LESS THAN HALF the effort. [place] lifts, holds or supports trunk or limbs, but provides less than half the effort. 2-Substantial/Maximal Assistance-helper does MORE THAN HALF the effort. [place] lifts or holds trunk or limbs and provides more than half the effort. 3-Afxxllmfp-lasgbs does ALL the effort. Patient does none of the effort to complete the activity. Or, the assistance of 2 or more helpers is required for the patient to complete the activity. If activity was not attempted, code reason: 7-Patient Refused. 9-Not Applicable-not attempted and the patient did not perform the activity before the current illness, exacerbation or injury. 10-Not Attempted due to Environmental Limitations-(lack of equipment, weather restraints, etc.). 88-Not Attempted due to Medical Conditions or Safety Concerns. Roll Left to Right (QC): 6 Sit to Lying (QC): 6 Sit to Stand (QC): 6 Chair/Epy-ua-Spigq Xfer(QC): 6 Car Transfer (QC): 6 Gait Training Does the Patient Walk?: Yes Distance: 5000' Walk 10 feet (QC): 6 Walk 50 ft with 2 Turns(QC): 6 Walk 150 ft (QC): 6 Walking 10ft/uneven surface-QC: 6 Gait Assistive Device: None Wheelchair Training Does the Pt Use a Wheelchair?: No Wheel 50 ft with 2 turns (QC): 9 Wheel 150 ft (QC): 9 Type of Wheelchair: Manual Stair Training Stair Training: Handrails/: No handrail #of Steps: 12 1 Step (curb) (QC): 6 4 Steps (QC): 6 12 Steps (QC): 6 Stairs: Pattern: Reciprocal Balance Picking up an Object (QC): 6 (pt reaches down to fix shoe and back up) ADL-Treatment Eating (QC): 88 (tube feeding) Oral Hygiene (QC): 6 Shower/Bathe Self (QC): 6 Upper Body Dressing (QC): 6 Lower Body Dressing (QC): 6 On/Off Footwear (QC): 5 (Set up) Toileting Hygiene (QC): 6 Toilet Transfer (QC): 6 Assessment/Plan Assessment and Plan Assess & Plan/Chief Complaint Assessment: SAH Dysphagia Aspiration risk PEG Depression Former smoker Plan: IRF protocol ST Suction device for excessive saliva Scopolamine patch trial Transition to bolus feeds (1) Nontraumatic subarachnoid hemorrhage, unspecified (2) S/P percutaneous endoscopic gastrostomy (PEG) tube placement (3) Dysphagia (4) At risk for aspiration (5) 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
--- NOTE | 2019-03-29 09:33 | Therapy Team Discharge Summary ---
Therapy Discharge Summary Discharge Recommendations Date of Discharge 03/29/19 Physical Therapy This patient was admitted to ARU post lengthy hospital stay at [facility] due to a subarachnoid hemorrhage. 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 Upon admission to this unit, he was set up assist with all mobility with slight balance and safety deficits. Treatment focused on functional strengthening, balance training, safety and activity progression. He made excellent progress. He is indep with all mobiltiy and able to mobilize safely without concern for fall. Pt to discharge home this date. DC PT Occupational Therapy Decreased Activ Tolerance, Impaired I ADL's, Impaired Self-Care Skills PT Behavioral Health Specialist Goals Snf Goals PT Snf Goals Time Frame: Apr 03, 2019 Roll Left to Right (QC): 6 Sit to Lying (QC): 6 Lying-Sitting on Side/Bed(QC): 6 Sit to Stand (QC): 6 Chair/Lpz-vh-Kbdlj Xfer(QC): 6 Car Transfer (QC): 6 Does the Patient Walk: Yes Walk 10 feet (QC): 6 Walk 10ft-Uneven Surface(QC): 6 Walk 50ft with 2 Turns (QC): 6 Walk 150 ft (QC): 6 Does the Pt use WC or Scooter?: No 1 Step (curb) (QC): 6 4 Steps (QC): 6 12 Steps (QC): 6 Picking up an Object (QC): 6 all goals met OT Behavioral Health Specialist Goals Snf Goals Time Frame: Apr 06, 2019 Eating (FIM): 6 Eating (QC): 6 Oral Hygiene (QC): 6 Grooming(FIM): 6 Bathing(FIM): 6 Shower/Bathe Self (QC): 6 Upper Body Dressing(FIM): 6 Upper Body Dressing (QC): 6 Lower Body Dressing(FIM): 6 Lower Body Dressing (QC): 6 On/Off Footwear (QC): 6 Toileting(FIM): 6 Toileting Hygiene (QC): 6 Toilet/Commode Transfer (QC): 6 Additional Goals: 1-Demonstrate ADL Tasks, 2-Verbalize Understanding, 3- ImproveStrength/Karo 1=Demonstrate adherence to instructed precautions during ADL tasks. 2=Patient will verbalize/demonstrate understanding of assistive devices/modifications for ADL. 3=Patient will improve strength/tolerance for activity to enable patient to perform ADL's. Speech Snf Goals Behavioral Health Specialist Goals The patient will improve cognitive-communication necessary for safety and daily living tasks with minimal assist. The patient will maintain adequate nutrition/hydration via oral and/or PEG. TARA CARVALHO PT Mar 29, 2019 09:33 POS
[2019-03-29] MEDS: DOCUSATE SODIUM 10 MG/ML 10 ML UDC (COLACE) NG SCH (09:42)
[2019-03-29] MEDS: POLYETHYLENE GLYCOL 17 GM (MIRALAX) PACK PO SCH (09:43)
[2019-03-29] MEDS: SENNA W/DOCUSATE (SENOKOT S) TABLET PO SCH (09:43)
[2019-03-29] MEDS ORDERED: LEVETIRACETAM 1,000 MG (KEPPRA) TABLET PO SCH (09:45)
[2019-03-29] MEDS ORDERED: MECL-106 PO (09:53)
[2019-03-29] MEDS ORDERED: ONDA4TAB11 PO (09:53)
[2019-03-29] MEDS ORDERED: OXC5T PO (09:53)
[2019-03-29] MEDS ORDERED: LEVE10006 PO (09:53)
[2019-03-29] MEDS ORDERED: METH500T7 PO (09:53)
[2019-03-29] MEDS ORDERED: DOXA4TAB2 NG (09:53)
--- NOTE | 2019-03-29 09:53 | Discharge Summary ---
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 (6) Depression (7) Alcohol withdrawal Discharge Summary Discharge Physical Examination Allergies: Coded Allergies: No Known Drug Allergies (Unverified , 11/10/16) Vitals & I&Os Vital Signs Date Time Temp Pulse Resp B/P (MAP) Pulse Ox O2 Delivery O2 Flow Rate FiO2 03/29/19 11:45 03/29/19 08:20 Room Air 03/29/19 05:40 36.8 59 16 99 General Appearance: Alert, Oriented X3, Cooperative Respiratory: Clear to Auscultation Cardiovascular: Regular Rate Neuro: Normal Gait, Normal Speech, Strength at 5/5 X4 Ext Psych/Mental Status: Mental Status NL Hospital Course Was the Problem List Reviewed?: Yes Hospital Course: Pt had an uncomplicated 7 day hospital course after he was admitted for debility and dysphagia following a subarachnoid hemorrhage from . He was maintained on suction device due to hypersalivation and aspiration risk and he was able to prevent any aspiration. He participated in all therapy and was able to be advanced a soft diet by speech therapy and no aspiration risks noted. He was able to crush his meds, bowels were moving, we will provide peg tube care to be doing at home and he was deemed stable for DC with close follow up with Dr. Reynolds at [facility]. He was able to return to prior level of functioning ambulation, and ADLs and any of the thought process issues he had was rapidly clearing at time of DC. Labs (last 24 hrs) Laboratory Tests 03/24/19 05:40: White Blood Count 7.5, Red Blood Count 3.84L, Hemoglobin 11.7L, Hematocrit 36L, Mean Corpuscular Volume 94, Mean Corpuscular Hemoglobin 30, Mean Corpuscular Hemoglobin Concent 33, Red Cell Distribution Width 12.8, Platelet Count 232, Mean Platelet Volume 11.4H, Neutrophils (%) (Auto) 63, Lymphocytes (%) (Auto) 24, Monocytes (%) (Auto) 11, Eosinophils (%) (Auto) 2, Basophils (%) (Auto) 0, Neutrophils # (Auto) 4.7, Lymphocytes # (Auto) 1.8, Monocytes # (Auto) 0.8, Eosinophils # (Auto) 0.2, Basophils # (Auto) 0.0, Sodium Level 143, Potassium Level 3.7, Chloride Level 106, Carbon Dioxide Level 28, Anion Gap 9, Blood Urea Nitrogen 8, Creatinine 0.73, Estimat Glomerular Filtration Rate > 60, BUN/Creatinine Ratio 11, Glucose Level 122H, Calcium Level 9.4, Corrected Calcium 9.7, Total Bilirubin 0.2, Aspartate Amino Transf (AST/SGOT) 36H, Alanine Aminotransferase (ALT/SGPT) 86H, Alkaline Phosphatase 106, Total Protein 6.1L, Albumin 3.6 03/27/19 04:55: White Blood Count 6.8, Red Blood Count 4.14L, Hemoglobin 12.2L, Hematocrit 40, Mean Corpuscular Volume 95, Mean Corpuscular Hemoglobin 30, Mean Corpuscular Hemoglobin Concent 31L, Red Cell Distribution Width 12.6, Platelet Count 204, Mean Platelet Volume 11.6H, Neutrophils (%) (Auto) 62, Lymphocytes (%) (Auto) 22, Monocytes (%) (Auto) 14H, Eosinophils (%) (Auto) 2, Basophils (%) (Auto) 0, Neutrophils # (Auto) 4.2, Lymphocytes # (Auto) 1.5, Monocytes # (Auto) 0.9, Eosinophils # (Auto) 0.1, Basophils # (Auto) 0.0, Sodium Level 142, Potassium Level 4.4, Chloride Level 105, Carbon Dioxide Level 28, Anion Gap 9, Blood Urea Nitrogen 10, Creatinine 0.77, Estimat Glomerular Filtration Rate > 60, BUN/Creatinine Ratio 13, Glucose Level 70, Calcium Level 9.2, Corrected Calcium 9.4, Total Bilirubin 0.2, Aspartate Amino Transf (AST/SGOT) 27, Alanine Aminotransferase (ALT/SGPT) 72H, Alkaline Phosphatase 111, Total Protein 6.4, Albumin 3.8 Pending Labs Laboratory Tests 03/24/19 05:40: White Blood Count 7.5, Red Blood Count 3.84, Hemoglobin 11.7, Hematocrit 36, Mean Corpuscular Volume 94, Mean Corpuscular Hemoglobin 30, Mean Corpuscular Hemoglobin Concent 33, Red Cell Distribution Width 12.8, Platelet Count 232, Mean Platelet Volume 11.4, Neutrophils (%) (Auto) 63, Lymphocytes (%) (Auto) 24, Monocytes (%) (Auto) 11, Eosinophils (%) (Auto) 2, Basophils (%) (Auto) 0, Neutrophils # (Auto) 4.7, Lymphocytes # (Auto) 1.8, Monocytes # (Auto) 0.8, Eosinophils # (Auto) 0.2, Basophils # (Auto) 0.0, Sodium Level 143, Potassium Level 3.7, Chloride Level 106, Carbon Dioxide Level 28, Anion Gap 9, Blood Urea Nitrogen 8, Creatinine 0.73, Estimat Glomerular Filtration Rate > 60, BUN/Creatinine Ratio 11, Glucose Level 122, Calcium Level 9.4, Corrected Calcium 9.7, Total Bilirubin 0.2, Aspartate Amino Transf (AST/SGOT) 36, Alanine Aminotransferase (ALT/SGPT) 86, Alkaline Phosphatase 106, Total Protein 6.1, Albumin 3.6 03/27/19 04:55: White Blood Count 6.8, Red Blood Count 4.14, Hemoglobin 12.2, Hematocrit 40, Mean Corpuscular Volume 95, Mean Corpuscular Hemoglobin 30, Mean Corpuscular Hemoglobin Concent 31, Red Cell Distribution Width 12.6, Platelet Count 204, Mean Platelet Volume 11.6, Neutrophils (%) (Auto) 62, Lymphocytes (%) (Auto) 22, Monocytes (%) (Auto) 14, Eosinophils (%) (Auto) 2, Basophils (%) (Auto) 0, Neutrophils # (Auto) 4.2, Lymphocytes # (Auto) 1.5, Monocytes # (Auto) 0.9, Eosinophils # (Auto) 0.1, Basophils # (Auto) 0.0, Sodium Level 142, Potassium Level 4.4, Chloride Level 105, Carbon Dioxide Level 28, Anion Gap 9, Blood Urea Nitrogen 10, Creatinine 0.77, Estimat Glomerular Filtration Rate > 60, BUN/Creatinine Ratio 13, Glucose Level 70, Calcium Level 9.2, Corrected Calcium 9.4, Total Bilirubin 0.2, Aspartate Amino Transf (AST/SGOT) 27, Alanine Aminotransferase (ALT/SGPT) 72, Alkaline Phosphatase 111, Total Protein 6.4, Albumin 3.8 Discharge Home Medications: Active Scripts Active Transderm-Scop (Scopolamine) 1 Each Patch.td72 1.5 Mg TD Q72H 30 Days Ondansetron Odt (Ondansetron) 4 Mg Tab.rapdis 4 Mg PO Q6H PRN Meclizine HCl 25 Mg Tablet 25 Mg PO TID PRN Levetiracetam 1,000 Mg Tablet 1,000 Mg PO BID Oxycodone IR (Oxycodone HCl) 5 Mg Tab 5 Mg PO Q6H PRN Doxazosin Mesylate 4 Mg Tablet 4 Mg NG DAILY Methocarbamol 500 Mg Tablet 500 Mg PO BID Reported Prozac (Fluoxetine HCl) 40 Mg Capsule 40 Mg PO DAILY Instructions to patient/family Please see electronic discharge instructions given to patient. 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
--- NOTE | 2019-03-29 10:14 | Speech Therapy Daily Note ---
Speech Daily Progress Note Subjective Date Seen by Provider: Mar 29, 2019 Time Seen by Provider: 00:30 The patient was excited that he has been able to eat his meals without difficulty. Objective Patient utilizes compensatory strategies as trained at 90-100% without cues. Assessment Assessment Current Status: Excellent Progress Speech Short Term Goals Short Term Goals Short Term Goals 1) The patient will complete memory tasks related to his daily needs at 90% or greater. 2) The patient will complete safety awareness tasks related to his daily needs at 90% or greater. 3) The patient will complete problem solving tasks related to his daily needs at 90% or greater. 4) The patient will tolerate least restrictive diet level without s/s of aspiration at 90% or greater. 5) The patient will utilize compensatory strategies as trained for safety of oral intake given minimal cues at 90% or greater. 6) The patient will progress to oral intake for nutrition/hydration without PEG intake at 90% or greater. Speech Internet Webmaster Goals Internet Webmaster Goals The patient will improve cognitive-communication necessary for safety and daily living tasks with minimal assist. The patient will maintain adequate nutrition/hydration via oral and/or PEG. Speech-Plan Patient/Family Goals Patient/Family Goals: Patient is discharging to his ex 's home today until he is able to return to his home. Treatment Plan Speech Therapy Treatment Plan: Discontinue ST, Goals Met Patient is consuming 100% of his meals without difficulty. Treatment Duration: Mar 29, 2019 Frequency: 5 times per week Estimated Hrs Per Day: .5 hour per day Rehab Potential: Good Barriers to Learning: Patient had cognitive deficits, however these have resolved. Pt/Family Agrees to Plan: Yes Safety Risks/Education Teaching Recipient: Patient Teaching Methods: Demonstration, Discussion Response to Teaching: Verbalize Understanding, Return Demonstration Education Topics Provided: Continued compensatory utilization upon his return home. Time Speech Therapy Time In: 08:30 Speech Therapy Time Out: 09:00 Total Billed Time: 30 Billed Treatment Time 1, DYST No QUALITY CODES: EXPRESSION OF IDEAS/WANTS: 4 UNDERSTANDING VERBAL CONTENT: 4 BRIEF INTERVIEW MENTAL STATUS: YES REPETITION OF 3 WORDS: 3 TEMPORAL ORIENTATION: YEAR: CORRECT, MONTH: CORRECT, DAY: CORRECT RECALL: SOCK, COLOR, BED MEMORY/RECALL ABILITY: SEASON, LOCATION OF ROOM, STAFF NAMES, THAT HE IS IN THE HOSPITAL ELIZABETH GUPTA Mar 29, 2019 10:14 POS
--- NOTE | 2019-03-29 10:26 | Therapy Team Discharge Summary ---
Therapy Discharge Summary Discharge Recommendations Date of Discharge Occupational Therapy Decreased Activ Tolerance, Impaired I ADL's, Impaired Self-Care Skills Speech-Language Pathology Patient is a pleasant 44 year old male who was admitted to the ARU s/p Subarrachnoid Hemorrhage. The patient was NPO with PEG placement on 03/20/19. MBS completed on 03/28/19 with results indicating safe oral intake of all consistencies. The patient was placed on a Dysphagis II diet level with patient consuming 100% without difficulty. The patient also received skilled ST for cognitive functioning due to decreased memory and safety awareness skills. Patient is discharging to home today. He has met ST goals and is discharging from skilled therapy as well. PT Senior Living Goals Air Table Operator Goals PT Senior Living Goals Time Frame: Apr 03, 2019 Roll Left to Right (QC): 6 Sit to Lying (QC): 6 Lying-Sitting on Side/Bed(QC): 6 Sit to Stand (QC): 6 Chair/Cyj-pi-Nevjd Xfer(QC): 6 Car Transfer (QC): 6 Does the Patient Walk: Yes Walk 10 feet (QC): 6 Walk 10ft-Uneven Surface(QC): 6 Walk 50ft with 2 Turns (QC): 6 Walk 150 ft (QC): 6 Does the Pt use WC or Scooter?: No 1 Step (curb) (QC): 6 4 Steps (QC): 6 12 Steps (QC): 6 Picking up an Object (QC): 6 OT Air Table Operator Goals Senior Living Goals Time Frame: Apr 06, 2019 Eating (FIM): 6 Eating (QC): 6 Oral Hygiene (QC): 6 Grooming(FIM): 6 Bathing(FIM): 6 Shower/Bathe Self (QC): 6 Upper Body Dressing(FIM): 6 Upper Body Dressing (QC): 6 Lower Body Dressing(FIM): 6 Lower Body Dressing (QC): 6 On/Off Footwear (QC): 6 Toileting(FIM): 6 Toileting Hygiene (QC): 6 Toilet/Commode Transfer (QC): 6 Additional Goals: 1-Demonstrate ADL Tasks, 2-Verbalize Understanding, 3-ImproveStrength/Karo 1=Demonstrate adherence to instructed precautions during ADL tasks. 2=Patient will verbalize/demonstrate understanding of assistive devices/modifications for ADL. 3=Patient will improve strength/tolerance for activity to enable patient to perform ADL's. Speech Air Table Operator Goals Air Table Operator Goals The patient will improve cognitive-communication necessary for safety and daily living tasks with minimal assist. Met The patient will maintain adequate nutrition/hydration via oral and/or PEG. Met ELIZABETH GUPTA Mar 29, 2019 10:26 POS
[2019-03-29] MEDS: doxAzosin 4 MG (CARDURA) TAB NG SCH (10:55)
[2019-03-29] MEDS: METHOCARBAMOL 500 MG (ROBAXIN) TABLET PO SCH (10:55)
[2019-03-29] MEDS: FOLIC ACID 1 MG TAB PO SCH (10:55)
[2019-03-29] MEDS: FLUoxetine HCL 20 MG (PROzac) CAP PO SCH (10:56)
--- NOTE | 2019-03-29 11:23 | NUR ---
Patient is in agreement with physician and ARU team to discharge home today with his ex- as planned. Discussed patient current feeding status with Speech Therapist, physician, ARU Stitch Wheeler. Patient indicated as safe for discharge, see therapy documentation and EMR progress notes. Unit RN to coordinate patient/caregiver education about PEG care/maintenance. Patient does not meet criteria for home health services and needs no DME. Followup appointments scheduled and presented to patient as part of discharge instructions by Unit RN.
[2019-03-29] MEDS ORDERED: SCOP1PAT11 TD (11:42)
--- NOTE | 2019-03-29 11:51 | Therapy Team Discharge Summary ---
Therapy Discharge Summary Discharge Recommendations Date of Discharge Occupational Therapy Pt admitted to ARU following acute hospitalization for SAH. On admission pt required set up for footwear and bathing. Skilled OT intervention focused on ADL training, transfers, and strengthening. Pt made good progress with therapy and by discharge is completing basic ADLs and transfers independently. Pt discharging this date. D/c ARU OT at this time. Decreased Activ Tolerance, Impaired I ADL's, Impaired Self-Care Skills PT Longterm Goals Data Entry Representative Goals PT Longterm Goals Time Frame: Apr 03, 2019 Roll Left to Right (QC): 6 Sit to Lying (QC): 6 Lying-Sitting on Side/Bed(QC): 6 Sit to Stand (QC): 6 Chair/Wtw-wh-Hxslx Xfer(QC): 6 Car Transfer (QC): 6 Does the Patient Walk: Yes Walk 10 feet (QC): 6 Walk 10ft-Uneven Surface(QC): 6 Walk 50ft with 2 Turns (QC): 6 Walk 150 ft (QC): 6 Does the Pt use WC or Scooter?: No 1 Step (curb) (QC): 6 4 Steps (QC): 6 12 Steps (QC): 6 Picking up an Object (QC): 6 OT Data Entry Representative Goals Longterm Goals Time Frame: Apr 06, 2019 Eating (FIM): 6 Eating (QC): 6 Oral Hygiene (QC): 6 Grooming(FIM): 6 Bathing(FIM): 6 Shower/Bathe Self (QC): 6 Upper Body Dressing(FIM): 6 Upper Body Dressing (QC): 6 Lower Body Dressing(FIM): 6 Lower Body Dressing (QC): 6 On/Off Footwear (QC): 6 Toileting(FIM): 6 Toileting Hygiene (QC): 6 Toilet/Commode Transfer (QC): 6 Additional Goals: 1-Demonstrate ADL Tasks, 2-Verbalize Understanding, 3-ImproveStrength/Karo 1=Demonstrate adherence to instructed precautions during ADL tasks. 2=Patient will verbalize/demonstrate understanding of assistive devices/modifications for ADL. 3=Patient will improve strength/tolerance for activity to enable patient to perform ADL's. Speech Longterm Goals Longterm Goals The patient will improve cognitive-communication necessary for safety and daily living tasks with minimal assist. Met The patient will maintain adequate nutrition/hydration via oral and/or PEG. Met JANASANNA L OT Mar 29, 2019 11:51 POS
== END 2019-03-29 11:45 | disposition home or self-care (01) | DRG 57 ==
PROVIDERS: ADMIT Internal Medicine; ATTEND Internal Medicine
DX: I69.011 Memory deficit following nontraumatic subarachnoid hemorrhage (principal); I69.111 Memory deficit following nontraumatic intracerebral hemorrhage; I69.091 Dysphagia following nontraumatic subarachnoid hemorrhage; I69.191 Dysphagia following nontraumatic intracerebral hemorrhage; R13.10 Dysphagia, unspecified; G91.1 Obstructive hydrocephalus; F41.9 Anxiety disorder, unspecified; F32.9 Major depressive disorder, single episode, unspecified; Z93.1 Gastrostomy status; Z87.891 Personal history of nicotine dependence
CPT/HCPCS: 36415; 74230; 80053; 85025

== ENCOUNTER 2020-05-25 17:23 | Emergency (ER) | payer OTHER ==
[~2020-05-25] VITALS: Ht 177.8 cm; Wt 96.6 kg
[~2020-05-25 17:23] MED LIST changes: +ACET160L40 PO; +DOCU50LI NG; +DOXA4TAB2 NG; +FLUO20CA42 PO; +FLUO40CA12 PO; +FOLI1TAB33 PO; +GUAI100L13 PO; +HEPA50002 SC; +LEVE10006 PO; +LEVE100S16 NG; +MAG355OR16 PO; +MECL-149 PO; +MELA3TAB39 PO; +METH500T7 PO; +ONDA4TAB11 PO; +OXC5T PO; +PANTOPRAZOLE NG; +SCOP1PAT11 TD
--- NOTE | 2020-05-25 17:35 | NUR ---
nose clamp applied upon arrival.
--- NOTE | 2020-05-25 17:38 | ED EENT ---
History of Present Illness General Chief Complaint: Nasal Problems Stated Complaint: NOSE BLEED/ON BLOOD THINNERS Source: patient Exam Limitations: no limitations (RAMAN ATKINS) History of Present Illness Date Seen by Provider: May 25, 2020 Time Seen by Provider: 17:20 Initial Comments Patient presents ER by private conveyance from home with chief complaint of epistaxis. This started at noon has been out of his left nostril. He says he had a sneezing fit and when he blew his nose it started bleeding. He is on Plavix for the past couple years after a mini stroke. He does not have a history of bloody noses before this. Has been doing pressure with his index finger and thumb as well as a couple puffs of Afrin when he went to urgent care a few hours ago. He says it will stop for a little bit and then started up again. He denies picking his nose or having seasonal allergies. He is not using any nasal sprays routinely. He says they did labs and told him his INR and other blood work was okay. He is not accompanied with a copy of labs. He does not have a history of anemia or low blood counts. No chest pain or shortness of air. (RAMAN ATKINS) Allergies and Home Medications Allergies Coded Allergies: No Known Drug Allergies (Unverified , 11/10/16) Home Medications Doxazosin Mesylate 4 Mg Tablet, 4 MG NG DAILY Prescribed by: MERRY RODRIGUEZ on 03/29/19 09 Fluoxetine HCl 40 Mg Capsule, 40 MG PO DAILY, (Reported) Levetiracetam 1,000 Mg Tablet, 1,000 MG PO BID Prescribed by: MERRY RODRIGUEZ on 03/29/19 09 Meclizine HCl 25 Mg Tablet, 25 MG PO TID PRN for DIZZINESS Prescribed by: MERRY RODRIGUEZ on 03/29/19952 Methocarbamol 500 Mg Tablet, 500 MG PO BID Prescribed by: MERRY RODRIGUEZ on 03/29/19952 Ondansetron 4 Mg Tab.rapdis, 4 MG PO Q6H PRN for NAUSEA/VOMITING-1ST LINE Prescribed by: MERRY RODRIGUEZ on 03/29/19 09 Oxycodone Hcl 5 Mg Tab, 5 MG PO Q6H PRN for PAIN-SEVERE (8-10) Prescribed by: MERRY RODRIGUEZ on 03/29/19 0953 Scopolamine 1 Each Patch.td72, 1.5 MG TD Q72H Prescribed by: GABRIEL GILMAN on 03/29/19 1142 Patient Home Medication List Home Medication List Reviewed: Yes (RAMAN ATKINS) Review of Systems Review of Systems Constitutional: No chills, No diaphoresis Eyes: Denies Blindness, Denies Blurred Vision Ears: Denies Dizziness, Denies Pain Nose: clots, epistaxis Mouth: denies clots, denies pain, denies swelling Throat: denies pain, denies swelling Skin: No change in color, No dryness (RAMAN ATKINS) Past Zpnsuav-Srcapt-Bxrxhp Hx Patient Social History Alcohol Use: Occasionally Uses Number of Drinks Today: AA Alcohol Beverage of Choice: Beer Smoking Status: Former Smoker Type Used: Cigarettes Recent Hopitalizations: Yes (RAMAN ATKINS) Immunizations Up To Date Date of Pneumonia Vaccine: Mar 03, 2018 (RAMAN ATKINS) Past Medical History Surgeries: Yes (ORAL SX (12 OR 14 YEARS OLD)) Respiratory: No Cardiac: No Neurological: Yes Stroke Genitourinary: No Gastrointestinal: No Musculoskeletal: No Endocrine: No HEENT: No Cancer: No Psychosocial: No Depression Integumentary: No Blood Disorders: No (RAMAN ATKINS) Physical Exam Vital Signs Vital Signs - First Documented 05/25/20 17:25 Temp 36.6 Pulse 104 Resp 19 B/P (MAP) 110/75 (87) Pulse Ox 98 O2 Delivery Room Air (LICO SHEPARD APRN) Height, Weight, BMI Height: 5'10.00" Weight: 183lbs. oz. 83.153738hm; 28.97 BMI Method:Stated General Appearance: WD/WN, no apparent distress Eyes: bilateral eye normal inspection, bilateral eye PERRL, bilateral eye EOMI Ears: bilateral ear auricle normal, bilateral ear canal normal, bilateral ear TM normal Nose: active bleeding (Left nare); No sinus tenderness; other (Some moist clot in the front of the nare but no polyp, AVM or other area to be cauterized anteriorly.) Mouth/Throat: other (Moist mucosa with blood clot) Cardiovascular: normal peripheral pulses, regular rate, rhythm Respiratory: no respiratory distress, no accessory muscle use (ARMAN ATKINS) Progress/Results/Core Measures Results/Orders Vital Signs/I&O 05/25/20 17:25 Temp 36.6 Pulse 104 Resp 19 B/P (MAP) 110/75 (87) Pulse Ox 98 O2 Delivery Room Air (LICO SHEPARD APRN) Progress Progress Note #1: Time: 17:37 Progress Note 4 puffs of Afrin in the left naris and 2 in the right. Nasal clamp was placed. We will reassess and 20 minutes. If it is still bleeding then we will put a posterior Rhino Rocket with TXA. Progress Note #2: Time: 17:49 Progress Note The patient's bleeding has stopped working to give him another 10 minutes and then take the clamp off. If it has stopped bleeding then we will send him home with the Afrin and the clamp and instructions. If however it begins to bleed again we will apply TXA to a nasal tampon and put it in his nose. Care of the patient has been handed off to the capable hands of Lico Shepard APRN. (RAMAN ATKINS) Departure Communication (Admissions) 181-I have taken over care of the patient at this time. The nose clamp was removed at about 1805. There was some slow oozing of blood from the left anterior nasal septum. This was suctioned and then cauterized with silver nitrate. No blood coming from the front. There is some clotted blood in the oropharynx. We will give him some water to gargle with to get the blood out of his throat and observe for about 30 minutes. 1849-small area of blood has appeared within the center of the area that I cauterized. This is minimal but I will go ahead and recauterize it. Otherwise there is no blood in the nostril or in the oropharynx. Will go ahead and discharge him home. (LICO SHEPARD APRN) Impression Primary Impression: Epistaxis Disposition: 01 HOME, SELF-CARE Condition: Improved Departure-Patient Inst. Referrals: ABDULKADIR SNYDER MD (PCP/Family) Primary Care Physician Patient Instructions: Nosebleeds (DC) RAMAN ATKINS May 25, 2020 17:38 LICO SHEPARD APRN May 25, 2020 18:13
[2020-05-25] MEDS ORDERED: TRANEXAMIC ACID 100 MG/ML 10 ML INJECTION ONE (17:45)
[2020-05-25 18:50] VITALS: BP 110/75
[2020-05-26] MEDS ORDERED: CEPH500C PO (01:37)
== END 2020-05-25 18:50 | disposition home or self-care (01) ==
LOC: EDUNIT# 17:23 → ER 17:24
DX: R04.0 Epistaxis (principal); F32.9 Major depressive disorder, single episode, unspecified; Z86.73 Personal history of transient ischemic attack (TIA), and cerebral infarction without residual deficits; Z87.891 Personal history of nicotine dependence
CPT/HCPCS: 99284

== ENCOUNTER 2020-05-25 20:50 | Emergency (ER) | payer OTHER ==
[~2020-05-25] VITALS: Ht 177.8 cm; Wt 96.6 kg
--- NOTE | 2020-05-25 21:34 | ED EENT ---
History of Present Illness General Chief Complaint: Nasal Problems Stated Complaint: NOSE BLEED/ON BLOOD THINNERS Source: patient Exam Limitations: no limitations (TOM SHEPARD APRN) History of Present Illness Date Seen by Provider: May 25, 2020 Time Seen by Provider: 21:32 Initial Comments To ER with reports of a recurrent nosebleed left-sided. He was here earlier and we did some topical silver nitrate to the left side of the anterior nasal septum. Soon as he got home started bleeding again. History of CVA and is on Plavix. No history of nosebleeds. Timing/Duration: abrupt Severity: moderate Location: nose Prearrival Treatment: no prearrival treatment Associated Symptoms: denies symptoms (TOM SHEPARD APRN) Allergies and Home Medications Allergies Coded Allergies: No Known Drug Allergies (Unverified , 11/10/16) Home Medications Cephalexin 500 Mg Capsule, 500 MG PO TID Prescribed by: REUBEN GARAY on 05/26/20 0137 Doxazosin Mesylate 4 Mg Tablet, 4 MG NG DAILY Prescribed by: MERRY RODRIGUEZ on 03/29/19 0953 Fluoxetine HCl 40 Mg Capsule, 40 MG PO DAILY, (Reported) Levetiracetam 1,000 Mg Tablet, 1,000 MG PO BID Prescribed by: MERRY RODRIGUEZ on 03/29/19 0953 Meclizine HCl 25 Mg Tablet, 25 MG PO TID PRN for DIZZINESS Prescribed by: MERRY RODRIGUEZ on 03/29/19 0953 Methocarbamol 500 Mg Tablet, 500 MG PO BID Prescribed by: MERRY RODRIGUEZ on 03/29/19 0953 Ondansetron 4 Mg Tab.rapdis, 4 MG PO Q6H PRN for NAUSEA/VOMITING-1ST LINE Prescribed by: MERRY RODRIGUEZ on 03/29/19 0953 Oxycodone Hcl 5 Mg Tab, 5 MG PO Q6H PRN for PAIN-SEVERE (8-10) Prescribed by: MERRY RODRIGUEZ on 03/29/19 0953 Scopolamine 1 Each Patch.td72, 1.5 MG TD Q72H Prescribed by: GABRIEL GILMAN on 03/29/19 1142 Patient Home Medication List Home Medication List Reviewed: Yes (TOM SHEPARD APRN) Review of Systems Review of Systems Constitutional: see HPI Eyes: No Symptoms Reported Ears: No Symptoms Reported Nose: no symptoms reported Mouth: no symptoms reported Throat: no symptoms reported Respiratory: no symptoms reported Cardiovascular: no symptoms reported Musculoskeletal: no symptoms reported Skin: no symptoms reported Neurological: No Symptoms Reported Hematologic/Lymphatic: No Symptoms Reported Immunological/Allergic: no symptoms reported (TOM SHEPARD APRN) Past Qlinetb-Uoniqn-Smtwsq Hx Patient Social History Alcohol Beverage of Choice: Beer Type Used: Cigarettes Recent Hopitalizations: Yes (TOM SHEPARD APRN) Immunizations Up To Date Date of Pneumonia Vaccine: Mar 03, 2018 (TOM SHEPARD APRN) Past Medical History Surgeries: Yes (ORAL SX (12 OR 14 YEARS OLD)) Respiratory: No Cardiac: No Neurological: Yes Stroke Genitourinary: No Gastrointestinal: No Musculoskeletal: No Endocrine: No HEENT: No Cancer: No Psychosocial: No Depression Integumentary: No Blood Disorders: No (TOM SHEPARD APRN) Physical Exam Vital Signs Vital Signs - First Documented 05/25/20 21:03 Temp 36.6 Pulse 106 Resp 20 B/P (MAP) 160/99 (119) Pulse Ox 97 O2 Delivery Room Air (REUBEN CHAVARRIA MD) Height, Weight, BMI Height: 5'10.00" Weight: 183lbs. oz. 83.347750wb; 30.00 BMI Method:Stated General Appearance: WD/WN, no apparent distress Eyes: bilateral eye normal inspection, bilateral eye PERRL, bilateral eye EOMI Ears: bilateral ear auricle normal, bilateral ear canal normal, bilateral ear TM normal Nose: dried blood, other (Dried blood within the left nostril. No active bleeding seen. 5.5 cm rapid Rhino rocket placed.) Neck: non-tender, full range of motion Cardiovascular: regular rate, rhythm, no murmur Respiratory: chest non-tender, no respiratory distress, no accessory muscle use Neurologic/Psychiatric: alert, normal mood/affect, oriented x 3 Skin: normal color, warm/dry (TOM SHEPARD APRN) Progress/Results/Core Measures Results/Orders Lab Results Laboratory Tests Test 05/25/20 23:15 Range/Units White Blood Count 10.7 4.3-11.0 10^3/uL Red Blood Count 4.91 4.30-5.52 10^6/uL Hemoglobin 13.9 13.3-17.7 g/dL Hematocrit 42 40-54 % Mean Corpuscular Volume 86 80-99 fL Mean Corpuscular Hemoglobin 28 25-34 pg Mean Corpuscular Hemoglobin Concent 33 32-36 g/dL Red Cell Distribution Width 12.4 10.0-14.5 % Platelet Count 268 130-400 10^3/uL Mean Platelet Volume 10.5 9.0-12.2 fL Immature Granulocyte % (Auto) 0 % Neutrophils (%) (Auto) 71 42-75 % Lymphocytes (%) (Auto) 16 12-44 % Monocytes (%) (Auto) 11 0-12 % Eosinophils (%) (Auto) 1 0-10 % Basophils (%) (Auto) 1 0-10 % Neutrophils # (Auto) 7.6 1.8-7.8 10^3/uL Lymphocytes # (Auto) 1.8 1.0-4.0 10^3/uL Monocytes # (Auto) 1.1 H 0.0-1.0 10^3/uL Eosinophils # (Auto) 0.1 0.0-0.3 10^3/uL Basophils # (Auto) 0.1 0.0-0.1 10^3/uL Immature Granulocyte # (Auto) 0.0 0.0-0.1 10^3/uL Prothrombin Time 13.2 12.2-14.7 SEC INR Comment 1.0 0.8-1.4 Activated Partial Thromboplast Time 43 H 24-35 SEC Sodium Level 141 135-145 MMOL/L Potassium Level 3.8 3.6-5.0 MMOL/L Chloride Level 102 98-107 MMOL/L Carbon Dioxide Level 25 21-32 MMOL/L Anion Gap 14 5-14 MMOL/L Blood Urea Nitrogen 15 7-18 MG/DL Creatinine 0.84 0.60-1.30 MG/DL Estimat Glomerular Filtration Rate > 60 BUN/Creatinine Ratio 18 Glucose Level 122 H 70-105 MG/DL Calcium Level 10.3 H 8.5-10.1 MG/DL Corrected Calcium 9.9 8.5-10.1 MG/DL Total Bilirubin 0.5 0.1-1.0 MG/DL Aspartate Amino Transf (AST/SGOT) 37 H 5-34 U/L Alanine Aminotransferase (ALT/SGPT) 89 H 0-55 U/L Alkaline Phosphatase 125 40-136 U/L Total Protein 7.8 6.4-8.2 GM/DL Albumin 4.5 3.2-4.5 GM/DL (ERUBEN CHAVARRIA MD) My Orders Orders - REUBEN CHAVARRIA MD Labetalol Injection (Normodyne Injection (05/25/20 23:00) Cbc With Automated Diff (05/25/20 22:49) Comprehensive Metabolic Panel (05/25/20 22:49) Protime With Inr (05/25/20 22:49) Partial Thromboplastin Time (05/25/20 22:49) Ed Iv/Invasive Line Start (05/25/20 22:49) Labetalol Injection (Normodyne Injection (05/26/20 00:30) Amlodipine Tablet (Norvasc Tablet) (05/26/20 01:30) Cephalexin Capsule (Keflex Capsule) (05/26/20 01:30) (REUBEN CHAVARRIA MD) Medications Given in ED Current Medications Medications Dose Ordered Sig/Yu Route Start Time Stop Time Status Last Admin Dose Admin Labetalol HCl 10 mg ONCE ONCE IV 05/25/20 23:00 05/25/20 23:01 DC 05/25/20 23:21 10 MG Labetalol HCl 10 mg ONCE ONCE IV 05/26/20 00:30 05/26/20 00:31 DC 05/26/20 00:48 10 MG (REUBEN CHAVARRIA MD) Vital Signs/I&O 05/25/20 21:03 Temp 36.6 Pulse 106 Resp 20 B/P (MAP) 160/99 (119) Pulse Ox 97 O2 Delivery Room Air (REUBEN CHAVARRIA MD) Progress Progress Note #1: Progress Note Care of this patient from Tom Shepard after bilateral rapid Rhino tamponade's had been applied. Patient was still oozing some blood anteriorly and posteriorly around the packings. Blood pressure was still a bit elevated. Labetalol was administered. This did improve his systolic blood pressure down to around 130 but it is now creeping back up. A second dose of labetalol 10 mg IV has been administered. Bleeding seems to have tapered off. I additionally added 1 mL of air to each rapid Rhino. This caused too much pain after a while and the additional air was removed. We will monitor him for a little bit longer to make sure bleeding is controlled. Progress Note #2: Time: 01:45 Progress Note Bleeding continue to taper off. Patient was much more comfortable after the additional 1 mL of air was removed from each rapid Rhino. The second dose of labetalol did improve his blood pressure a little bit. He was additionally treated with Norvasc 5 mg. Bleeding was very minimal at the time of discharge and he continued to improve. We discussed use of Plavix and aspirin. I advised him to follow-up with his neurosurgeon or vascular surgeon to discuss if both Plavix and aspirin are still necessary since he is more than a year out from his last surgery. We will leave the rapid Rhino packings in place. He was advised to contact Dr. Rodrigez's office on Wednesday and to stay off of aspirin and Plavix until then. He was invited to call with any questions or concerns. (REUBEN CHAVARRIA MD) Departure Impression Primary Impression: Epistaxis Additional Impression: Hypertension Qualified Codes: I10 - Essential (primary) hypertension Disposition: HOME, SELF-CARE Condition: Improved Departure-Patient Inst. Referrals: ABDULKADIR SNYDER MD (PCP/Family) Primary Care Physician Patient Instructions: Nosebleeds (DC) Add. Discharge Instructions: Keep the nasal packing in until you are able to be evaluated at Dr. Rodrigez's clinic. Follow-up with Dr. Rodrigez or the ENT of your choice on Wednesday morning. If you are unable to get into Dr. Rodrigez's clinic, please return to the emergency room. Take the prophylactic antibiotic as prescribed. Do not take your aspirin or Plavix on Wednesday or Wednesday. Consider using a humidifier in your home to reduce dry nose and risk of further bleeding. Contact your neurosurgeon to discuss if you need to continue on both aspirin and Plavix. If you are unable to discuss the situation with a provider on Wednesday, resume use of aspirin and Plavix. Call or return to the emergency room with any questions or concerns. Return to the ER if you begin bleeding around the nasal packings. Consider g oing to a [facility] where they have ENT coverage. Follow-up with your primary care provider in the next week or two for a blood pressure check. Keep your head elevated as much as possible over the next 24 hours. All discharge instructions reviewed with patient and/or family. Voiced understanding. Scripts Cephalexin (Cephalexin) 500 Mg Capsule 500 MG PO TID, #15 CAP Prov: REUBEN CHAVARRIA MD 05/26/20 Copy Copies To 1: COLEMAN RODRIGEZ MD Copies To 2: ABDULKADIR SNYDER MD, PETER J APRN May 25, 2020 21:34 REUBEN CHAVARRIA MD May 26, 2020 01:02
[2020-05-25] MEDS ORDERED: LABETALOL HCL 20 MG/4 ML VIAL IV ONE (23:00)
[2020-05-25 23:25] LABS: BASOPHILS # (AUTO) 0.1 10^3/uL (0.0-0.1); BASOPHILS % (AUTO) 1 % (0-10); EOSINOPHILS # (AUTO) 0.1 10^3/uL (0.0-0.3); EOSINOPHILS % (AUTO) 1 % (0-10); HEMATOCRIT 42 % (40-54); HEMOGLOBIN 13.9 g/dL (13.3-17.7); LYMPHOCYTES # (AUTO) 1.8 10^3/uL (1.0-4.0); LYMPHOCYTES % (AUTO) 16 % (12-44); MEAN CORPUSCULAR HEMOGLOBIN 28 pg (25-34); MEAN CORPUSCULAR HGB CONC 33 g/dL (32-36); MEAN CORPUSCULAR VOLUME 86 fL (80-99); MEAN PLATELET VOLUME 10.5 fL (9.0-12.2); MONOCYTES # (AUTO) 1.1 10^3/uL (0.0-1.0); MONOCYTES % (AUTO) 11 % (0-12); NEUTROPHILS # (AUTO) 7.6 10^3/uL (1.8-7.8); NEUTROPHILS % (AUTO) 71 % (42-75); PLATELET COUNT 268 10^3/uL (130-400); WHITE BLOOD COUNT 10.7 10^3/uL (4.3-11.0)
[2020-05-25 23:35] LABS: ALBUMIN 4.5 GM/DL (3.2-4.5)
[2020-05-25 23:36] LABS: CHLORIDE 102 MMOL/L (98-107); POTASSIUM 3.8 MMOL/L (3.6-5.0); PROTHROMBIN TIME PATIENT 13.2 SEC (12.2-14.7); SODIUM 141 MMOL/L (135-145)
[2020-05-25 23:37] LABS: CALCIUM 10.3 MG/DL (8.5-10.1)
[2020-05-25 23:38] LABS: GLUCOSE 122 MG/DL (70-105); TOTAL PROTEIN 7.8 GM/DL (6.4-8.2)
[2020-05-25 23:39] LABS: CARBON DIOXIDE 25 MMOL/L (21-32)
[2020-05-25 23:40] LABS: BILIRUBIN,TOTAL 0.5 MG/DL (0.1-1.0)
[2020-05-25 23:41] LABS: ALKALINE PHOSPHATASE 125 U/L (40-136)
[2020-05-25 23:42] LABS: CREATININE SERUM 0.84 MG/DL (0.60-1.30); GFR ESTIMATED > 60
[2020-05-25 23:43] LABS: BUN/CREATININE RATIO 18
[2020-05-25 23:44] LABS: ALANINE AMINOTRANSFERASE 89 U/L (0-55)
[2020-05-26] MEDS ORDERED: LABETALOL HCL 20 MG/4 ML VIAL IV ONE (00:30)
[2020-05-26] MEDS ORDERED: CEPHALEXIN 250 MG (KEFLEX) CAP PO ONE (01:30)
[2020-05-26] MEDS ORDERED: amLODIPine 5 MG (NORVASC) TAB PO ONE (01:30)
[2020-05-26] MEDS ORDERED: CEPH500C PO (01:37)
[2020-05-26 01:58] VITALS: BP 143/75
== END 2020-05-26 01:53 | disposition home or self-care (01) ==
LOC: EDUNIT# 20:50 → ER 20:51
DX: R04.0 Epistaxis (principal); I10 Essential (primary) hypertension; F32.9 Major depressive disorder, single episode, unspecified; Z86.73 Personal history of transient ischemic attack (TIA), and cerebral infarction without residual deficits
CPT/HCPCS: 36415; 80053; 85025; 85610; 85730

== ENCOUNTER 2022-09-11 16:09 | Emergency (ER) | payer OTHER ==
[~2022-09-11] VITALS: Ht 172 cm; Wt 100.0 kg
[~2022-09-11 16:09] MED LIST changes: +CEPH500C PO; +METH-731 PO; -METH500T7 PO; +SCOP1PAT10 TD; -SCOP1PAT11 TD
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
--- NOTE | 2022-09-11 17:49 | Diagnostic Imaging Report ---
EXAMINATION: US Lower Extremity Arterial Duplex Right. TECHNIQUE: Multiple real-time grayscale images were obtained the right lower extremity in various projections. Additional duplex Doppler and color Doppler images were also obtained. HISTORY: swelling, pain COMPARISON: None available. FINDINGS: Right lower extremity: A monophasic waveform is seen throughout the right lower extremity arterial system. There is no focal hemodynamically significant stenosis seen. IMPRESSION: 1. There is mild atherosclerotic plaque in the right lower extremity arterial systems. There is no significant stenosis. IMPRESSION: Monophasic waveforms throughout the right lower extremity suggesting a more proximal stenosis. No arterial occlusion or high-grade stenosis identified in the right lower extremity. Dictated by: Dictated on workstation # [id number]
--- NOTE | 2022-09-11 17:50 | Diagnostic Imaging Report ---
EXAMINATION: US Right Lower Extremity Venous Duplex. TECHNIQUE: Multiple real-time grayscale images were obtained over the right lower extremity in various projections. Additional spectral analysis and color Doppler duplex images were also obtained. HISTORY: Right lower extremity swelling. COMPARISON: None available. FINDINGS: The right common femoral vein, deep femoral vein, superficial femoral vein and popliteal vein are patent with normal grayscale and Doppler appearance. There is normal respiratory variation and augmentation. The visualized calf vessels are patent. A prominent fluid collection is seen in the right calf measuring 15.2 x 3.5 x 7.0 cm. IMPRESSION: 1. No DVT of the right lower extremity. 2. Prominent fluid collection in the right calf. Dictated by: Dictated on workstation # [id number]
[2022-09-11 18:15] VITALS: BP 155/97
== END 2022-09-11 18:17 | disposition home or self-care (01) ==
LOC: EDUNIT# 16:09 → ER 16:12
DX: S80.11XA Contusion of right lower leg, initial encounter (principal); Z86.79 Personal history of other diseases of the circulatory system; Z86.73 Personal history of transient ischemic attack (TIA), and cerebral infarction without residual deficits; Z79.899 Other long term (current) drug therapy; V29.608A Unspecified rider of other motorcycle injured in collision with unspecified motor vehicles in traffic accident, initial encounter; Y92.410 Unspecified street and highway as the place of occurrence of the external cause
CPT/HCPCS: 93926

== ENCOUNTER → 2022-09-16 | Outpatient (CLI) | payer OTHER | LOC: ORTHO 09:53 | PROVIDERS: ATTEND Orthopaedic Surgery | DX: S80.11XA Contusion of right lower leg, initial encounter (principal) | CPT/HCPCS: 99203 ==